=== PATIENT | female | born 1965 | race Caucasian/White ===

== ENCOUNTER 2020-11-10 07:49 | Outpatient (CLI) | payer OTHER, SELFPAY | END 2020-11-10 07:50 | disposition home or self-care (01) | LOC: ANHAUDIO 07:53 | PROVIDERS: Visit Provider Otolaryngology | DX: H90.3 Sensorineural hearing loss, bilateral (principal) | CPT/HCPCS: 92537; 92540; 92546; 92557; 92567 ==

== ENCOUNTER 2025-04-29 15:35 | Outpatient (CLI) | payer MEDICARE, MEDICAID, SELFPAY ==
--- OUTSIDE RECORDS SUMMARY | 2014-03-22 02:34 | XMS_ITS | Continuity of Care Document ---
Author Organization [facility] Address [address] [facility] [address] [facility] [[email or web address]] [address] [place] [address] Phone Care Team Providers Care Tank Terminal Gauger Name Role Phone Aramis Phillips MD, FACS Unavailable Unavailab le Advance Directives Directive Yes / No Effective Date File Name No Information Encounters Encounter Description Practice Location Reason(s) For Visit Diagnoses Date Provider Providers Copied on Encounter [facility], [id number] [place] [address] [address], [place], [place], [id number], [place] tel:[phone] SEC Lanny Steinberg No Information [address] Jacqu[address] Self. [id number] [place] [address] Drive, [address], [place], [place], [id number], [place]. tel:[phone] Family History Family Member Type Diagnosis Age At Onset No Information Payers Payer name Insurance type Covered green party ID Authoriza tion(s) No Information Social History Type Description Quantity Date Captured Comments Sex Female Smoking Status No Information Chief Complaint And Reason For Visit No Information Reason For Referral Reason For Referral No Information History Of Present Illness Encounter Date Complaint History Of Prese nt Illness No Information Functional Status Date Functional Assessmen t No Information Instructions Date Instruction Additional Infor mation No Information Assessments Type Assessment Date No Information Patient Care Teams Name Effective Dates (start - stop) Status Members No Information
--- OUTSIDE RECORDS SUMMARY | 2025-04-29 15:37 | XMS_ITS | Encounter Summary ---
Author Organization [facility] Address [address] [place] [address] Phone Care Team Providers Care Crystal Grinder Name Role Phone Yusra Salazar MD Primary Care Provider Yusra Salazar MD Unavailable [phone] Landry Maria MD Unavailable [phone] Juan Felix MD Unavailable [phone] Annika Hartmann MD Unavailable [phone] Noe ALCARAZ MD, Michelle Unavailable [phone] Yoan Sharma MD Unavailable [phone] Provider, None Primary Care Provider UnavailKareen Humphreys APRN, CASKET TRIMMER Unavailable Walt Gage DO Primary Care Provider Reason for Visit * Reason Comments Medication Refill Encounter Details Date Type Department Care Team (Late st Contact Info) Description 06/15/2022 Refill [facility] [address] [place] [address] Madelyn Kelly MD [address] [place] [address] Medication Refill Social History Tobacco Use Types Packs/Day Years Used Date Smoking Tobacco: Never Smokeless Tobacco: Never Alcohol Use Standard Drinks/Week Comments No 0 (1 standard drink = 0.6 oz pur e alcohol) PHQ-2 Answer Date Recorded Total Score - Questions 1-9 0 11/0 12/2021 Education Answer Date Recorded What is the highest level of school you have completed or the highest degree you have received? 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 Not on file Not on file documented as of this encounter Miscellaneous Notes * Telephone Encounter - Lianet Mujica RN - 06/16/2022 8:38 AM CST duplicate NT TRAINER documented in this encounter Plan of Treatment Upcoming Encounters Date Type Department Care Team (Late st Contact Info) Description 05/30/2025 1:00 PM PARENT TRAINER Office Visit [facility] On[facility] [address] [place] [address] Juan Felix MD [address] [place] [address] Discharge Disposition: Discharged to home or Selfcare documented as of this encounter Goals Goal Patient Goal Type Associated Problems Recent Progress Patient-Stated? Author Behavioral Health Behavioral Health On track(2021 4:08 PM CDT) Yes Yoly Zarco LCSW Note: I just need to be able to cope with all this that is going on. Goal Reviewed with: patient today Readiness to change: Ready to change Department associated with goal: [facility] Steps to achieve goal: will identify at least two ways their behavioral health impacts their physical health and vice versa. will identify at least two ways/skills/habits to reduce exacerbation of co- occurring disorders. will implement at least one new way/skill/habit to reduce exacerbation of co-occurring disorders. Will attend video appointments at least 2x/month for 30 or 45 min individual session for at least 4 months. Behavioral Health Behavioral Health On track(2021 4:08 PM CDT) Yoly Roe LCSW Note: Dodie will manage depression and anxiety more effectively to have reduction of anxiety and depression symptoms. Goal Reviewed with: patient today Readiness to change: Ready to change Department associated with goal: [facility] Steps to achieve goal: to attend, at least twice monthly, 45 min individual video counseling sessions. to identify, verbalize and process at least three contributing factors/triggers to anxiety and depression. to identify and verbalize at least three actions/skills to prevent and/or cope with anxiety and depression. to put into action, at least one time weekly, for one month, an action/skill to prevent and or cope with anxiety and depression. documented as of this encounter Visit Diagnoses Diagnosis Nausea Nausea alone documented in this encounter Additional Health Concerns Infection Onset Date Last Indicated Resolved Time Respiratory Rule Out - RPA 08/08/2022 08/08/2022 0 08/08/2022 3:34 PM PARENT TRAINER Influenza 08/08/2022 08/08/2022 08/15/2022 12:1 6 AM PARENT TRAINER Assessment Noted Time PHQ-9 Depression Total Score: 0 04/26/20 22 2:16 PM PARENT TRAINER documented as of this encounter Care Teams Crystal Grinder Relationship Specialty Start Date End Date Yusra Salazar MD PCP - General Family Medicine 06/21/21 08/09/23 Provider, None [place] PCP - General 08/10/23 09/28/23 Walt Gage DO [facility] [place], [place] [id number] PCP - General Internal Medicine 09/29/23 Yusra Salazar MD Family Medicine 06/21/21 10/13/23 Landry Maria MD [address] [place], [place] [address] Consulting Physician Radiation Oncology 06/26/19 Juan Felix MD [address] [place], [place] [address] Consulting Physician Medical Oncology 06/26/19 Annika Hartmann MD [address] [place] [address] Consulting Physician General Surgery 06/26/19 Michelle Liu III, MD [address] [place] [address] Consulting Physician Urology 12/06/22 Yoan Sharma MD [address] [place] [address] Consulting Physician Neurology 07/26/23 Kareen Koenig APRN, CASKET TRIMMER [address] [place] [address] Nurse Practitioner Advanced Practice Nurse 10/14/22 documented as of this encounter
--- OUTSIDE RECORDS SUMMARY | 2025-04-29 15:38 | XMS_ITS | Encounter Summary ---
Author Organization [facility] Address [address] [place] [address] Phone Care Team Providers Care Planer Tailer Name Role Phone Yusra Salazar MD Primary Care Provider Yusra Salazar MD Unavailable [phone] Ladnry Maria MD Unavailable [phone] Juan Felix MD Unavailable [phone] Annika Hartmann MD Unavailable [phone] Noe ALCARAZ MD, Michelle Unavailable [phone] Yoan Sharma MD Unavailable [phone] Provider, None Primary Care Provider UnavailKareen Humphreys APRN, RESIDENTIAL TREATMENT COUNSELOR Unavailable Walt Gage DO Primary Care Provider Reason for Visit * Reason Comments Medication Refill Encounter Details Date Type Department Care Team (Late st Contact Info) Description 09/21/2022 Refill [facility] [address] [place] [id number] [place] [address] [place] [address] Medication Refill Social History Tobacco Use Types [...] Sex Assigned at Female 07/08/2023 8:53 PM HIP HOP ARTIST Legal Sex Female 10:43 PM CDT Gender Identity Female 07/08/2023 8:53 PM HIP HOP ARTIST Sexual Orientation Straight 07/08/2023 8: 59 PM HIP HOP ARTIST 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 No / Unsure 08/30/2022 3:10 PM CDT documented as of this encounter Miscellaneous Notes * Telephone Encounter - Teresa Jordan RN - 09/22/2022 12:10 PM CDT Medication failed the protocol, provider to review and approve the medication order if appropriate. Requested Prescriptions Pending Prescriptions Disp Refills gabapentin (NEURONTIN) 800 MG Tablet [Pharmacy Med Name: Gabapentin 800 MG Oral Tablet] 90 Tablet 0 Sig: TAKE 1 TABLET BY MOUTH THREE TIMES DAILY Not Delegated - Anticonvulsants Excluding Benzodiazepines Protocol Failed - 09/21/2022 5:50 PM Failed - This refill cannot be delegated Passed - Visit with relevant provider in past 12 months or upcoming 90 days Recent Visits Date Type Provider Dept 07/28/22 Office Visit Yusra Salazar MD [facility] 04/26/22 Office Visit Yusra Salazar MD [facility] 03/25/22 Office Visit Elle Marshall PAC [facility] 02/05/22 Office Visit Sabine Ramirez APRN, RESIDENTIAL TREATMENT COUNSELOR [facility] Showing recent visits within past 365 days and meeting all other requirements Future Appointments Date Type Provider Dept 10/27/22 Appointment Yusra Salazar MD [facility] Showing future appointments within next 90 days and meeting all other requirements Azelastine HCl 137 MCG/SPRAY Solution [Pharmacy Med Name: Azelastine HCl 137 MCG/SPRAY Nasal Solution] 30 mL 0 Sig: USE 1 SPRAY(S) IN NOSTRIL(S) ONCE DAILY Nasal Preparations - Other Protocol Passed - 09/21/2022 5:50 PM Passed - Visit with authorizing provider in past 12 months or upcoming 90 days Recent Visits Date Type Provider Dept 07/28/22 Office Visit Yusra Salazar MD [facility] 04/26/22 Office Visit Yusra Salazar MD [facility] 03/25/22 Office Visit Elle Marshall PAC [facility] 02/05/22 Office Visit Sabine Ramirez APRN, [facility] Showing recent visits within past 365 days and meeting all other requirements Future Appointments Date Type Provider Dept 10/27/22 Appointment Yusra Salazar MD [facility] Showing future appointments within next 90 days and meeting all other requirements documented in this encounter Plan of Treatment Upcoming Encounters Date Type Department Care Team (Late st Contact Info) Description 05/30/2025 1:00 PM HIP HOP ARTIST Office Visit [facility] Oncology Services [address] [place] [address] Juan Felix MD [address] [place] [address] Discharge Disposition: Discharged to home or Selfcare [...] Ready to change Department associated with goal: [facility] Steps to achieve goal: [...] Ready to change Department associated with goal: [facility] Steps to achieve goal: [...] documented as of this encounter Visit Diagnoses Not on filedocumented in this encounter Additional Health Concerns Assessment Noted Time PHQ-9 Depression Total Score: 0 04/26/20 22 2:16 PM HIP HOP ARTIST documented as of this encounter Care Teams Planer Tailer Relationship Specialty Start Date End Date Yusra Salazar MD PCP - General Family Medicine 06/21/21 08/09/23 Provider, None [place] PCP - General 08/10/23 09/28/23 Walt Gage DO [address] [place] [address] [place] [address] PCP - General Internal Medicine 09/29/23 Yusra Salazar MD Family Medicine 06/21/21 10/13/23 Landry Maria MD [address] [place] [address] Consulting Physician Radiation Oncology 06/26/19 Juan Felix MD [address] [place] [address] Consulting Physician Medical Oncology 06/26/19 Annika Hartmann MD [address] [place] [address] Consulting Physician General Surgery 06/26/19 Michelle Liu III, MD [address] [place] [address] Consulting Physician Urology 12/06/22 Yoan Sharma MD [address] [place] [address] Consulting Physician Neurology 07/26/23 Kareen Koenig APRN, RESIDENTIAL TREATMENT COUNSELOR [address] [place] [address] Nurse Practitioner Advanced Practice Nurse 10/14/22 documented as of this encounter
--- OUTSIDE RECORDS SUMMARY | 2025-04-29 15:38 | XMS_ITS | Encounter Summary ---
Author Organization [facility] Address [address] [place] [address] Phone Care Team Providers Care Alum Plant Operator Name Role Phone Landry Maria MD Unavailable Juan Felix MD Unavailable [phone] Annika Hartmann MD Unavailable Noe ALCARAZ MD, Courtney Unavailable Yoan Sharma MD Unavailable [phone] Kareen Koenig APRN, CASHIER PAYMENTS RECEIVED Unavailable Walt Gage DO Primary Care Provider Reason for Visit * Reason Comments Medication Refill Encounter Details Date Type Department Care Team (Late st Contact Info) Description 03/05/2024 Refill [facility] - [facility] - [place] [address] [place] [address] Kareen Koenig APRN, CASHIER PAYMENTS RECEIVED [address] [place] [address] Medication Refill Social History Tobacco Use Types Packs/Day Years Used Date Smoking Tobacco: Never Smokeless Tobacco: Never Alcohol Use Standard Drinks/Week Comments No 0 (1 standard drink = 0.6 oz pur e alcohol) PHQ-2 Answer Date Recorded Total Score - Questions 1-9 0 12/2021 Education Answer Date Recorded What is the highest level of school you have completed or the highest degree you have received? 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 documented in this encounter Plan of Treatment Upcoming Encounters Date Type Department Care Team (Late st Contact Info) Description 05/30/2025 1:00 PM TECHNICAL INSTRUCTOR COURSE DEVELOPER Office Visit [facility] Oncology Services [address] [place] [address] Juan Felix MD [address] [place] [address] Discharge Disposition: Discharged to home or Selfcare [...] Ready to change Department associated with goal: [facility] Steps to achieve [...] Ready to change Department associated with goal: [facility] Steps to achieve [...] Total Score: 0 04/26/20 22 2:16 PM TECHNICAL INSTRUCTOR COURSE DEVELOPER documented as of this encounter Care Teams Alum Plant Operator Relationship Specialty Start Date End Date Walt Gage DO [facility] [address] [place], [place] [id number] PCP - General Internal Medicine 09/29/23 Landry Maria MD [address] [place] [address] Consulting Physician Radiation Oncology 06/26/19 Juan Felix MD [address] [place] [address] Consulting Physician Medical Oncology 06/26/19 Annika Hartmann MD [address] [place] [address] Consulting Physician General Surgery 06/26/19 Michelle Liu III, MD [address] [place] [address] Consulting Physician Urology 12/06/22 Yoan Sharma MD [address] [place] [address] Consulting Physician Neurology 07/26/23 Kareen Koenig APRN, CASHIER PAYMENTS RECEIVED [address] [place] [address] Nurse Practitioner Advanced Practice Nurse 10/14/22 documented as of this encounter
--- OUTSIDE RECORDS SUMMARY | 2025-04-29 15:38 | XMS_ITS | Encounter Summary ---
Author Organization [facility] Address [address] [place] [address] Phone Care Team Providers Care Electric Motor Fitter Name Role Phone Yusra Salazar MD Primary Care Provider Yusra Salazar MD Unavailable Landry Maria MD Unavailable [phone] Juan Felix MD Unavailable [phone] Annika Hartmann MD Unavailable [phone] Noe ALCARAZ MD, Michelle Unavailable [phone] Yoan Sharma MD Unavailable [phone] Provider, None Primary Care Provider UnavailKareen Humphreys APRN, MANAGER FLIGHT Unavailable Walt Gage DO Primary Care Provider Reason for Visit * Reason Onset Date Comments Referral 08/13/2022 Encounter Details Date Type Department Care Team (Late st Contact Info) Description 08/13/2022 Telephone [facility] Referral Management Services [address] [place] [address] [place] [address] [place] [address] Referral Social History Tobacco Use Types Packs/Day Years Used Date Smoking Tobacco: Never Smokeless Tobacco: Never Alcohol Use Standard Drinks/Week Comments No 0 (1 standard drink = 0.6 oz pur e alcohol) PHQ-2 Answer Date Recorded Total Score - Questions 1-9 0 110 12/2021 Education Answer Date Recorded What is the highest level of school you have completed or the highest degree you have received? 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 No / Unsure 08/08/2022 2:01 PM MONEY ORDER CLERK documented as of this encounter Miscellaneous Notes * Telephone Encounter - Florencia Lai - 08/13/2022 10:03 AM CST SITUATION: Patient requesting provider review Pain Referral. BACKGROUND: Referral unable to be processed. ASSESSMENT: Request for provider review due to the following reason(s): we were unable to contact patient regarding this referral Closing this referral at this time, but if patient decides to pursue at a later time, it can be opened and worked RECOMMENDATION: Based on the above information the provider has the following option(s): Cancel existing referral. [facility] OnCall - Centralized Referral Management 08/13/2022, 10:03 AM MONEY ORDER CLERK Y ORDER CLERK documented in this encounter Plan of Treatment Upcoming Encounters Date Type Department Care Team (Late st Contact Info) Description 05/30/2025 1:00 PM MONEY ORDER CLERK Office Visit [facility] Oncology Services [address] [place] [address] Juan Felix MD [address] [place] [address] Discharge Disposition: Discharged to home or Selfcare [...] Ready to change Department associated with goal: [facility] Steps to achieve [...] Behavioral Health On track(2021 4:08 PM CDT) No Yoly Zarco LCSW Note: Dodie will manage depression and anxiety more effectively to have reduction of anxiety and depression symptoms. Goal Reviewed with: patient today Readiness to change: Ready to change Department associated with goal: [facility] Steps to achieve [...] filedocumented in this encounter Additional Health Concerns Infection Onset Date Last Indicated Resolved Time Influenza 08/08/2022 08/08/2022 08/15/2022 12:1 6 AM MONEY ORDER CLERK Assessment Noted Time PHQ-9 Depression Total Score: 0 04/26/20 22 2:16 PM MONEY ORDER CLERK documented as of this encounter Care Teams Electric Motor Fitter Relationship Specialty Start Date End Date Yusra Salazar MD PCP - General Family Medicine 06/21/21 08/09/23 Provider, None [place] PCP - General 08/10/23 09/28/23 Walt Gage DO [address] [place] [address] [place] [address] PCP - General Internal Medicine 09/29/23 Yusra Salazar MD Family Medicine 06/21/21 10/13/23 Landry Maria MD [address] [place] [address] Consulting Physician Radiation Oncology 06/26/19 Juan Felix MD [address] [place] [address] Consulting Physician Medical Oncology 06/26/19 Annika Hartmann MD [address] [place] [address] Consulting Physician General Surgery 06/26/19 Michelle Liu III, MD [address] [place] [address] Consulting Physician Urology 12/06/22 Yoan Sharma MD [address] [place] [address] Consulting Physician Neurology 07/26/23 Kareen Koenig APRN, MANAGER FLIGHT [address] [place] [address] Nurse Practitioner Advanced Practice Nurse 10/14/22 documented as of this encounter
--- OUTSIDE RECORDS SUMMARY | 2025-04-29 15:38 | XMS_ITS | Encounter Summary ---
Author Organization [facility] Address [address] [place] [address] Phone Care Team Providers Care Practical Nursing Teacher Name Role Phone Landry Maria MD Unavailable [phone] Juan Felix MD Unavailable Annika Hartmann MD Unavailable [phone] Noe ALCARAZ MD, Courtney Unavailable Yoan Sharma MD Unavailable [phone] Kareen Koenig APRN, [facility] Unavailable Walt Gage DO Primary Care Provider Reason for Visit * Reason Comments Medication Refill Encounter Details Date Type Department Care Team (Late st Contact Info) Description 12/30/2023 Refill [facility] - Family [facility] [address] [place] [address] [place] [address] [place] [address] Medication Refill Social History Tobacco Use Types [...] Sex Assigned at Female 07/08/2023 8:53 PM OPTICAL GLASS SAWYER Legal Sex Female 10:43 PM CDT Gender Identity Female 07/08/2023 8:53 PM OPTICAL GLASS SAWYER Sexual Orientation Straight 07/08/2023 8: 59 PM OPTICAL GLASS SAWYER 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 Behavioral Health Behavioral Health On track(07/01/ 2022 4:08 PM CDT) Yoly Roe, SOLAR SALES ASSESSOR Note: Dodie will manage depression and anxiety more effectively to have reduction of anxiety and depression symptoms. Goal Reviewed with: patient today Readiness to change: Ready to change Department associated with goal: [facility] Steps to [...] Total Score: 0 04/26/20 22 2:16 PM OPTICAL GLASS SAWYER documented as of this encounter Care Teams Practical Nursing Teacher Relationship Specialty Start Date End Date Walt Gage DO [facility] [place] [address] PCP - General Internal Medicine 09/29/23 Landry Maria MD [address] [place] [address] Consulting Physician Radiation Oncology 06/26/19 Juan Felix MD [address] [place] [address] Consulting Physician Medical Oncology 06/26/19 Annika Hartmann MD [address] [place] [address] Consulting Physician General Surgery 06/26/19 Michelle Liu III, MD [address] [place] [address] Consulting Physician Urology 12/06/22 Yoan Sharma MD [address] [place] [address] Consulting Physician Neurology 07/26/23 Kareen Koenig APRN, DIRECT CHILL CASTER [address] [place] [address] Nurse Practitioner Advanced Practice Nurse 10/14/22 documented as of this encounter
--- OUTSIDE RECORDS SUMMARY | 2025-04-29 15:38 | XMS_ITS | Encounter Summary ---
Author Organization [facility] Address [address] [place] [address] Phone Care Team Providers Care Package Worker Name Role Phone Yusra Salazar MD Primary Care Provider Yusra Salazar MD Unavailable Landry Maria MD Unavailable Juan Felix MD Unavailable [phone] Annika Hartmann MD Unavailable [phone] Noe ALCARAZ MD, Michelle Unavailable [phone] Yoan Sharma MD Unavailable [phone] Provider, None Primary Care Provider UnavailKareen Humphreys APRN, RESIDENTIAL SALES REPRESENTATIVE Unavailable Walt Gage DO Primary Care Provider Reason for Visit * Reason Comments Medication Refill Encounter Details Date Type Department Care Team (Late st Contact Info) Description 07/21/2021 Refill [facility] [address] [place] [id number] [place] [address] [place] [address] Medication Refill Social History Tobacco Use Types Packs/Day Years Used Date Smoking Tobacco: Never Smokeless Tobacco: Never Alcohol Use Standard Drinks/Week Comments No 0 (1 standard drink = 0.6 oz pur e alcohol) PHQ-2 Answer Date Recorded Total Score - Questions 1-9 25 09/19 Education Answer Date Recorded What is the highest level of school you have completed or the highest degree you have received? 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 No / Unsure 07/15/2021 1:16 PM SUPERVISOR METAL CANS documented as of this encounter Miscellaneous Notes * Telephone Encounter - Karis Johnston RN - 07/21/2021 5:15 PM CST rOPINIRole (REQUIP) 0.25 MG Tablet 60 Tablet 0 07/09/2021 Sig - Route: Take 1 Tablet by mouth nightly. - Oral Sent to pharmacy as: rOPINIRole HCl 0.25 MG Oral Tablet (REQUIP) Class: E Prescribe E-Prescribing Status: Receipt confirmed by pharmacy (07/09/2021 ??1:05 PM SUPERVISOR METAL CANS) Order Questions ?? rOPINIRole (REQUIP) 0.25 MG Tablet [[id number]] 6940 Status: Active Ordering user: Yusra Salazar MD 07/09/21 5074 Authorized by: Yusra Salazar MD Frequency: Nightly 07/09/21 - Until Discontinued Released by: Yusra Salazar MD 07/09/21 1304 Pharmacy [facility] [address] [place] [address] RVISOR METAL CANS documented in this encounter Plan of Treatment Upcoming Encounters Date Type Department Care Team (Late st Contact Info) Description 05/30/2025 1:00 PM SUPERVISOR METAL CANS Office Visit [facility] Oncology Services [address] [place] [address] Juan Felix MD [address] [place] [address] Discharge Disposition: Discharged to home or Selfcare [...] Ready to change Department associated with goal: [facility] Steps to achieve goal: [...] Ready to change Department associated with goal: [facility] Steps to achieve goal: [...] RPA 08/08/2022 08/08/2022 0 08/08/2022 3:34 PM SUPERVISOR METAL CANS Influenza 08/08/2022 08/08/2022 08/15/2022 12:1 6 AM SUPERVISOR METAL CANS Assessment Noted Time PHQ-9 Depression Total Score: 25 021 5:00 PM CDT documented as of this encounter Care Teams Package Worker Relationship Specialty Start Date End Date Yusra Salazar MD PCP - General Family Medicine 06/21/21 08/09/23 Provider, [facility] PCP - General 08/10/23 09/28/23 Walt Gage DO [address] [place] [address] [place] [address] PCP - General Internal Medicine 09/29/23 Yusra Salazar MD Family Medicine 06/21/21 10/13/23 Landry Maria MD [address] [place], [place] [id number] Consulting Physician Radiation Oncology 06/26/19 Juan Felix MD [address] [place] [address] Consulting Physician Medical Oncology 06/26/19 Annika Hartmann MD [address] [place] [address] Consulting Physician General Surgery 06/26/19 Michelle Liu III, MD [address] [place] [address] Consulting Physician Urology 12/06/22 Yoan Sharma MD [address] [place] [id number] Consulting Physician Neurology 07/26/23 Kareen Koenig APRN, RESIDENTIAL SALES REPRESENTATIVE [address] [place] [address] Nurse Practitioner Advanced Practice Nurse 10/14/22 documented as of this encounter
--- OUTSIDE RECORDS SUMMARY | 2025-04-29 15:38 | XMS_ITS | Encounter Summary ---
Author Organization [facility] Address [address] [place] [address] Phone Care Team Providers Care Optical Effects Line Up Person Name Role Phone Yusra Salazar MD Primary Care Provider Yusra Salazar MD Unavailable [phone] Landry Maria MD Unavailable [phone] Juan Felix MD Unavailable [phone] Annika Hartmann MD Unavailable [phone] Noe ALCARAZ MD, Courtney Unavailable [phone] Yoan Sharma MD Unavailable [phone] Provider, None Primary Care Provider UnavailKareen Humphreys APRN, COUNTER CLERK TRACTOR PARTS Unavailable Walt Gage DO Primary Care Provider Reason for Visit * Reason Comments Medication Refill Encounter Details Date Type Department Care Team (Late st Contact Info) Description 03/29/2022 Refill [facility] - [place] [address] [place] [address] Sabine Ramirez, QUALITY LEAD, COUNTER CLERK TRACTOR PARTS [address] [address] Medication Refill Social History Tobacco Use Types Packs/Day Years Used Date Smoking Tobacco: Never Smokeless Tobacco: Never Alcohol Use Standard Drinks/Week Comments No 0 (1 standard drink = 0.6 oz pur e alcohol) PHQ-2 Answer Date Recorded Total Score - Questions 1-9 0 01/18 Education Answer Date Recorded What is the highest level of school you have completed or the highest degree you have received? 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 No / Unsure 03/25/2022 3:25 PM CDT documented as of this encounter Miscellaneous Notes * Telephone Encounter - Karis Johnston RN - 03/29/2022 3:54 PM CDT Medication failed the protocol, provider to review and approve the medication order if appropriate. Requested Prescriptions Pending Prescriptions Disp Refills hydrOXYzine (VISTARIL) 50 MG Capsule [Pharmacy Med Name: hydrOXYzine Pamoate 50 MG Oral Capsule] 90Capsule 0 Sig: TAKE 1 CAPSULE BY MOUTH THREE TIMES DAILY NEEDED FOR ANXIETY Not Delegated - Off Protocol Failed - 03/29/2022 9:10 AM Failed - This refill cannot be delegated Passed - Visit with relevant provider in past 12 months or upcoming 90 days Recent Visits Date Type Provider Dept 03/25/22 [facility] Office Visit Sabine Ramirez APRN, COUNTER CLERK TRACTOR PARTS [facility] 07/09/21 Office Visit Yusra Salazar MD [facility] 05/28/21 Office Visit [facility] Showing recent visits within past 365 days and meeting all other requirements Future Appointments Date Type Provider Dept 04/29/22 Appointment Yusra Salazar MD [facility] Showing future appointments within next 90 days and meeting all other requirements documented in this encounter Plan of Treatment Upcoming Encounters Date Type Department Care Team (Late st Contact Info) Description 05/30/2025 1:00 PM RECREATIONAL THERAPY TECHNICIAN Office Visit [facility] Oncology Services [address] [place] [address] Juan Felix MD [address] [place] [address] Discharge Disposition: Discharged to home or Selfcare [...] Ready to change Department associated with goal: [facility] Steps to achieve [...] Ready to change Department associated with goal: [facility] Steps to achieve [...] as of this encounter Visit Diagnoses Diagnosis Fibromyalgia Mylagia and myositis, unspecified documented in this encounter Additional Health Concerns Infection Onset Date Last Indicated Resolved Time Respiratory Rule Out - RPA 08/08/2022 08/08/2022 0 08/08/2022 3:34 PM RECREATIONAL THERAPY TECHNICIAN Influenza 08/08/2022 08/08/2022 08/15/2022 12:1 6 AM RECREATIONAL THERAPY TECHNICIAN Assessment Noted Time PHQ-9 Depression Total Score: 25 021 5:00 PM CDT documented as of this encounter Care Teams Optical Effects Line Up Person Relationship Specialty Start Date End Date Yusra Salazar MD PCP - General Family Medicine 06/21/21 08/09/23 Provider, None [place] PCP - General 08/10/23 09/28/23 Walt Gage DO [address] [place] [address] PCP - General Internal Medicine 09/29/23 Yusra Salazar MD Family Medicine 06/21/21 10/13/23 Landry Maria MD [address] [place] [address] Consulting Physician Radiation Oncology 06/26/19 Juan Felix MD [address] [place], [place] [phone] Consulting Physician Medical Oncology 06/26/19 Annika Hartmann MD [address] [place] [address] Consulting Physician General Surgery 06/26/19 Michelle Liu III, MD [address] [place] [address] Consulting Physician Urology 12/06/22 Yoan Sharma MD [address] [place] [phone] Consulting Physician Neurology 07/26/23 Kareen Koenig APRN, COUNTER CLERK TRACTOR PARTS [address] [place] [address] Nurse Practitioner Advanced Practice Nurse 10/14/22 documented as of this encounter
--- OUTSIDE RECORDS SUMMARY | 2025-04-29 15:38 | XMS_ITS | Clinical Summary ---
Author Organization [facility] Address [facility] [place] [address] Care Team Providers Care Bicycle Ii Assembler Name Role Phone Chance Valles NP Primary Care Provider [phone] Allergies Active Allergy Reactions Criticality Noted Date Comments Nsaids Other (see comment) 10/27/[address] MOLINA DOES NOT WANT HER TO TAKE Medications dicyclomine 20 MG tablet Take 20 mg by mouth. Active hydrOXYzine 50 MG capsule 3 times daily as needed. Active metoprolol succinate 50 MG 24 hr tablet Take 50 mg by mouth. Active HYDROXYPROPYL METHYLCELLULOSE 0.4 % Solution Active fluticasone propionate 50 MCG/ACT nasal spray 2 times daily. Reported on 09/08/2016 Active ranitidine 300 MG tablet Take 300 mg by mouth. 8 Active ropinirole 0.25 MG tablet Take 0.25 mg by mouth. Active sertraline 100 MG tablet Take 200 mg by mouth. Active SUMAtriptan 100 MG tablet Take 100 mg by mouth. Active tizanidine 4 MG tablet Active traMADol 50 MG tablet 0 8 Active gabapentin 300 MG capsule Take 600 mg by mouth 3 (three) times daily. Active ALPRAZolam 0.5 MG tablet 0 8 Active HYDROXYPROPYL METHYLCELLULOSE 0.4 % Solution Active Active Problems Problem Noted Date Diagnosed Date Myofascial muscle pain 04/26/2018 Cervical radiculopathy 01/18/2018 Family History Medical History Relation Comments Hypertension Brother Heart Attack Father arthersclerosis Father skin cancer Father tremors Father Hypertension Mother cataracts Mother non-Hodgkins Lymphoma Mother Relation Status Comments Brother Father Heart attack age 52 Mother Social History Tobacco Use Types Packs/Day Years Used Date Smoking Tobacco: Never Smokeless Tobacco: Never Alcohol Use Standard Drinks/Week Comments No 0 (1 standard drink = 0.6 oz pur e alcohol) Comments No Sex and Gender Information Value Date Recorded Sex Assigned at Not on file Legal Sex Female 1:40 PM CDT Gender Identity Not on file Sexual Orientation Not on file Occupation Industry Job Start Date Job End Date Not on file Not on file Not on file Not on file Last Filed Vital Signs Vital Sign Reading Time Taken Comments Blood Pressure 154/99 04/26/2018 2:22 PM BALLISTICS EXPERT Pulse 76 04/26/2018 2:22 PM BALLISTICS EXPERT Temperature 36.8 C (98.3 F) 04/26/2018 1:45 PM BALLISTICS EXPERT Respiratory Rate 18 04/26/2018 2:22 PM BALLISTICS EXPERT Oxygen Saturation 95% 04/26/2018 2:22 PM BALLISTICS EXPERT Inhaled Oxygen Concentration - - Weight 112.5 kg (248 lb) 04/26/2018 1:45 PM BALLISTICS EXPERT Height 171.5 cm (5' 7.5) 04/26/2018 1:45 PM BALLISTICS EXPERT Body Mass Index 38.27 04/26/2018 1:45 PM BALLISTICS EXPERT Plan of Treatment Health Maintenance Due Date Last Done Comments Colorectal Cancer Screening Colonoscopy (10 Years) 1967 Annual Physical 12/27/1970 Hepatitis C 12/27/1985 DTaP, Tdap and Td Vaccines ( 1 - Tdap) 12/27/1986 Hepatitis B Vaccines (1 of 3 - 19+ 3-dose series) 12/27/1986 Mammogram Screening 2007 Pneumococcal Vaccine: 50+ Ye ars (1 of 1 - PCV) 12/27/2017 Zoster Vaccines (1 of 2) 12/27/2017 COVID-19 Vaccine (2024-2 6 season) 2025 Influenza Adult (#1) 2025 Hepatitis A Vaccines Aged Out No long er eligible based on patient's age to complete this topic Meningococcal B Vaccine Aged Out No l onger eligible based on patient's age to complete this topic Meningococcal Vaccine Aged Out No edith krishna eligible based on patient's age to complete this topic RSV Immunizations Under 20 Months Aged Out No longer eligible based on patient's age to complete [place] [address] N[place]E Care Teams Bicycle Ii Assembler Relationship Specialty Start Date End Date Chance Valles NP PCP - General FAMILY PRACTICE 03/03/18
--- OUTSIDE RECORDS SUMMARY | 2025-04-29 15:38 | XMS_ITS | Encounter Summary ---
Author Organization [facility] Address [address] [place] [address] Phone Care Team Providers Care Inspector Bullet Slugs Name Role Phone Yusra Salazar MD Primary Care Provider Yusra Salazar MD Unavailable [phone] Landry Maria MD Unavailable Juan Felix MD Unavailable [phone] Annika Hartmann MD Unavailable [phone] Noe ALCARAZ MD, Michelle Unavailable [phone] Yoan Sharma MD Unavailable [phone] Provider, None Primary Care Provider UnavailKareen Humphreys APRN, IT OPERATIONS SPECIALIST Unavailable Walt Gage DO Primary Care Provider Reason for Visit * Reason Comments Medication Refill Encounter Details Date Type Department Care Team (Late st Contact Info) Description 03/04/2023 Refill [facility] [address] [place] [phone] [place] [address] [place] [address] Medication Refill Social History Tobacco Use Types [...] Sex Assigned at Female 07/08/2023 8:53 PM PAPER TUBE MACHINE OPERATOR Legal Sex Female 10:43 PM CDT Gender Identity Female 07/08/2023 8:53 PM PAPER TUBE MACHINE OPERATOR Sexual Orientation Straight 07/08/2023 8: 59 PM PAPER TUBE MACHINE OPERATOR 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 Requested Prescriptions Pending Prescriptions Disp Refills tiZANidine (ZANAFLEX) 4 MG Tablet [Pharmacy Med Name: tiZANidine HCl 4 MG Oral Tablet] 90 Tablet 0 Sig: TAKE 1 TABLET BY MOUTH THREE TIMES DAILY Not Delegated - Muscle Relaxants Protocol Failed - 03/04/2023 2:48 PM Failed - This refill cannot be delegated Failed - ALT less than 90 and AST less than 55 on record in past 12 months SGOT (AST) Date Value Ref Range Status 10/25/2022 88 (H) <=32 U/L Final SGPT (ALT) Date Value Ref Range Status 10/25/2022 62 (H) <=41 U/L Final Passed - Visit with relevant provider in past 12 months or upcoming 90 days Recent Visits Date Type Provider Dept 11/09/22 Office Visit Yusra Salazar MD [facility] 07/28/22 Office Visit Yusra Salazar MD [facility] 04/26/22 Office Visit Yusra Salazar MD [facility] 03/25/22 Office Visit Elle Marshall PAC [facility] Showing recent visits within past 365 days and meeting all other requirements Future Appointments No visits were found meeting these conditions. Showing future appointments within next 90 days and meeting all other requirements documented in this encounter Plan of Treatment Upcoming Encounters Date Type Department Care Team (Late st Contact Info) Description 05/30/2025 1:00 PM PAPER TUBE MACHINE OPERATOR Office Visit [facility] Oncology Services [address] [place] [phone] Juan Felix MD [address] [place] [address] Discharge Disposition: Discharged to home or Selfcare [...] Ready to change Department associated with goal: [facility] Steps [...] PM CDT) No Yoly Zarco LCSW Note: Ddoie will manage depression and anxiety more effectively to have reduction of anxiety and depression symptoms. Goal Reviewed with: patient today Readiness to change: Ready to change Department associated with goal: [facility] Steps [...] Total Score: 0 04/26/20 22 2:16 PM PAPER TUBE MACHINE OPERATOR documented as of this encounter Care Teams Inspector Bullet Slugs Relationship Specialty Start Date End Date Yusra Salazar MD PCP - General Family Medicine 06/21/21 08/09/23 Provider, [facility] PCP - General 08/10/23 09/28/23 Walt Gage DO [address] [place] [address] [place], [place] [id number] PCP - General Internal Medicine 09/29/23 Yusra Salazar MD Family Medicine 06/21/21 10/13/23 Landry Maria MD [address] [place] [address] Consulting Physician Radiation Oncology 06/26/19 Juan Felix MD [address] [place] [address] Consulting Physician Medical Oncology 06/26/19 Annika Hartmann MD [address] [place] [address] Consulting Physician General Surgery 06/26/19 Michelle Liu III, MD [address] [place] [address] Consulting Physician Urology 12/06/22 Yoan Sharma MD [address] [place] [address] Consulting Physician Neurology 07/26/23 Kareen Koenig APRN, IT OPERATIONS SPECIALIST [address] [place] [address] Nurse Practitioner Advanced Practice Nurse 10/14/22 documented as of this encounter
--- OUTSIDE RECORDS SUMMARY | 2025-04-29 15:38 | XMS_ITS | Encounter Summary ---
Author Organization [facility] Address [address] [place] [address] Care Team Providers Care Sprinkler Repair Technician Name Role Phone Unavailable Primary Care Provider Unavailabl e Encounter Details Date Type Department Care Team (Late st Contact Info) Description 02/10/2000 Outpatient Historical [facility] Primary Care - [address] [place] [address] Alan Pradhan, DO NO ADDRESS ON FILE Social History Tobacco Use Types Packs/Day Years Used Date Smoking Tobacco: Never Assessed Comments Unknown Sex and Gender Information Value Date Recorded Sex Assigned at Not on file Legal Sex Female 4:24 AM QUILL COLLECTOR Gender Identity Not on file Sexual Orientation Not on file documented as of this encounter Plan of Treatment Not on file documented as of this encounter Visit Diagnoses Not on filedocumented in this encounter
--- OUTSIDE RECORDS SUMMARY | 2025-04-29 15:38 | XMS_ITS | Encounter Summary ---
Author Organization [facility] Address [address] [place] [address] Phone Care Team Providers Care Health It Specialist Name Role Phone Yusra Salazar MD Primary Care Provider Yusra Salazar MD Primary Care Provider [phone] Yusra Salazar MD Unavailable Landry Maria MD Unavailable [phone] Juan Felix MD Unavailable [phone] Annika Hartmann MD Unavailable [phone] Noe ALCARAZ MD, Courtney Unavailable [phone] Yoan Sharma MD Unavailable [phone] Provider, None Primary Care Provider UnavailKareen Humphreys APRN, SUPERVISOR CHANNEL PROCESS Unavailable Walt Gage DO Primary Care Provider Reason for Visit * Reason Comments Medication Refill Encounter Details Date Type Department Care Team (Late st Contact Info) Description 01/07/2021 [facility] [address] [place] [address] Juan Felix MD [address] [place] [address] Medication Refill Social History Tobacco Use Types Packs/Day Years Used Date Smoking Tobacco: Never Smokeless Tobacco: Never Alcohol Use Standard Drinks/Week Comments No 0 (1 standard drink = 0.6 oz pur e alcohol) PHQ-2 Answer Date Recorded Total Score - Questions 1-9 25 09/19 Comments No Sex and Gender Information Value Date Recorded Sex Assigned at Female 07/08/2023 8:53 PM SURFACE LAY OUT TECHNICIAN Legal Sex Female 10:43 PM CDT Gender Identity Female 07/08/2023 8:53 PM SURFACE LAY OUT TECHNICIAN Sexual Orientation Straight 07/08/2023 8: 59 PM SURFACE LAY OUT TECHNICIAN 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 No / Unsure 12/29/2020 12:50 PM CDT documented as of this encounter Miscellaneous Notes * Telephone Encounter - Alyson Dalton RN - 01/08/2021 8:46 AM CDT Approved Effexor per last OV note. * Telephone Encounter - Diana Penaloza RN - 01/07/2021 11:00 AM CDT Refill request for Effexor-XR, 90 tabs ordered back in September. Okay to refill? documented in this encounter Plan of Treatment Upcoming Encounters Date Type Department Care Team (Late st Contact Info) Description 05/30/2025 1:00 PM SURFACE LAY OUT TECHNICIAN Office Visit [facility] Oncology Services [address] [place] [address] Juan Felix MD [address] [place] [address] Discharge Disposition: Discharged to home or Selfcare [...] Ready to change Department associated with goal: [facility] Steps to achieve goal: [...] Ready to change Department associated with goal: [facility] Steps to achieve goal: [...] Infection Onset Date Last Indicated Resolved Time COVID - 19 06/21/2021 06/21/2021 07/11/2021 12:1 6 AM SURFACE LAY OUT TECHNICIAN COVID - 19 Confirmed 06/21/2021 06/21/2021 022 12:16 AM SURFACE LAY OUT TECHNICIAN Respiratory Rule Out - RPA 08/08/2022 08/08/2022 0 08/08/2022 3:34 PM SURFACE LAY OUT TECHNICIAN Influenza 08/08/2022 08/08/2022 08/15/2022 12:1 6 AM SURFACE LAY OUT TECHNICIAN Assessment Noted Time PHQ-9 Depression Total Score: 25 021 5:00 PM CDT documented as of this encounter Care Teams Health It Specialist Relationship Specialty Start Date End Date Yusra Salazar MD PCP - General Family Medicine 02/15/19 06/20/21 Yusra Salazar MD PCP - General Family Medicine 06/21/21 08/09/23 Provider, None [place] PCP - General 08/10/23 09/28/23 Walt Gage DO [address] [place] [address] [place] [address] PCP - General Internal Medicine 09/29/23 Yusra Salazar MD Family Medicine 06/21/21 10/13/23 Landry Maria MD [address] [place], [place] [address] Consulting Physician Radiation Oncology 06/26/19 Juan Felix MD [address] [place] [address] Consulting Physician Medical Oncology 06/26/19 Annkia Hartmann MD [address] [place] [address] Consulting Physician General Surgery 06/26/19 Michelle Liu III, MD [address] [place] [address] Consulting Physician Urology 12/06/22 Yoan Sharma MD [address] [place] [address] Consulting Physician Neurology 07/26/23 Kareen Koenig APRN, SUPERVISOR CHANNEL PROCESS [address] [place] [address] Nurse Practitioner Advanced Practice Nurse 10/14/22 documented as of this encounter
--- OUTSIDE RECORDS SUMMARY | 2025-04-29 15:38 | XMS_ITS | Encounter Summary ---
Author Organization [facility] Address [address] [place] [address] Phone Care Team Providers Care Staker Surveying Name Role Phone Yusra Salazar MD Primary Care Provider Yusra Salazar MD Unavailable Landry Maria MD Unavailable Juan Felix MD Unavailable [phone] Annika Hartmann MD Unavailable [phone] Noe ALCARAZ MD, Michelle Unavailable [phone] Yoan Sharma MD Unavailable [phone] Provider, None Primary Care Provider UnavailKareen Humphreys APRN, CHANNELING MACHINE OPERATOR Unavailable Walt Gage DO Primary Care Provider Reason for Visit * Reason Comments Medication Refill Encounter Details Date Type Department Care Team (Late st Contact Info) Description 01/29/2023 Refill [facility] [address] [place] [id number] [place] [address] [place] [address] Medication Refill Social History Tobacco Use Types [...] Sex Assigned at Female 07/08/2023 8:53 PM ANIMAL BOUNTY HUNTER Legal Sex Female 10:43 PM CDT Gender Identity Female 07/08/2023 8:53 PM ANIMAL BOUNTY HUNTER Sexual Orientation Straight 07/08/2023 8: 59 PM ANIMAL BOUNTY HUNTER 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 Requested Prescriptions Pending Prescriptions Disp Refills venlafaxine (EFFEXOR-XR) 75 MG CAPSULE SR 24 HR [Pharmacy Med Name: Venlafaxine HCl ER 75 MG Oral Capsule Extended Release 24 Hour] 90 Capsule 0 Sig: Take 1 capsule by mouth once daily SNRI (6 Month Refill Only) Protocol Failed - 01/29/2023 2:51 AM Failed - Patient has established therapy with Serotonin-Norepinephrine Reuptake Inhibitors for at least 6 months Passed - Visit with relevant provider in past 6 months or upcoming 90 days Recent Visits Date Type Provider Dept 11/09/22 Office Visit Yusra Salazar MD [facility] Showing recent visits within past 182 days and meeting all other requirements Future Appointments Date Type Provider Dept 02/09/23 Appointment Yusra Salazar MD [facility] Showing future appointments within next 90 days and meeting all other requirements Passed - Has an encounter in the past 6 months with a depression or anxiety visit diagnosis documented in this encounter Plan of Treatment Upcoming Encounters Date Type Department Care Team (Late st Contact Info) Description 05/30/2025 1:00 PM ANIMAL BOUNTY HUNTER Office Visit [facility] Oncology Services [address] [place] [address] Juan Felix MD [address] [place] [address] Discharge Disposition: Discharged to home or Selfcare [...] Ready to change Department associated with goal: [facility] Steps to achieve goal: [...] Ready to change Department associated with goal: [facility] Steps to achieve goal: [...] Total Score: 0 04/26/20 22 2:16 PM ANIMAL BOUNTY HUNTER documented as of this encounter Care Teams Staker Surveying Relationship Specialty Start Date End Date Yusra Salazar MD PCP - General Family Medicine 06/21/21 08/09/23 Provider, [facility] PCP - General 08/10/23 09/28/23 Walt Gage DO [address] [place] [address] [address] [place], [place] [id number] PCP - General Internal Medicine 09/29/23 Yusra Salazar MD Family Medicine 06/21/21 10/13/23 Landry Maria MD [address] [place] [address] Consulting Physician Radiation Oncology 06/26/19 Juan Felix MD [address] [place] [address] Consulting Physician Medical Oncology 06/26/19 Annika Hartmann MD [address] [place] [address] Consulting Physician General Surgery 06/26/19 Michelle Liu III, MD [address] [place] [address] Consulting Physician Urology 12/06/22 Yoan Sharma MD [address] [place] [phone] Consulting Physician Neurology 07/26/23 Kareen Koenig APRN, CHANNELING MACHINE OPERATOR [address] [place] [address] Nurse Practitioner Advanced Practice Nurse 10/14/22 documented as of this encounter
--- OUTSIDE RECORDS SUMMARY | 2025-04-29 15:38 | XMS_ITS | Encounter Summary ---
Author Organization [facility] Address [address] [place] [address] Phone Care Team Providers Care Insole And Heel Stiffener Name Role Phone Yusra Salazar MD Primary Care Provider Yusra Salazar MD Unavailable Landry Maria MD Unavailable [phone] Juan Felix MD Unavailable [phone] Annika Hartmann MD Unavailable [phone] Noe ALCARAZ MD, Michelle Unavailable [phone] Yoan Sharma MD Unavailable [phone] Provider, None Primary Care Provider UnavailKareen Humphreys APRN, ACCOUNT MANAGER EDUCATION Unavailable Walt Gage DO Primary Care Provider Reason for Visit * Reason Comments Medication Refill Encounter Details Date Type Department Care Team (Late st Contact Info) Description 02/16/2023 Refill [facility] [address] [place] [id number] Florian Gómez MD [address] [address] Medication Refill Social History Tobacco Use Types [...] Sex Assigned at Female 07/08/2023 8:53 PM SENIOR INFORMATION SECURITY CONSULTANT Legal Sex Female 10:43 PM CDT Gender Identity Female 07/08/2023 8:53 PM SENIOR INFORMATION SECURITY CONSULTANT Sexual Orientation Straight 07/08/2023 8: 59 PM SENIOR INFORMATION SECURITY CONSULTANT 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 Requested Prescriptions Pending Prescriptions Disp Refills hydrOXYzine (VISTARIL) 50 MG Capsule [Pharmacy Med Name: hydrOXYzine Pamoate 50 MG Oral Capsule] 90Capsule 0 Sig: TAKE 1 CAPSULE BY MOUTH EVERY 6 HOURS NEEDED FOR ANXIETY Not Delegated - Off Protocol Failed - 02/16/2023 9:24 AM Failed - This refill cannot be delegated Passed - Visit with relevant provider in past 12 months or upcoming 90 days Recent Visits Date Type Provider Dept 11/09/22 Office Visit Yusra Salazar MD [facility] 07/28/22 Office Visit Yusra Salazar MD [facility] 04/26/22 Office Visit Yusra Salazar MD [facility] 03/25/22 Office Visit Elle Marshall PAC [facility] Showing recent visits within past 365 days and meeting all other requirements Future Appointments No visits were found meeting these conditions. Showing future appointments within next 90 days and meeting all other requirements documented in this encounter Plan of Treatment Upcoming Encounters Date Type Department Care Team (Late st Contact Info) Description 05/30/2025 1:00 PM SENIOR INFORMATION SECURITY CONSULTANT Office Visit [facility] Oncology Services [address] [place] [address] Juan Felix MD [address] [place] [address] Discharge Disposition: Discharged to home or Selfcare documented as of this encounter Goals Goal Patient Goal Type Associated Problems Recent Progress Patient-Stated? Author Behavioral Health Behavioral Health On track(2021 4:08 PM CDT) Yes Yoly Zaroc LCSW Note: I just need to be able to cope with all this that is going on. Goal Reviewed with: patient today Readiness to change: Ready to change Department associated with goal: [facility] Steps to achieve [...] Ready to change Department associated with goal: [facility] Steps to achieve [...] documented in this encounter Additional Health Concerns Assessment Noted Time PHQ-9 Depression Total Score: 0 04/26/20 22 2:16 PM SENIOR INFORMATION SECURITY CONSULTANT documented as of this encounter Care Teams Insole And Heel Stiffener Relationship Specialty Start Date End Date Yusra Salazar MD PCP - General Family Medicine 06/21/21 08/09/23 [facility] PCP - General 08/10/23 09/28/23 Walt Gage DO [address] [place] [address] [place] [address] PCP - General Internal Medicine 09/29/23 Yusra Salazar MD Family Medicine 06/21/21 10/13/23 Landry Maria MD [address] [place] [address] Consulting Physician Radiation Oncology 06/26/19 Juan Felix MD [address] [place] [address] Consulting Physician Medical Oncology 06/26/19 Annika Hartmann MD [address] [place] [address] Consulting Physician General Surgery 06/26/19 Michelle Liu III, MD [address] [place] [address] Consulting Physician Urology 12/06/22 Yoan Sharma MD [address] [place] [address] Consulting Physician Neurology 07/26/23 Kareen Koenig APRN, ACCOUNT MANAGER EDUCATION [address] [place] [address] Nurse Practitioner Advanced Practice Nurse 10/14/22 documented as of this encounter
--- OUTSIDE RECORDS SUMMARY | 2025-04-29 15:38 | XMS_ITS | Encounter Summary ---
Author Organization [facility] Address [address] [place] [address] Phone Care Team Providers Care Retail Wireless Sales Consultant Name Role Phone Yusra Salazar MD Primary Care Provider [phone] Yusra Salazar MD Unavailable Landry Maria MD Unavailable Juan Felix MD Unavailable [phone] Annika Hartmann MD Unavailable [phone] Noe ALCARAZ MD, Michelle Unavailable [phone] Yoan Sharma MD Unavailable [phone] Provider, None Primary Care Provider UnavailKareen Humphreys APRN, DELIVERY AND INSTALLATION SUBCONTRACTOR Unavailable Walt Gage DO Primary Care Provider Reason for Visit * Reason Comments Medication Refill Encounter Details Date Type Department Care Team (Late st Contact Info) Description 08/14/2022 Refill [facility] [address] [place] [id number] [place] [address] [place] [address] Medication Refill Social History Tobacco Use Types [...] Sex Assigned at Female 07/08/2023 8:53 PM CLIENT SERVICE MANAGER Legal Sex Female 10:43 PM CDT Gender Identity Female 07/08/2023 8:53 PM CLIENT SERVICE MANAGER Sexual Orientation Straight 07/08/2023 8: 59 PM CLIENT SERVICE MANAGER 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 No / Unsure 08/08/2022 2:01 PM CLIENT SERVICE MANAGER documented as of this encounter Miscellaneous Notes * Telephone Encounter - Teresa Jordan RN - 08/16/2022 1:45 PM CLIENT SERVICE MANAGER Medication failed the protocol, provider to review and approve the medication order if appropriate. Requested Prescriptions Pending Prescriptions Disp Refills meclizine (ANTIVERT) 25 MG Tablet [Pharmacy Med Name: Meclizine HCl 25 MG Oral Tablet] 30 Tablet 0 Sig: TAKE 1 TABLET BY MOUTH THREE TIMES DAILY NEEDED FOR DIZZINESS Not Delegated - Off Protocol Failed - 08/14/2022 12:22 PM Failed - This refill cannot be delegated Passed - Visit with relevant provider in past 12 months or upcoming 90 days Recent Visits Date Type Provider Dept 07/28/22 Office Visit Yusra Salazar MD [facility] 04/26/22 Office Visit Yusra Salazar MD [facility] 03/25/22 Office Visit Elle Marshall PAC [facility] 02/05/22 Office Visit Sabine Ramirez APRN, DELIVERY AND INSTALLATION SUBCONTRACTOR [facility] Showing recent visits within past 365 days and meeting all other requirements Future Appointments Date Type Provider Dept 10/27/22 Appointment Yusra Salazar MD [facility] Showing future appointments within next 90 days and meeting all other requirements NT SERVICE MANAGER documented in this encounter Plan of Treatment Upcoming Encounters Date Type Department Care Team (Late st Contact Info) Description 05/30/2025 1:00 PM CLIENT SERVICE MANAGER Office Visit [facility] Oncology Services [address] [place] [address] Juan Felix MD [address] [place] [address] Discharge Disposition: Discharged to home or Selfcare [...] Ready to change Department associated with goal: [facility] Steps to achieve [...] Ready to change Department associated with goal: [facility] Steps to achieve [...] Influenza 08/08/2022 08/08/2022 08/15/2022 12:1 6 AM CLIENT SERVICE MANAGER Assessment Noted Time PHQ-9 Depression Total Score: 0 04/26/20 2:16 PM CLIENT SERVICE MANAGER documented as of this encounter Care Teams Retail Wireless Sales Consultant Relationship Specialty Start Date End Date Yusra Salazar MD PCP - General Family Medicine 06/21/21 08/09/23 Provider, [facility] PCP - General 08/10/23 09/28/23 Walt Gage DO [address] [place] [address] [address] [place], [place] [id number] PCP - General Internal Medicine 09/29/23 Yusra Salazar MD Family Medicine 06/21/21 10/13/23 Landry Maria MD [address] [place] [address] Consulting Physician Radiation Oncology 06/26/19 Juan Felix MD [address] [place] [address] Consulting Physician Medical Oncology 06/26/19 Annika Hartmann MD [address] [place] [address] Consulting Physician General Surgery 06/26/19 Michelle Liu III, MD [address] [place] [address] Consulting Physician Urology 12/06/22 Yoan Sharma MD [address] [place] [address] Consulting Physician Neurology 07/26/23 Kareen Koenig APRN, DELIVERY AND INSTALLATION SUBCONTRACTOR [address] [place] [address] Nurse Practitioner Advanced Practice Nurse 10/14/22 documented as of this encounter
--- OUTSIDE RECORDS SUMMARY | 2025-04-29 15:38 | XMS_ITS | Encounter Summary ---
Author Organization [facility] Address [address] [place] [address] Phone Care Team Providers Care Mixer Crane Operator Name Role Phone Landry Maria MD Unavailable Juan Felix MD Unavailable Annika Hartmann MD Unavailable Noe ALCARAZ MD, Courtney Unavailable Yoan Sharma MD Unavailable Kareen Koenig APRN, RED CROSS WORKER Unavailable Walt Gage DO Primary Care Provider Reason for Visit * Reason Comments Medication Refill Encounter Details Date Type Department Care Team (Late st Contact Info) Description 03/31/2024 Refill [facility] - [place] [address] [place] [address] Kareen Koenig APRN, RED CROSS WORKER [address] [place] [address] Medication Refill Social History Tobacco Use Types [...] Sex Assigned at Female 07/08/2023 8:53 PM BENEFITS DIRECTOR Legal Sex Female 10:43 PM CDT Gender Identity Female 07/08/2023 8:53 PM BENEFITS DIRECTOR Sexual Orientation Straight 07/08/2023 8: 59 PM BENEFITS DIRECTOR 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 documented in this encounter Plan of Treatment Upcoming Encounters Date Type Department Care Team (Late st Contact Info) Description 05/30/2025 1:00 PM BENEFITS DIRECTOR Office Visit [facility] Oncology Services [address] [place] [address] Juan Felix MD [address] [place] [address] Discharge Disposition: Discharged to home or Selfcare [...] Ready to change Department associated with goal: [facility] Steps [...] Ready to change Department associated with goal: [facility] Steps [...] Total Score: 0 04/26/20 22 2:16 PM BENEFITS DIRECTOR documented as of this encounter Care Teams Mixer Crane Operator Relationship Specialty Start Date End Date Walt Gage DO [facility] [facility] [address] [place], [place] [id number] PCP - General Internal Medicine 09/29/23 Landry Maria MD [address] [place] [address] Consulting Physician Radiation Oncology 06/26/19 Juan Felix MD [address] [place] [address] Consulting Physician Medical Oncology 06/26/19 Annika Hartmann MD [address] [place] [address] Consulting Physician General Surgery 06/26/19 Michelle Liu III, MD [address] [place] [address] Consulting Physician Urology 12/06/22 Yoan Sharma MD [address] [place] [address] Consulting Physician Neurology 07/26/23 Kareen Koenig APRN, RED CROSS WORKER [address] [place] [address] Nurse Practitioner Advanced Practice Nurse 10/14/22 documented as of this encounter
--- OUTSIDE RECORDS SUMMARY | 2025-04-29 15:38 | XMS_ITS | Encounter Summary ---
Author Organization [facility] Address [address] [place] [address] Phone Care Team Providers Care Commercial Account Officer Name Role Phone Yusra Salazar MD Primary Care Provider Yusra Salazar MD Unavailable Landry Maria MD Unavailable [phone] Juan Felix MD Unavailable [phone] Annika Hartmann MD Unavailable [phone] Noe ALCARAZ MD, Michelle Unavailable [phone] Yoan Sharma MD Unavailable [phone] Provider, None Primary Care Provider UnavailKareen Humphreys APRN, WRAP CHECKER Unavailable Walt Gage DO Primary Care Provider Reason for Visit * Reason Comments Medication Refill Encounter Details Date Type Department Care Team (Late st Contact Info) Description 09/21/2022 Refill [facility] #[address] [place] [address] Madelyn Kelly MD [address] [place] [address] Medication Refill Social History Tobacco Use Types [...] Sex Assigned at Female 07/08/2023 8:53 PM WAGE ANALYST Legal Sex Female 10:43 PM CDT Gender Identity Female 07/08/2023 8:53 PM WAGE ANALYST Sexual Orientation Straight 07/08/2023 8: 59 PM WAGE ANALYST 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 No / Unsure 08/30/2022 3:10 PM CDT documented as of this encounter Miscellaneous Notes * Telephone Encounter - Abigail Mukherjee RN - 09/23/2022 9:33 AM CDT Medication refilled and signed [facility] chronic medication standing order for pediatric and adult patients. documented in this encounter Plan of Treatment Upcoming Encounters Date Type Department Care Team (Late st Contact Info) Description 05/30/2025 1:00 PM WAGE ANALYST [facility] [address] [place] [address] Juan Felix MD [address] [place] [address] Discharge Disposition: Discharged to home or Selfcare [...] session for at least 4 months. Behavioral [facility] Behavioral Health On track(2021 4:08 PM CDT) [...] Total Score: 0 04/26/20 22 2:16 PM WAGE ANALYST documented as of this encounter Care Teams Commercial Account Officer Relationship Specialty Start Date End Date Yusra Salazar MD PCP - General Family Medicine 06/21/21 08/09/23 Provider, None [place] PCP - General 08/10/23 09/28/23 Walt Gage DO [address] [place] [address] [place] [address] PCP - General Internal Medicine 09/29/23 Yusra Salazar MD Family Medicine 06/21/21 10/13/23 Landry Maria MD [address] [place] [address] Consulting Physician Radiation Oncology 06/26/19 Juan Felix MD [address] [place] [address] Consulting Physician Medical Oncology 06/26/19 [place] [address] [place] [address] Consulting Physician General Surgery 06/26/19 Michelle Liu III, MD [address] [place] [address] Consulting Physician Urology 12/06/22 Yona Sharma MD [address] [place] [address] Consulting Physician Neurology 07/26/23 Kareen Koenig APRN, WRAP CHECKER [address] [place] [address] Nurse Practitioner Advanced Practice Nurse 10/14/22 documented as of this encounter
--- OUTSIDE RECORDS SUMMARY | 2025-04-29 15:38 | XMS_ITS | Encounter Summary ---
Author Organization [facility] Address [address] [place] [address] Phone Care Team Providers Care Security Shift Supervisor Name Role Phone Landry Maria MD Unavailable Juan Felix MD Unavailable Annkia Hartmann MD Unavailable Noe ALCARAZ MD, Courtney Unavailable Yoan Sharma MD Unavailable [phone] Kareen Koenig APRN, HEAD LOFT WORKER Unavailable Walt Gage DO Primary Care Provider Reason for Visit * Reason Comments Medication Refill Encounter Details Date Type Department Care Team (Late st Contact Info) Description 05/15/2024 Refill [facility] - Family Medicine - [place] [address] [place] [address] Donaldo Stephens APRN, HEAD LOFT WORKER [address] [address] Medication Refill Social History Tobacco Use Types [...] Sex Assigned at Female 07/08/2023 8:53 PM BUSINESS TECHNOLOGY ANALYST Legal Sex Female 10:43 PM CDT Gender Identity Female 07/08/2023 8:53 PM BUSINESS TECHNOLOGY ANALYST Sexual Orientation Straight 07/08/2023 8: 59 PM BUSINESS TECHNOLOGY ANALYST 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 Not on file documented as of this encounter Miscellaneous Notes * Telephone Encounter - Karis Johnston RN - 05/15/2024 2:53 PM CST PCP: Walt Gage DO NESS TECHNOLOGY ANALYST documented in this encounter Plan of Treatment Upcoming Encounters Date Type Department Care Team (Late st Contact Info) Description 05/30/2025 1:00 PM BUSINESS TECHNOLOGY ANALYST Office Visit [facility] Oncology Services [address] [place] [address] Juan Felix MD [address] [place] [address] Discharge Disposition: Discharged to home or Selfcare [...] Ready to change Department associated with goal: [facility] Steps to achieve [...] Ready to change Department associated with goal: [facility] Steps to achieve [...] Total Score: 0 04/26/20 22 2:16 PM BUSINESS TECHNOLOGY ANALYST documented as of this encounter Care Teams Security Shift Supervisor Relationship Specialty Start Date End Date Walt Gage DO [facility] [facility] [place] [address] PCP - General Internal Medicine 09/29/23 Landry Maria MD [address] [place] [address] Consulting Physician Radiation Oncology 06/26/19 Juan Felix MD [address] [place] [address] Consulting Physician Medical Oncology 06/26/19 Annika Hartmann MD [address] [place] [address] Consulting Physician General Surgery 06/26/19 Michelle Liu III, MD [address] [place] [address] Consulting Physician Urology 12/06/22 Yoan Sharma MD [address] [place] [address] Consulting Physician Neurology 07/26/23 Kareen Koenig APRN, HEAD LOFT WORKER [address] [place] [address] Nurse Practitioner Advanced Practice Nurse 10/14/22 documented as of this encounter
--- OUTSIDE RECORDS SUMMARY | 2025-04-29 15:38 | XMS_ITS | Encounter Summary ---
Author Organization [facility] Address [address] [place] [address] Phone Care Team Providers Care Meeting Facilitator Name Role Phone Landry Maria MD Unavailable [phone] Juan Felix MD Unavailable [phone] Annika Hartmann MD Unavailable Noe ALCARAZ MD, Courtney Unavailable Yoan Sharma MD Unavailable [phone] Kareen Koenig APRN, SENIOR SALES ASSOCIATE Unavailable Walt Gage DO Primary Care Provider Reason for Visit * Reason Comments Medication Refill Encounter Details Date Type Department Care Team (Late st Contact Info) Description 03/09/2025 Refill [facility] - G[facility]enterology - [place] [address] [place] [address] Kareen Koenig APRN, SENIOR SALES ASSOCIATE [address] [place] [address] Medication Refill Social History Tobacco Use Types [...] Sex Assigned at Female 07/08/2023 8:53 PM PHARMACEUTICAL SALES Legal Sex Female 10:43 PM CDT Gender Identity Female 07/08/2023 8:53 PM [employer]ARMACEUTICAL SALES Sexual Orientation Straight 07/08/2023 8: 59 PM PHARMACEUTICAL SALES 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 Author Behavioral Health Behavioral Health On track(2021 4:08 PM CDT) Yes Yoly Zarco, ARCHITECT MANAGER Note: I just need to be able to cope with all this that is going on. Goal Reviewed with: patient today Readiness to change: Ready to change Department associated with goal: [facility] Steps to achieve [...] Health On track(2021 4:08 PM CDT) Yoly Roe, ARCHITECT MANAGER Note: Dodie will manage depression and anxiety more effectively to have reduction of anxiety and depression symptoms. Goal Reviewed with: patient today Readiness to change: Ready to change Department associated with goal: [facility] Steps to achieve [...] Total Score: 0 04/26/20 22 2:16 PM PHARMACEUTICAL SALES documented as of this encounter Care Teams Meeting Facilitator Relationship Specialty Start Date End Date Walt Gage DO [facility] [place] [address] PCP - General Internal Medicine 09/29/23 Landry Maria MD [address] [place] [address] Consulting Physician Radiation Oncology 06/26/19 Juan Felix MD [address] [place] [address] Consulting Physician Medical Oncology 06/26/19 Annika Hartmann MD [address] [place] [address] Consulting Physician General Surgery 06/26/19 Michelle Liu III, MD [address] [place] [address] Consulting Physician Urology 12/06/22 Yoan Sharma MD [address] [place] [address] Consulting Physician Neurology 07/26/23 Kareen Koenig APRN, SENIOR SALES ASSOCIATE [address] [place] [address] Nurse Practitioner Advanced Practice Nurse 10/14/22 documented as of this encounter
--- OUTSIDE RECORDS SUMMARY | 2025-04-29 15:38 | XMS_ITS | Clinical Summary ---
[facility] Address [address] [place] [address] Care Team Providers Care Commercial Lines Sales Executive Name Role Phone Walt Gage DO Primary Care Provider [phone] Allergies Active Allergy Reactions Criticality Noted Date Comments Nsaids (Non-Steroidal Anti-Inflammatory Drug) Other (See comments) Low 08/27/2021 BLEEDING, HAD BLEEDING DUODENAL ULCER 2019 Medications cholecalciferol (VITAMIN D-3) 50,000 unit tablet Take 1 tablet (50,000 Units total) by mouth once a week 7 Active meloxicam (MOBIC) 15 mg tablet Take 15 mg by mouth daily. Active SUMAtriptan (IMITREX) 100 mg tabletIndicatio ns:Migraine Take 1 tablet (100 mg total) by mouth once as needed for migraine (may repeat does in 2 hours if headache recurs) Active dicyclomine (BENTYL) 20 mg tabletIndicatio ns:Irritable Bowel Syndrome Take 1 tablet (20 mg total) by mouth every 6 (six) hours Active fluticasone (FLONASE) 50 mcg/actuation nasal spray Administer 1 spray into each nostril 2 (two) times a day Active gabapentin (NEURONTIN) 600 mg tablet Take 1 tablet (600 mg total) by mouth 3 (three) times a day Active hydrOXYzine (VISTARIL) 50 mg capsule Take 1 capsule (50 mg total) by mouth 3 (three) times a day as needed for itching Active omeprazole (PriLOSEC) 20 mg capsule Take 20 mg by mouth daily. Active ondansetron (ZOFRAN) 4 mg tablet Take 1 tablet (4 mg total) by mouth every 8 (eight) hours as needed for nausea or vomiting Active sertraline (ZOLOFT) 100 mg tablet Take 200 mg by mouth daily. Active traMADol (ULTRAM) 50 mg tablet Take 50 mg by mouth every 6 (six) hours. Active busPIRone (BUSPAR) 5 mg tablet Take 1 tablet (5 mg total) by mouth 3 (three) times a day 3 Active etanercept (ENBREL) 50 mg/mL (1 mL) pen injector Inject 1 mL (50 mg total) under the skin once a week 3 Active meclizine (ANTIVERT) 25 mg tablet TAKE 1 TABLET BY MOUTH THREE TIMES DAILY NEEDED FOR DIZZINESS [address] (PROTONIX) 40 mg EC tablet Take 1 tablet (40 mg total) by mouth daily 2 Active rOPINIRole (REQUIP) 0.25 mg tablet Take 1 tablet (0.25 mg total) by mouth daily Active tamoxifen (NOLVADEX) 20 mg tablet Take 1 tablet (20 mg total) by mouth daily 0 Active tiZANidine (ZANAFLEX) 4 mg tablet Take 1 tablet (4 mg total) by mouth 3 (three) times a day 3 Active venlafaxine XR (EFFEXOR-XR) 150 mg 24 hr capsule Take 1 capsule (150 mg total) by mouth daily 3 Active venlafaxine XR (EFFEXOR-XR) 75 mg 24 hr capsule Take 1 capsule (75 mg total) by mouth daily 3 Active clopidogreL (PLAVIX) 75 mg tablet Take 1 tablet (75 mg total) by mouth daily 30 tablet 11 3 Active clobetasoL (TEMOVATE) 0.05 % external solutionIndicat ions:Dermatosis of the Scalp Apply topically 2 (two) times a day Apply to scalp twice a day as needed 50 mL 11 3 Active mupirocin (BACTROBAN) 2 % ointmentIndicat ions:Prurigo nodularis APPLY TOPICALLY TO AFFECTED AREA ON ARM THREE TIMES DAILY 22 g 4 Active metoprolol XL (TOPROL-XL) 100 mg 24 hr tablet TAKE ONE TABLET (100 MG TOTAL) BY MOUTH DAILY AT 9 AM 60 tablet 11 5 Active dicyclomine (BENTYL) 10 mg capsule Take 1 capsule (10 mg total) by mouth 4 (four) times a day before meals and nightly Active metoclopramide (REGLAN) 5 mg tablet Take 1 tablet (5 mg total) by mouth 4 Active nortriptyline (PAMELOR) 10 mg capsule Take 1 capsule (10 mg total) by mouth 2 (two) times a day Active allopurinoL (ZYLOPRIM) 100 mg tablet Take 1 tablet (100 mg total) by mouth daily Active hydroxychloroqu ine (PLAQUENIL) 200 mg tablet Take 1 tablet (200 mg total) by mouth 2 (two) times a day Active lidocaine (XYLOCAINE) 5 % ointment Apply topically daily Active amLODIPine (NORVASC) 10 mg tablet Take 1 tablet (10 mg total) by mouth daily 30 tablet 11 5 08/23/19 26 Active Active Problems Problem Noted Date Diagnosed Date SOB (shortness of breath) 12/23/2022 Chest discomfort 12/23/2022 Palpitations 12/23/2022 Chronic bilateral low back pain without sciatica 08/27/2021 Lumbar radiculopathy 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/2021 manager intermediate current use of anticoagulant 2 Insomnia secondary to chronic pain 08/27/2021 Fibromyalgia 08/27/2021 Resolved Problems Problem Noted Date Diagnosed Date Resolved Date Acute appendicitis with localized peritonitis 12/30/19 17 12/29/2016 Surgical History Surgery Date Site/Laterality Comments APPENDECTOMY 12/17/2016 Lap appy SECTION 1995, 1998 CHOLECYSTECTOMY 06/20/1984 - 06/19/1985 TUBAL LIGATION TONSILLECTOMY Medical History Medical History Date Comments Arthritis Depression Diverticulitis, colon Fibromyalgia, primary Hiatal hernia Hypertension Migraine PCOS (polycystic ovarian syndrome) Family History Medical History Relation Name Comments Cancer Father Skin cancer Father Cancer Mother Lymphoma Mother Cancer Mother's Brother Pancreatic cancer Mother's Brother Stroke Paternal Grandmother Relation Name Status Comments Father Mother Mother's Brother Paternal Grandmother Social History Tobacco Use Types Packs/Day Years Used Date Smoking Tobacco: Never Alcohol Use Standard Drinks/Week Comments No 0 (1 standard drink = 0.6 oz pur e alcohol) PHQ-2 Answer Date Recorded PHQ-2 Total Score (If total score is 3 or more points, staff should administer the PHQ-9) 6 08/27/2021 Comments Unknown Sex and Gender Information Value Date Recorded Sex Assigned at Not on file Legal Sex Female 7:20 PM [facility] Gender Identity Female 05/23/2018 3:52 PM [facility] Sexual Orientation Choose not to disclose 2024 3:34 AM [facility] Last Filed Vital Signs Vital Sign Reading Time Taken Comments Blood Pressure 150/103 08/22/2024 2:35 PM [facility] Pulse 89 08/22/2024 2:35 PM [facility] Temperature - - Respiratory Rate 18 12/01/2022 12:58 PM CDT Oxygen Saturation 95% 08/27/2021 1:44 PM [facility] Inhaled Oxygen Concentration - - Weight 110.7 kg (244 lb) 08/22/2024 2:35 PM [facility] Height 170.2 cm (5' 7) 08/22/2024 2:35 PM [facility] Body Mass Index 38.22 08/22/2024 2:35 PM [facility] Plan of Treatment Health Maintenance Due Date Last Done Comments Cervical Cancer Screening 1967 Colon Cancer Screening-Colonoscopy 1967 Hepatitis C Screening 1967 DTaP/Tdap/Td Vaccine (1 - Tdap) 12/27/1978 Hepatitis B Screening 12/27/1985 Regular Well Visit/Exam 18-64 12/27/1985 Pneumococcal vaccine <65 (1 of 2 - PCV) 12/27/1986 Zoster Vaccine (1 of 2) 12/27/1986 Depression Screening 08/27/2022 08/27/2021, 08/28/19 22 Influenza Vaccine (#1) 2025 9, 06/01/2016, 03/13/2013 Breast Cancer Screening-Mammogram 03/22/2025 03/22/2024, 03/22/2024, 03/24/2023, Additional history exists Procedures Procedure Name Priority Date/Time Associated Diagnosis Comments DIGITAL MAMMOGRAPHY Routine 03/23/2013 1 0:21 AM CDT from Last 3 Months or Most Recently Relevant to Health Maintenance Results * DIGITAL MAMMOGRAPHY (03/23/2013 10:21 AM CDT) Anatomical Region Laterality Modality Breast Mammography 03/23/2013 10:2 1 AM CDT Narrative 03/23/2013 4:20 PM CDT Vrl Screening Mamm Bi Acc#: [id number] Performed by: yi DATE OF EXAM: Mar 23 2013 CLINICAL HISTORY: Routine screening. RESULT: Two views of each breast correlated to the studies dating back through 04/01/08 demonstrate a moderately dense fibroglandular pattern bilaterally. No suspicious mass or calcification is seen to suggest mammographic evidence of malignancy. Digital technology was employed plus computer-aided detection software (R2) was utilized in interpretation of these images. This facility utilizes a reminder system to notify patients of yearly mammograms. IMPRESSION: NO DEFINITIVE MAMMOGRAPHIC EVIDENCE OF MALIGNANCY. ANNUAL FOLLOW UP RECOMMENDED. BI-RADS CATEGORY 1: NEGATIVE EXAM. Interpreting Physician: SOSA OLSEN M.D. Read on: Mar 23 2013 10:24A Transcribed by: RADHA On: Mar 23 2013 2:21P Approved Electronically by: SOSA OLSEN M.D. on: Mar 23 2013 4:20P Ordering DR: MANUELA KWAN Attending : MANUELA KWAN Procedure Note Provider, MD Dagoberto - 10/14/2016 Vrl Screening Mamm Bi Acc#: [id number] Performed by: yi DATE OF EXAM: Mar 23 2013 CLINICAL HISTORY: Routine screening. RESULT: Two views of each breast correlated to the studies dating back popiqie75/13/08 demonstrate a moderately dense fibroglandular patternbilaterally. No suspicious mass or calcification is seen to suggestmammographic evidence of malignancy. Digital technology was employed pluscomputer-aided detection software (R2) was utilized in interpretation ofthese images. This facility utilizes a reminder system to notify patientsof yearly mammograms. IMPRESSION: NO DEFINITIVE MAMMOGRAPHIC EVIDENCE OF MALIGNANCY. ANNUAL FOLLOW UPRECOMMENDED. BI-RADS CATEGORY 1: NEGATIVE EXAM. Interpreting Physician: SOSA OLSEN M.D. Read on: Mar 23 2013 10:24A Transcribed by: RADHA On: Mar 23 2013 2:21P Approved Electronically by: SOSA OLSEN M.D. on: Mar 23 2013 4:20P Ordering DR: MANUELA KWAN Attending DR: MANUELA KWAN us Historical Provider MD [facility] Heidi l Result from Last 3 Months or Most Recently Relevant to Health Maintenance Insurance [facility] MEDICARE [facility] [employer] MEDICARE PPO Care Teams Commercial Lines Sales Executive Relationship Specialty Start Date End Date Walt Gage DO PCP - General Internal Medicine 08/29/24
--- OUTSIDE RECORDS SUMMARY | 2025-04-29 15:38 | XMS_ITS | Encounter Summary ---
Author Organization [facility] Address [address] [place] [address] Phone Care Team Providers Care Community Development Officer Name Role Phone Yusra Salazar MD Primary Care Provider [phone] Yusra Salazar MD Unavailable [phone] Landry Maria MD Unavailable [phone] Juan Felix MD Unavailable [phone] Annika Hartmann MD Unavailable [phone] Noe ALCARAZ MD, Michelle Unavailable [phone] Yoan Sharma MD Unavailable [phone] Provider, None Primary Care Provider UnavailKareen Humphreys APRN, CAREER DEVELOPMENT COUNSELOR Unavailable aWlt G[place] DO Primary Care Provider Reason for Referral * Consult, Test & Initiate Treatment (Routine) - Closed Specialty Diagnoses / Procedures Referred By Contpavithra t Referred To Contact Diagnoses Yusra Grimm MD Phone: tel: fax: [facility] [address] [place] [address] [address] [place] [address] Phone: tel: fax: Referral ID Status Reason Start Date Expiration Date Visits Re quested Visits Authorized [id number] Closed 08/04/2022 1 1 Scheduling Instructions Rula is being referred to dermatology or other specialist in patient's insurance network for R21 (ICD-10-CM) - 782.1 (ICD-9-CM) - Rash. See below for Rula's current medications, allergies and problem list. CURRENT MEDS: Current Outpatient Medications: Acetaminophen (TYLENOL EXTRA STRENGTH PO), Take by mouth., Disp: , Rfl: Azelastine HCl 137 MCG/SPRAY Solution, Use 1 spray(s) in each nostril once daily, Disp: 30 mL, Rfl: 2 busPIRone (BUSPAR) 5 MG Tablet, Take 1 Tablet by mouth 3 times daily., Disp: 270 Tablet, Rfl: 0 clopidogrel (PLAVIX) 75 MG Tablet, , Disp: , Rfl: dicyclomine (BENTYL) 20 MG Tablet, Take 1 Tablet by mouth 2 times daily., Disp: 120 Tablet, Rfl: 2 fluticasone (FLONASE) 50 MCG/ACT Suspension, 1 [place] by Nasal route daily. Use in each nostril as directed., Disp: 16 g, Rfl: 2 gabapentin (NEURONTIN) 800 MG Tablet, Take 1 Tablet by mouth 3 times daily., Disp: 90 Tablet, Rfl: 0 hydrOXYzine (VISTARIL) 50 MG Capsule, Take 1 Capsule by mouth every 6 hours as needed for Anxiety., Disp: 90 Capsule, Rfl: 0 lidocaine (XYLOCAINE) 5 % Ointment, APPLY OINTMENT EXTERNALLY THREE TIMES DAILY TO AREA ON CHEST WALL FOR PAIN., Disp: 36 g, Rfl: 1 meclizine (ANTIVERT) 25 MG Tablet, Take 1 Tablet by mouth 3 times daily as needed for Dizziness., Disp: 30 Tablet, Rfl: 0 metoprolol Succinate (TOPROL-XL) 100 MG TABLET SR 24 HR, Take 1 Tablet by mouth daily., Disp: 30 Tablet, Rfl: 0 ondansetron (ZOFRAN-ODT) 4 MG TABLET DISPERSIBLE, Take 1 Tablet by mouth every 8 hours as needed for Nausea - 1st line., Disp: 60 Tablet, Rfl: 0 pantoprazole (PROTONIX) 40 MG Tablet Delayed Response, TAKE 1 TABLET BY MOUTH ONCE DAILY 30 MINUTES BEFORE MEAL WITH PROTEIN, Disp: 90 Tablet, Rfl: 0 rOPINIRole (REQUIP) 1 MG Tablet, Take 1 tablet by mouth nightly, Disp: 90 Tablet, Rfl: 0 SUMAtriptan (IMITREX) 100 MG Tablet, Take 1 Tablet by mouth daily as needed for Migraine. May repeat after 2hrs not to exceed 2 tabs in 24hr period., Disp: 9 Tablet, Rfl: 2 tamoxifen citrate 20 MG Tablet, Take 1 Tablet by mouth daily, Disp: 90 Tablet, Rfl: 3 tiZANidine (ZANAFLEX) 4 MG Tablet, Take 1 Tablet by mouth 3 times daily., Disp: 90 Tablet, Rfl: 0 venlafaxine (EFFEXOR-XR) 150 MG CAPSULE SR 24 HR, Take 1 Capsule by mouth daily., Disp: 90 Capsule, Rfl: 1 No current facility-administered medications for this visit. ALLERGIES: -- Nsaids -- Other (see Comments) -- PATIENT STATES DR MOLINA DOES NOT WANT HER TO TAKE PROBLEM LIST: Patient Active Problem List: Fibromyalgia Obesity HTN (hypertension) Malignant neoplasm of upper-outer quadrant of right breast in female, estrogen receptor positive (HCC) Premenopausal patient History of therapeutic radiation Long-term current use of tamoxifen Major depressive disorder, recurrent episode, moderate with anxious distress (HCC) Lymphedema of breast ETING TRAFFIC COORDINATOR Reason for Visit * Reason Onset Date Comments Referral 08/03/2022 Encounter Details Date Type Department Care Team (Late st Contact Info) Description 08/03/2022 Telephone [facility] Referral Management Services [address] [place] [id number] [place] [address] [place] [address] Referral Social History Tobacco Use Types Packs/Day [...] Sex Assigned at Female 07/08/2023 8:53 PM MARKETING TRAFFIC COORDINATOR Legal Sex Female 10:43 PM CDT Gender Identity Female 07/08/2023 8:53 PM MARKETING TRAFFIC COORDINATOR Sexual Orientation Straight 07/08/2023 8: 59 PM MARKETING TRAFFIC COORDINATOR 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 No / Unsure 07/28/2022 1:44 PM MARKETING TRAFFIC COORDINATOR documented as of this encounter Miscellaneous Notes * Telephone Encounter - Chika Dunbar RN - 08/03/2022 6:29 PM CST Pended new referral ETING TRAFFIC COORDINATOR * Telephone Encounter - Florencia Lai - 08/03/2022 12:28 PM CST SITUATION: External office requesting provider review Dermatology Referral. BACKGROUND: Referral unable to be processed. Unfortunatley, although the Dx was updated, it won't update in theoriginal referral. Can a new referral be placed please and we will work it and send to external office ASSESSMENT: Request for provider review due to the following reason(s): Referral order inaccurate. RECOMMENDATION: Based on the above information the provider has the following option(s): Cancel existing referral. and Place new referral order. [facility] - Centralized Referral Management 08/03/2022, 12:34 PM MARKETING TRAFFIC COORDINATOR ETING TRAFFIC COORDINATOR documented in this encounter Plan of Treatment Upcoming Encounters Date Type Department Care Team (Late st Contact Info) Description 05/30/2025 1:00 PM MARKETING TRAFFIC COORDINATOR Office Visit [facility] Oncology Services [address] [place] [address] Juan Felix MD [address] [place] [address] Discharge Disposition: Discharged to home or Selfcare Scheduled Referrals Name Type Priority Associated Diagnoses Order Schedule EXTERNAL DERMATOLOGY REFERRAL Outpatient Referral Routine Rash Expected: 08/04/2022, Expires: 08/03/2023 documented as of this encounter Goals Goal Patient Goal Type Associated Problems Recent Progress Patient-Stated? Author [facility] Behavioral Health On track(2021 4:08 PM CDT) Yes Yoly Zraco LCSW Note: I just need to be [...] as of this encounter Visit Diagnoses Diagnosis Rash- Primary Rash and other nonspecific skin eruption documented in this encounter Additional Health Concerns Infection Onset Date Last Indicated Resolved Time Respiratory Rule Out - RPA 08/08/2022 08/08/2022 0 08/08/2022 3:34 PM MARKETING TRAFFIC COORDINATOR Influenza 08/08/2022 08/08/2022 08/15/2022 12:1 6 AM MARKETING TRAFFIC COORDINATOR Assessment Noted Time PHQ-9 Depression Total Score: 0 04/26/20 22 2:16 PM MARKETING TRAFFIC COORDINATOR documented as of this encounter Care Teams Community Development Officer Relationship Specialty Start Date End Date Yusra Salazar MD PCP - General Family Medicine 06/21/21 08/09/23 Provider, None MA PCP - General 08/10/23 09/28/23 Walt G[place] DO [facility] [place], [place] [id number] PCP - General Internal Medicine 09/29/23 Yusra Salazar MD Family Medicine 06/21/21 10/13/23 Landry Maria MD [address] [place] [address] Consulting Physician Radiation Oncology 06/26/19 Juan Felix MD [address] [place] [address] Consulting Physician Medical Oncology 06/26/19 Annika Hartmann MD [address] [place] [address] Consulting Physician General Surgery 06/26/19 Michelle Liu III, MD [address] [place] [address] Consulting Physician Urology 12/06/22 Yoan Sharma MD [address] [place] [address] Consulting Physician Neurology 07/26/23 Kareen Koenig APRN, CAREER DEVELOPMENT COUNSELOR [address] [place] [address] Nurse Practitioner Advanced Practice Nurse 10/14/22 documented as of this encounter
--- OUTSIDE RECORDS SUMMARY | 2025-04-29 15:38 | XMS_ITS | Encounter Summary ---
Author Organization [facility] Address [address] [place] [address] Phone Care Team Providers Care Extrusion Operator Name Role Phone Yusra Salazar MD Primary Care Provider Yusra Salazar MD Unavailable [phone] Landry Maria MD Unavailable Juan Felix MD Unavailable [phone] Annika Hartmann MD Unavailable [phone] Noe ALCARAZ MD, Michelle Unavailable [phone] Yoan Sharma MD Unavailable [phone] Provider, None Primary Care Provider UnavailKareen Humphreys APRN, STATISTICAL PROGRAMMER Unavailable Walt Gage DO Primary Care Provider Reason for Visit * Reason Comments Medication Refill Encounter Details Date Type Department Care Team (Late st Contact Info) Description 03/15/2023 Refill [facility] [address] [place] [id number] [place] [address] [place] [address] Medication Refill Social History Tobacco Use Types [...] Sex Assigned at Female 07/08/2023 8:53 PM ACADEMIC ASSISTANT Legal Sex Female 10:43 PM CDT Gender Identity Female 07/08/2023 8:53 PM ACADEMIC ASSISTANT Sexual Orientation Straight 07/08/2023 8: 59 PM ACADEMIC ASSISTANT 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 Requested Prescriptions Pending Prescriptions Disp Refills hydrOXYzine (VISTARIL) 50 MG Capsule [Pharmacy Med Name: hydrOXYzine Pamoate 50 MG Oral Capsule] 90Capsule 0 Sig: TAKE 1 CAPSULE BY MOUTH EVERY 6 HOURS NEEDED FOR ANXIETY Not Delegated - Off Protocol Failed - 03/15/2023 12:53 PM Failed - This refill cannot be delegated Passed - Visit with relevant provider in past 12 months or upcoming 90 days Recent Visits Date Type Provider Dept 11/09/22 Office Visit Yusra Salazar MD [facility] 07/28/22 Office Visit Yusra Salazar MD [facility] 04/26/22 Office Visit Yusra Salazar MD [facility] 03/25/22 Office Visit Elle Marshall PAC [facility] Showing recent visits within past 365 days and meeting all other requirements Future Appointments No visits were found meeting these conditions. Showing future appointments within next 90 days and meeting all other requirements documented in this encounter Plan of Treatment Upcoming Encounters Date Type Department Care Team (Late st Contact Info) Description 05/30/2025 1:00 PM ACADEMIC ASSISTANT Office Visit [facility] Oncology Services [address] [place] [address] Juan Felix MD [address] [place] [address] Discharge Disposition: Discharged to home or Selfcare [...] to change Department associated with goal: [facility] Steps to achieve [...] to change Department associated with goal: [facility] Steps to achieve [...] Total Score: 0 04/26/20 22 2:16 PM ACADEMIC ASSISTANT documented as of this encounter Care Teams Extrusion Operator Relationship Specialty Start Date End Date Yusra Salazar MD PCP - General Family Medicine 06/21/21 08/09/23 Provider, None [place] PCP - General 08/10/23 09/28/23 Walt Gage DO [facility] [place] [address] PCP - General Internal Medicine 09/29/23 Yusra Salazar MD Family Medicine 06/21/21 10/13/23 Landry Maria MD [address] [place] [address] Consulting Physician Radiation Oncology 06/26/19 Juan Felix MD [address] [place] [address] Consulting Physician Medical Oncology 06/26/19 Annika Hartmann MD [address] [place] [address] Consulting Physician General Surgery 06/26/19 Michelle Liu III, MD [address] [place] [address] Consulting Physician Urology 12/06/22 Yoan Sharma MD [address] [place] [address] Consulting Physician Neurology 07/26/23 Kareen Koenig APRN, STATISTICAL PROGRAMMER [address] [place] [address] Nurse Practitioner Advanced Practice Nurse 10/14/22 documented as of this encounter
--- OUTSIDE RECORDS SUMMARY | 2025-04-29 15:38 | XMS_ITS | Encounter Summary ---
Author Organization [facility] Address [address] [place] [address] Phone Care Team Providers Care Shear Operator Helper Name Role Phone Landry Maria MD Unavailable [phone] Juan Felix MD Unavailable Annika Hartmann MD Unavailable Noe ALCARAZ MD, Courtney Unavailable Yoan Sharma MD Unavailable [phone] Kareen Koenig APRN, SHIP WORKER Unavailable Walt Gage DO Primary Care Provider Reason for Visit * Reason Comments Medication Refill Encounter Details Date Type Department Care Team (Late st Contact Info) Description 03/05/2024 Refill [facility] [place] [address] [place] [address] Donaldo Stephens APRN, SHIP WORKER [address] [address] Medication Refill Social History Tobacco Use Types [...] Sex Assigned at Female 07/08/2023 8:53 PM DENTAL APPLIANCE MECHANIC Legal Sex Female 10:43 PM CDT Gender Identity Female 07/08/2023 8:53 PM DENTAL APPLIANCE MECHANIC Sexual Orientation Straight 07/08/2023 8: 59 PM DENTAL APPLIANCE MECHANIC 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 on file Not on file documented as of this encounter Miscellaneous Notes * Telephone Encounter - Karis Johnston RN - 03/05/2024 2:40 PM CDT PCP Walt Charlton DO documented in this encounter Plan of Treatment Upcoming Encounters Date Type Department Care Team (Late st Contact Info) Description 05/30/2025 1:00 PM DENTAL APPLIANCE MECHANIC Office Visit [facility] Oncology Services [address] [place] [phone] Juan Felix MD [address] [place] [address] Discharge Disposition: Discharged to home or Selfcare [...] to change Department associated with goal: [facility] Steps to achieve [...] to change Department associated with goal: [facility] Steps to achieve [...] Total Score: 0 04/26/20 22 2:16 PM DENTAL APPLIANCE MECHANIC documented as of this encounter Care Teams Shear Operator Helper Relationship Specialty Start Date End Date Walt Gage DO [facility] [place], [place] [id number] PCP - General Internal Medicine 09/29/23 Landry Maria MD [address] [place] [address] Consulting Physician Radiation Oncology 06/26/19 Juan Felix MD [address] [place] [address] Consulting Physician Medical Oncology 06/26/19 Annika Hartmann MD [address] [place] [address] Consulting Physician General Surgery 06/26/19 Michelle Liu III, MD [address] [place] [address] Consulting Physician Urology 12/06/22 Yoan Sharma MD [address] [place] [address] Consulting Physician Neurology 07/26/23 Kareen Koenig APRN, SHIP WORKER [address] [place] [address] Nurse Practitioner Advanced Practice Nurse 10/14/22 documented as of this encounter
--- OUTSIDE RECORDS SUMMARY | 2025-04-29 15:38 | XMS_ITS | Encounter Summary ---
Author Organization [facility] Address [address] [place] [address] Phone Care Team Providers Care Rodent Exterminator Name Role Phone Yusra Salazar MD Primary Care Provider Yusra Salazar MD Unavailable Landry Maria MD Unavailable Juan Felix MD Unavailable [phone] Annika Hartmann MD Unavailable [phone] Noe ALCARAZ MD, Michelle Unavailable [phone] Yoan Sharma MD Unavailable [phone] Provider, None Primary Care Provider UnavailKareen Humphreys APRN, DISTRICT AGENT Unavailable Walt Gage DO Primary Care Provider Reason for Visit * Reason Comments Medication Refill Encounter Details Date Type Department Care Team (Late st Contact Info) Description 09/07/2022 Refill [facility] [address] [place] [id number] [place] [address] [place] [address] Medication Refill Social History Tobacco Use Types [...] Sex Assigned at Female 07/08/2023 8:53 PM TELEPHONE [place] Legal Sex Female 10:43 PM CDT Gender Identity Female 07/08/2023 8:53 PM TELEPHONE [place] Sexual Orientation Straight 07/08/2023 8: 59 PM TELEPHONE [place] 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 No / Unsure 08/30/2022 3:10 PM CDT documented as of this encounter Miscellaneous Notes * Telephone Encounter - Karis Johnston RN - 09/07/2022 1:35 PM CDT Per nursing clinical judgement, provider to review and approve the medication(s) order(s) if appropriate. Requested Prescriptions Pending Prescriptions Disp Refills metoprolol Succinate (TOPROL-XL) 100 MG TABLET SR 24 HR [Pharmacy Med Name: Metoprolol Succinate ER100 MG Oral Tablet Extended Release 24 Hour] 30 Tablet 2 Sig: Take 1 tablet by mouth once daily Beta-Blockers Protocol Passed - 09/07/2022 1:10 PM Passed - BP on record in the past year Clinician-entered: BP Readings from Last 3 Encounters: 08/08/22 130/84 07/28/22 142/86 04/27/22 154/86 Patient-entered: No data recorded Passed - Visit with relevant provider in past 12 months or upcoming 90 days Recent Visits Date Type Provider Dept 07/28/22 Office Visit [facility] MD [facility] 04/26/22 Office Visit Yusra Salazar MD [facility] 03/25/22 Office Visit Elle Marshall, TRIS[facility] 02/05/22 Office Visit Sabine Ramirez APRN, DISTRICT AGENT [facility] Showing recent visits within past 365 days and meeting all other requirements Future Appointments Date Type Provider Dept 10/27/22 Appointment Yusra Salazar MD [facility] Showing future appointments within next 90 days and meeting all other requirements meclizine (ANTIVERT) 25 MG Tablet [Pharmacy Med Name: Meclizine HCl 25 MG Oral Tablet] 30 Tablet 0 Sig: TAKE 1 TABLET BY MOUTH THREE TIMES DAILY NEEDED FOR DIZZINESS There is no refill protocol information for this order documented in this encounter Plan of Treatment Upcoming Encounters Date Type Department Care Team (Late st Contact Info) Description 05/30/2025 1:00 PM TELEPHONE [place] Office Visit [facility] Oncology Services [address] [place] [address] Juan Felix MD [address] [place] [address] Discharge Disposition: Discharged to home or Selfcare documented as of this encounter Goals Goal Patient Goal Type Associated Problems Recent Progress Patient-Stated? Author Behavioral Health Behavioral Health On track(2021 4:08 PM CDT) Yes Yoly Zarco, BENCH CARPENTER Note: I just need to be able to cope with all this that is going on. Goal Reviewed with: patient today Readiness to change: Ready to change Department associated with goal: [facility] Steps to achieve [...] Ready to change Department associated with goal: [facility] Steps to achieve [...] Total Score: 0 04/26/20 22 2:16 PM TELEPHONE LINEMAN documented as of this encounter Care Teams Rodent Exterminator Relationship Specialty Start Date End Date Yusra Salazar MD PCP - General Family Medicine 06/21/21 08/09/23 Provider, [facility] PCP - General 08/10/23 09/28/23 Walt Gage DO [address] [place] [address] [place] [address] PCP - General Internal Medicine 09/29/23 Yusra Salazar MD Family Medicine 06/21/21 10/13/23 Landry Maria MD [address] [place] [address] Consulting Physician Radiation Oncology 06/26/19 Juan Felix MD [address] [place] [address] Consulting Physician Medical Oncology 06/26/19 Annika Hartmann MD [address] [place] [address] Consulting Physician General Surgery 06/26/19 Michelle Liu III, MD [address] [place] [address] Consulting Physician Urology 12/06/22 Yoan Sharma MD [address] [place] [address] Consulting Physician Neurology 07/26/23 Kareen Koenig APRN, DISTRICT AGENT [address] [place] [address] Nurse Practitioner Advanced Practice Nurse 10/14/22 documented as of this encounter
--- OUTSIDE RECORDS SUMMARY | 2025-04-29 15:38 | XMS_ITS | Encounter Summary ---
Author Organization [facility] Address [address] [place] [address] Phone Care Team Providers Care Piccolo Mechanic Name Role Phone Yusra Salazar MD Primary Care Provider Yusra Salazar MD Unavailable Landry Maria MD Unavailable Juan Felix MD Unavailable [phone] Annika Hartmann MD Unavailable [phone] Noe ALCARAZ MD, Courtney Unavailable Yoan Sharma MD Unavailable [phone] Provider, None Primary Care Provider UnavailKareen Humphreys APRN, BREAKING MACHINE OPERATOR Unavailable Walt Gage DO Primary Care Provider Reason for Visit * Reason Comments Medication Refill Encounter Details Date Type Department Care Team (Late st Contact Info) Description 09/29/2022 Refill [facility] [address] [place] [phone] Donaldo Stephens APRN, BREAKING MACHINE OPERATOR #[address] [address] Medication Refill Social History Tobacco Use Types [...] Sex Assigned at Female 07/08/2023 8:53 PM CHIPPER MACHINE OPERATOR Legal Sex Female 10:43 PM CDT Gender Identity Female 07/08/2023 8:53 PM CHIPPER MACHINE OPERATOR Sexual Orientation Straight 07/08/2023 8: 59 PM CHIPPER MACHINE OPERATOR 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 No / Unsure 08/30/2022 3:10 PM CDT documented as of this encounter Miscellaneous Notes * Telephone Encounter - Yaima Bruno RN - 09/30/2022 1:48 PM CDT Medication failed the protocol, provider to review and approve the medication order if appropriate. Requested Prescriptions Pending Prescriptions Disp Refills meclizine (ANTIVERT) 25 MG Tablet [Pharmacy Med Name: Meclizine HCl 25 MG Oral Tablet] 30 Tablet 0 Sig: TAKE 1 TABLET BY MOUTH THREE TIMES DAILY NEEDED FOR DIZZINESS Not Delegated - Off Protocol Failed - 09/29/2022 2:26 PM Failed - This refill cannot be delegated Passed - Visit with relevant provider in past 12 months or upcoming 90 days Recent Visits Date Type Provider Dept 07/28/22 Office Visit Yusra Salaazr MD [facility] 04/26/22 Office Visit Yusra Salazar MD [facility] 03/25/22 Office Visit Elle Marshall PAC [facility] 02/05/22 Office Visit Sabine Ramirez APRN, BREAKING MACHINE OPERATOR [facility] [place] [facility] Showing recent visits within past 365 days and meeting all other requirements Future Appointments Date Type Provider Dept 10/27/22 Appointment [facility] Showing future appointments within next 90 days and meeting all other requirements documented in this encounter Plan of Treatment Upcoming Encounters Date Type Department Care Team (Late st Contact Info) Description 05/30/2025 1:00 PM CHIPPER MACHINE OPERATOR Office Visit [facility] Oncology Services [address] [place] [phone] Juan Felix MD [address] [place] [address] Discharge Disposition: Discharged to home or Selfcare [...] Ready to change Department associated with goal: [facility] Steps to achieve goal: [...] Ready to change Department associated with goal: [facility] Steps to achieve goal: [...] Total Score: 0 04/26/20 22 2:16 PM CHIPPER MACHINE OPERATOR documented as of this encounter Care Teams Piccolo Mechanic Relationship Specialty Start Date End Date Yusra Salazar MD PCP - General Family Medicine 06/21/21 08/09/23 Provider, [facility] PCP - General 08/10/23 09/28/23 Walt Gage DO [address] [place] [address] PCP - General Internal Medicine 09/29/23 Yusra Salazar MD Family Medicine 06/21/21 10/13/23 Landry Maria MD [address] [place] [address] Consulting Physician Radiation Oncology 06/26/19 Juan Felix MD [address] [place] [address] Consulting Physician Medical Oncology 06/26/19 Annika Hartmann MD [address] [place] [address] Consulting Physician General Surgery 06/26/19 Michelle Liu III, MD [address] [place] [address] Consulting Physician Urology 12/06/22 Yoan Sharma MD [address] [place] [address] Consulting Physician Neurology 07/26/23 Kareen Koenig APRN, BREAKING MACHINE OPERATOR [address] [place] [address] Nurse Practitioner Advanced Practice Nurse 10/14/22 documented as of this encounter
--- OUTSIDE RECORDS SUMMARY | 2025-04-29 15:38 | XMS_ITS | Clinical Summary ---
Author Organization [facility] Address [address] [place] [address] Phone Care Team Providers Care Daytime Babysitter Name Role Phone Landry Maria MD Unavailable [phone] Juan Felix MD Unavailable [phone] Annika Hartmann MD Unavailable [phone] Noe ALCARAZ MD, Courtney Unavailable [phone] Yoan Sharma MD Unavailable [phone] Kareen Koenig APRN, [facility] Unavailable Walt Gage DO Primary Care Provider Allergies Active Allergy Reactions Criticality Noted Date Comments Ixekizumab Rash,Swelling 11/21/2024 Taltz Nsaids Other (see Comments) 10/27/[address] MOLINA DOES NOT WANT HER TO TAKE Medications clopidogrel (PLAVIX) 75 MG Tablet 1 Active Acetaminophen (TYLENOL EXTRA STRENGTH PO) Take by mouth. Ac tive allopurinol (ZYLOPRIM) 100 MG Tablet Take 100 mg by mouth daily. 3 Active sulfamethoxazol e-trimethoprim DS (BACTRIM DS, SEPTRA DS) 800-160 MG TabletIndicatio ns:E coli infection Take 1 Tablet by mouth 2 times daily for 4 days. 8 Tablet 3 Active venlafaxine (EFFEXOR-XR) 75 MG CAPSULE SR 24 HR Take 1 Capsule by mouth daily. 90 Capsule 1 3 Active SUMAtriptan (IMITREX) 100 MG Tablet Take 1 Tablet by mouth daily as needed for Migraine. May repeat after 2hrs not to exceed 2 tabs in 24hr period. 9 Tablet 4 Active Azelastine HCl 137 MCG/SPRAY Solution USE 1 SPRAY(S) IN NOSTRIL(S) ONCE DAILY 30 mL 4 Active Additional Information Patient not taking.Reported on 01/30/2025 lidocaine (XYLOCAINE) 5 % Ointment APPLY OINTMENT EXTERNALLY THREE TIMES DAILY TO AREA ON CHEST WALL FOR PAIN. 36 g 4 Active fluticasone (FLONASE) 50 MCG/ACT Suspension 1 [place] by Nasal route daily. Use in each nostril as directed. 16 g 4 Active metoprolol Succinate (TOPROL-XL) 100 MG TABLET SR 24 HR Take 1 Tablet by mouth daily. 30 Tablet 4 Active tiZANidine (ZANAFLEX) 4 MG Tablet Take 1 Tablet by mouth 3 times daily. 90 Tablet 4 Active busPIRone (BUSPAR) 5 MG Tablet Take 1 Tablet by mouth 3 times daily. 90 Tablet 4 Active Additional Information Patient not taking.Reported on 11/29/2023 gabapentin (NEURONTIN) 800 MG Tablet Take 1 Tablet by mouth 3 times daily. 90 Tablet 4 Active hydrOXYzine (VISTARIL) 50 MG CapsuleIndicati ons:Fibromyalgi a Take 1 Capsule by mouth every 6 hours as needed for Anxiety. 90 Capsule 4 Active Additional Information Patient not taking.Reported on 11/29/2023 rOPINIRole (REQUIP) 1 MG Tablet Take 1 Tablet by mouth nightly. 90 Tablet 4 Active Additional Information Patient not taking.Reported on 11/29/2023 meclizine (ANTIVERT) 25 MG Tablet Take 1 Tablet by mouth 3 times daily as needed for Dizziness. 30 Tablet 4 Active Additional Information Patient not taking.Reported on 11/29/2023 venlafaxine (EFFEXOR-XR) 150 MG CAPSULE SR 24 HR Take 1 capsule by mouth once daily 30 Capsule 4 Active Otezla 10 & 20 & 30 MG Tablet Therapy Pack Take by mouth. 4 Active hydroxychloroqu ine (PLAQUENIL) 200 MG Tablet Take 1 Tablet by mouth 2 times daily. 4 Active nortriptyline (PAMELOR) 10 MG Capsule TAKE 2 CAPSULES BY MOUTH EVERY DAY AT BEDTIME 4 Active tamoxifen citrate 20 MG Tablet Take 1 Tablet by mouth daily 90 Tablet 2 4 Active Additional Information Patient not taking.Reported on 01/30/2025 mupirocin (BACTROBAN) 2 % Ointment APPLY TOPICALLY TO AFFECTED AREA ON ARM THREE TIMES DAILY 4 Active allopurinol (ZYLOPRIM) 100 MG Tablet Take 1 Tablet by mouth daily. 4 Active hydroxychloroqu ine (PLAQUENIL) 200 MG Tablet Take 200 mg by mouth. Active metroNIDAZOLE (FLAGYL) 500 MG Tablet Take 1 Tablet by mouth 3 times daily. 30 Tablet 5 Active Additional Information Patient not taking.Reported on 01/30/2025 HYDROcodone-radhika taminophen (NORCO) 5-325 MG TabletIndicatio ns:Diverticulit is Take 1 Tablet by mouth every 8 hours as needed for Moderate or more severe pain. 12 Tablet 5 Active Additional Information Patient not taking.Reported on 01/30/2025 ondansetron (ZOFRAN) 4 MG TabletIndicatio ns:Nausea and Vomiting Take 1 Tablet by mouth every 8 hours as needed for Nausea - 1st line. Indications: Nausea and Vomiting 10 Tablet 5 Active amLODIPine (NORVASC) 10 MG Tablet Take 10 mg by mouth daily. 5 Active dicyclomine (BENTYL) 20 MG Tablet Take 1 tablet by mouth twice daily 60 Tablet 5 Active dicyclomine (BENTYL) 20 MG Tablet Take 1 tablet by mouth twice daily 60 Tablet 5 Active metoclopramide (REGLAN) 5 MG TabletIndicatio ns:Nausea TAKE 1 TABLET BY MOUTH THREE TIMES DAILY BEFORE MEAL(S) 90 Tablet 5 Active pantoprazole (PROTONIX) 40 MG Tablet Delayed Response Take 1 tablet by mouth once daily 30 Tablet 5 Active Active Problems Problem Noted Date Diagnosed Date Lymphadenopathy 11/29/2023 Major depressive disorder, r ecurrent episode, moderate with anxious distress 10/07/2020 Long-term current use of tamoxifen 09/13/2019 Overview (09/13/2019): Patient started adjuvant tamoxifen 08/27/2019. History of therapeutic radiation 08/17/2019 Overview (03/25/2021): Hypofractionated right breast radiotherapy, 58.56 Gy in 24 fractions, 07/16/2019 thru 08/17/2019. Malignant neoplasm of upper- outer quadrant of right breast in female, estrogen receptor positive 06/18/2019 Cancer Staging:Clinical stage from 06/26/2019:Stage IA(cT1b, cN0, cM0, G2, ER+, LA+, HER2-) - Signed by Landry Maria MD on 07/03/2019 Pathologic stage from 06/26/2019:Stage IA(pT1c, pN0(sn), cM0, G2, ER+, LA+, HER2-, Oncotype DX score: 11) - Signed by Landry Maria MD on 07/03/2019 Overview (09/13/2019): Pathological stage IA G2, ER/LA positive, HER2 negative and Oncotype DX score 11 right breast IDC. She had breast conserving surgery 04/10/2019 at [facility]. She was not recommended to receive chemotherapy but was recommended as she was premenopausal to be placed on tamoxifen after completion of breast radiotherapy. She completed a hypofractionated course of right breast radiotherapy, 58.56 Gy in 24 fractions, 08/17/2019. She began adjuvant tamoxifen 08/27/2019. 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 Went to ED because of symptoms 06/27/2021 but did not require hospitalization and did not receive remdesivir. Gastroparesis 03/13/2021 06/30/2022 Diverticulitis 03/13/2021 06/30/2022 Fatty liver 03/13/2021 06/30/2022 Gastric polyps 03/13/2021 06/30/2022 Polyp of colon 03/13/2021 09/24/2021 Pain of right breast 09/23/2020 021 Overview (09/23/2020): More so after radiotherapy than before. Menometrorrhagia 10/31/2017 11/01/2017 Acute appendicitis with localized peritonitis 12/18/19 17 06/18/2019 UTI (urinary tract infection) 12/17/2016 08/17/2019 Constipation 08/17/2019 Irritable bowel syndrome wit h both constipation and diarrhea 06/30/2022 Anxiety 08/17/2019 Chronic depression Gastroesophageal reflux disease 06/30/2022 Hemorrhoids 08/17/2019 Multiple lymph nodes in abdomen 08/17/2019 Fatty pancreas 08/17/2019 Status post partial mastecto my of right breast 09/24/2021 Lymphedema of breast 023 Encounters Date Type Department Care Team Description 03/09/2025 Refill [facility] [place] [address] [place] [phone] Kareen Koenig APRN, SOLO TRUCK DRIVER Medication Refill 02/06/2025 Refill [facility] [place] [address] [place] [phone] Kareen Koenig APRN, SOLO TRUCK DRIVER Medication Refill 02/06/2025 [facility]ill [facility] [place] [address] [place] [phone] Kareen Koenig APRN, SOLO TRUCK DRIVER Medication Refill 02/06/2025 Refill [facility] [place] [address] [place] [address] Kareen Koenig APRN, CNP Medication Refill 01/30/2025 8:15 AM CDT Urgent Care Visit [facility] [place] [address] [place] [address] Landry Conway PAC Rash and other nonspecific skin eruption (Primary Dx) Discharge Disposition: Discharged to home or Selfcare 01/30/2025 Travel from Last 3 Months Immunizations Immunization Administration Dates Next Due Influenza Vaccine, Quadrivalent, PF 05/28/2019 Influenza, Injectable, Quadrivalent 06/01/2016 Influenza, Seasonal, Injectable, Undefined 03/13 Family History Medical History Relation Name Comments Heart Attack Brother Cancer Father skin Heart Attack Father Heart Disease Father Skin Cancer Father Diabetes Maternal Grandmother Cancer Maternal Uncle Pancreatic Cancer Mother Non Hodgkins ly mphoma /skin Hypertension Mother Skin Cancer Mother Stroke Paternal Grandmother Fainting Neg Hx Relation Name Status Comments Brother Father Maternal Grandmother Maternal Uncle Mother Paternal Grandmother Social History Tobacco Use Types Packs/Day Years Used Date Smoking Tobacco: Never Smokeless Tobacco: Never Tobacco Cessation:Counseling Given: Not Answered Alcohol Use Standard Drinks/Week Comments No 0 [...] Sex Assigned at Female 07/08/2023 8:53 PM KITCHEN UTILITY ASSOCIATE Legal Sex Female 10:43 PM CDT Gender Identity Female 07/08/2023 8:53 PM KITCHEN UTILITY ASSOCIATE Sexual Orientation Straight 07/08/2023 8: 59 PM KITCHEN UTILITY ASSOCIATE 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 Not on file Not on file Last Filed Vital Signs Vital Sign Reading Time Taken Comments Blood Pressure 156/88 01/30/2025 8:19 AM CDT Pulse 80 01/30/2025 8:19 AM CDT Temperature 36.8 C (98.2 F) 01/30/2025 8:19 AM CDT Respiratory Rate 16 01/30/2025 8:19 AM CDT Oxygen Saturation 98% 01/30/2025 8:19 AM CDT Inhaled Oxygen Concentration - - Weight 110.7 kg (244 lb) 12/16/2024 2:32 PM CDT Height 170.2 cm (5' 7) 12/16/2024 2:32 PM CDT Body Mass Index 38.22 12/16/2024 2:32 PM CDT Plan of Treatment Upcoming Encounters Date Type Department Care Team (Late st Contact Info) Description 05/30/2025 1:00 PM KITCHEN UTILITY ASSOCIATE Office Visit [facility] On[facility] Services [address] [place] [address] Juan Felix MD [address] [place] [address] Discharge Disposition: Discharged to home or Selfcare Health Maintenance Due Date Last Done Comments TdaP Immunization 1965 SARS-COV-2 Immunization (#1) 12/27/1972 Hepatitis B Immunization (1 of 3 - 19+ 3-dose series) 12/27/1986 Pneumococcal Immunization (50+ years) (1 of 2 - PCV) 12/27/1986 Zoster Immunization (1 of 2) 12/27/1986 Cologuard 12/27/2012 Immunochemical Fecal Occult Blood 12/27/2012 Respiratory Syncytial Virus (RSV) Immunization (Adult) (1 - Risk 50-74 years 1-dose series) 12/27/2017 Medicare Initial AWV G0438 03/20/2023 Influenza Immunization (#1) 02/18/202502/2019, 06/01/2016, 03/13/2013 Mammogram 03/22/2025 03/22/2024, 08/2023, 03/24/2023, Additional history exists Colonoscopy 03/31/2031 03/31/2021, 01/24/2014 Colorectal Cancer Screening 03/31/2031 Hepatitis C Virus (HCV) Screening Completed 03/13/2024, 07/02/2022, 09/17/2016, Additional history exists Human Papillomavirus (HPV) Immunization Aged Out No longer eligible based on patient's age to complete this topic Meningococcal Immunization (ACWY) Aged Out No longer eligible based on patient's age to complete this topic Rotavirus Immunization Aged Out No lo nger eligible based on patient's age to complete this topic Goals Goal Patient Goal Type Associated Problems Recent Progress Patient-Stated? Author Behavioral Health Behavioral Health On track(2021 4:08 PM CDT) Yes Yoly Zarco LCSW Note: I just need to be able to cope with all this that is going on. Goal Reviewed with: patient today Readiness to change: Ready to change Department associated with goal: [facility] Steps to achieve [...] Ready to change Department associated with goal: [facility] Steps to achieve [...] and or cope with anxiety and depression. Medical Devices Implanted Type Area Administrative Support Technician Device Identifier Shelf Expiration Date Model / Serial / Lot Barrier Adhesion 4x3in Abs Interceed Pelvis Strl - [id number] Implanted:Qty: 1 on 10/31/2017 by Isabel Gracia MD [facility] IMPLANT [employer] 4350 / [id number] / [id number] Procedures Procedure Name Priority Date/Time Associated Diagnosis Comments OLGA DIAG BILATERAL DIGITAL W CAD Routine 01/17/2019 Other signs and symptoms in breast HEPATITIS C RNA QUANT PCR VIRAL LOAD Routine 09/17/2016 11:08 AM CDT Elevated liver enzymes HM COLONOSCOPY Routine 01/24/2014 from Last 3 Months or Most Recently Relevant to Health Maintenance Results * OLGA DIAG BILATERAL DIGITAL W CAD (01/17/2019) Anatomical Region Laterality Modality breast Bilateral Mammography us Michelle Palacio APRN, NABILA IMG MAMMO ORDERABLES Fin al Result * HEPATITIS C RNA QUANT PCR VIRAL LOAD (09/17/2016 11:08 AM CDT) HCV RNA QUANT PCR NON DETECTED NON DETECTED 09/21/2016 2:58 PM CDT [facility] HCV RNA QT LOG10 <=0.00 Log10 IU/mL 09/21/2016 2:58 PM CDT [facility] Comment: LOG 10 is not applicable. Sample held in Serology for 1 month. Call Laboratory if further testing is desired. This test was performed using CONNIE AmpliPrep CONNIE Taq Man Real Time PCR. Blood specimen (specimen) Venipuncture / Unknown 09/17/2016 11:08 AM CDT 09/17/2016 1:12 PM CDT us Etta Blanco CHEF DE PARTIE, SOLO TRUCK DRIVER IMMUNOLOGY ORDERA BLES Final Result [facility] [address] [place] [address], [place] * COLONOSCOPY (01/24/2014) us Temitope Rebolledo APRN, SOLO TRUCK DRIVER PROCEDURE/MINOR SURGICAL ORDERABLES Final Result from Last 3 Months or Most Recently Relevant to Health Maintenance Insurance MEDICAID [place] MEDICARE C [employer] Advance Directives * Full Code (Latest Code Status on File) Date Activated Date Inactivated Comments 12/17/2016 6:20 PM 12/18/2016 3:59 PM CPR-Full Richelle tment: FULL ARREST: Attempt Resuscitation/CPR wit intubation and mechanical ventilation. PRE-ARREST: Use entire range of life support measures to stabilize the patient. Care Teams Daytime Babysitter Relationship Specialty Start Date End Date Walt Gage DO [facility] [place] [address] PCP - General Internal Medicine 09/29/23 Landry Maria MD [address] [place] [address] Consulting Physician Radiation Oncology 06/26/19 Juan Felix MD [address] [place] [address] Consulting Physician Medical Oncology 06/26/19 Annika Hartmann MD [address] [place] [address] Consulting Physician General Surgery 06/26/19 Michelle Liu III, MD [address] [place] [address] Consulting Physician Urology 12/06/22 Yoan Sharma MD [address] [place] [id number] Consulting Physician Neurology 07/26/23 Kareen Koenig, CHEF DE PARTIE, SOLO TRUCK DRIVER [address] [place] [address] Nurse Practitioner Advanced Practice Nurse 10/14/22
--- OUTSIDE RECORDS SUMMARY | 2025-04-29 15:38 | XMS_ITS | Encounter Summary ---
Author Organization [facility] Address [address] [place] [address] Phone Care Team Providers Care Meter And Service Line Inspector Name Role Phone Landry Maria MD Unavailable [phone] Juan Felix MD Unavailable [phone] Annika Hartmann MD Unavailable [phone] Noe ALCARAZ MD, Courtney Unavailable Yoan Sharma MD Unavailable [phone] Kareen Koenig APRN, [facility] Unavailable Walt Gage DO Primary Care Provider Reason for Visit * Reason Comments Medication Refill Encounter Details Date Type Department Care Team (Late st Contact Info) Description 01/09/2024 Refill [facility] [place] [address] [place] [address] [place] [address] [place] [address] Medication Refill Social History Tobacco Use Types [...] Sex Assigned at Female 07/08/2023 8:53 PM AUTOMOBILE DAMAGE APPRAISER Legal Sex Female 10:43 PM CDT Gender Identity Female 07/08/2023 8:53 PM AUTOMOBILE DAMAGE APPRAISER Sexual Orientation Straight 07/08/2023 8: 59 PM AUTOMOBILE DAMAGE APPRAISER 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 Not on file Not on file documented as of this encounter Miscellaneous Notes * Telephone Encounter - Malu Pena RN - 01/09/2024 10:01 AM CDT Pt no longer under provider's care documented in this encounter Plan of Treatment Upcoming Encounters Date Type Department Care Team (Late st Contact Info) Description 05/30/2025 1:00 PM AUTOMOBILE DAMAGE APPRAISER Office Visit [facility] [address] [place] [address] Juan Felix MD [address] [place] [address] Discharge Disposition: Discharged to home or Selfcare documented as of this encounter Goals Goal Patient Goal Type Associated Problems Recent Progress Patient-Stated? Author Behavioral Health Behavioral Health On track(2021 4:08 PM CDT) Yes Yoly Zarco, PERSONAL INJURY SPECIALIST Note: I just need to be able to cope with all this that is going on. Goal Reviewed with: patient today Readiness to change: Ready to change Department associated with goal: [facility] Steps to achieve goal: [...] Ready to change Department associated with goal: [facility] Steps to achieve goal: [...] Total Score: 0 04/26/20 22 2:16 PM AUTOMOBILE DAMAGE APPRAISER documented as of this encounter Care Teams Meter And Service Line Inspector Relationship Specialty Start Date End Date Walt Gage DO [facility] [place] [address] PCP - General Internal Medicine 09/29/23 Landry Maria MD [address] [place] [address] Consulting Physician Radiation Oncology 06/26/19 Juan Felix MD [address] [place] [address] Consulting Physician Medical Oncology 06/26/19 Annika Hartmann MD [address] [place] [id number] Consulting Physician General Surgery 06/26/19 Michelle Liu III, MD [address] [place] [address] Consulting Physician Urology 12/06/22 Yoan Sharma MD [address] [place] [address] Consulting Physician Neurology 07/26/23 Kareen Koenig APRN, MANAGER OF TAX [address] [place] [address] Nurse Practitioner Advanced Practice Nurse 10/14/22 documented as of this encounter
--- OUTSIDE RECORDS SUMMARY | 2025-04-29 15:38 | XMS_ITS | Encounter Summary ---
Author Organization [facility] Address [address] [place] [address] Phone Care Team Providers Care Lacquerer Name Role Phone Yusra Salazar MD Primary Care Provider [phone] Yusra Salazar MD Unavailable Landry Maria MD Unavailable Juan Felix MD Unavailable [phone] Annika Hartmann MD Unavailable [phone] Noe ALCARAZ MD, Michelle Unavailable [phone] Yoan Sharma MD Unavailable [phone] Provider, None Primary Care Provider UnavailKareen Humphreys APRN, ASSISTANT MANAGER RETAIL Unavailable Walt Gage DO Primary Care Provider Reason for Visit * Reason Comments Medication Refill Encounter Details Date Type Department Care Team (Late st Contact Info) Description 06/13/2022 Refill [facility] [address] [place] [address] Madelyn Kelly MD [address] [place] [address] Medication Refill Social History Tobacco Use Types [...] Sex Assigned at Female 07/08/2023 8:53 PM SIDE SHOW ENTERTAINER Legal Sex Female 10:43 PM CDT Gender Identity Female 07/08/2023 8:53 PM SIDE SHOW ENTERTAINER Sexual Orientation Straight 07/08/2023 8: 59 PM SIDE SHOW ENTERTAINER 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 ondansetron (ZOFRAN-ODT) 4 MG TABLET DISPERSIBLE [Pharmacy Med Name: Ondansetron 4 MG Oral Tablet Disintegrating] 10 Tablet 0 Sig: DISSOLVE 1 TABLET IN MOUTH EVERY 8 HOURS NEEDED FOR NAUSEA Refill cannot be delegated. Rx pended. Please sign if you agree. Last fill: 05/25/22 Patients last OV with GI: 04/07/22 Next Office Visit with GI: SHOW ENTERTAINER documented in this encounter Plan of Treatment Upcoming Encounters Date Type Department Care Team (Late st Contact Info) Description 05/30/2025 1:00 PM SIDE SHOW ENTERTAINER Office Visit [facility] Oncology Services [address] [place] [phone] Juan Felix MD [address] [place] [address] Discharge Disposition: Discharged to home or Selfcare documented as of this encounter Goals Goal Patient Goal Type Associated Problems Recent Progress Patient-Stated? Author [facility] Behavioral Health On track(2021 4:08 PM CDT) Yes Yoly Zarco LCSW Note: I just need to be able to cope with all this that is going on. Goal Reviewed with: patient today Readiness to change: Ready to change Department associated with goal: [facility] Steps to achieve [...] to change Department associated with goal: [facility] Steps to achieve [...] RPA 08/08/2022 08/08/2022 0 08/08/2022 3:34 PM SIDE SHOW ENTERTAINER Influenza 08/08/2022 08/08/2022 08/15/2022 12:1 6 AM SIDE SHOW ENTERTAINER Assessment Noted Time PHQ-9 Depression Total Score: 0 04/26/20 22 2:16 PM SIDE SHOW ENTERTAINER documented as of this encounter Care Teams Lacquerer Relationship Specialty Start Date End Date Yusra Salazar MD PCP - General Family Medicine 06/21/21 08/09/23 Provider, None [place] PCP - General 08/10/23 09/28/23 Walt Gage DO [address] [place] [address] [address] [place], [place] [id number] PCP - General Internal Medicine 09/29/23 Yusra Salazar MD Family Medicine 06/21/21 10/13/23 Landry Maria MD [address] [place] [address] Consulting Physician Radiation Oncology 06/26/19 Juan Felix MD [address] [place] [address] Consulting Physician Medical Oncology 06/26/19 Annika Hratmann MD [address] [place] [address] Consulting Physician General Surgery 06/26/19 Michelle Liu III, MD [address] [place] [address] Consulting Physician Urology 12/06/22 Yoan Sharma MD [address] [place] [phone] Consulting Physician Neurology 07/26/23 Kareen Koenig APRN, ASSISTANT MANAGER RETAIL [address] [place] [address] Nurse Practitioner Advanced Practice Nurse 10/14/22 documented as of this encounter
--- OUTSIDE RECORDS SUMMARY | 2025-04-29 15:38 | XMS_ITS | Encounter Summary ---
Author Organization [facility] Address [address] [place] [address] Phone Care Team Providers Care Finisher Hand Name Role Phone Landry Maria MD Unavailable Juan Felix MD Unavailable Annika Hartmann MD Unavailable Noe ALCARAZ MD, Courtney Unavailable Yoan Sharma MD Unavailable Kareen Koenig APRN, SPANISH MOSS PICKER Unavailable Walt Gage DO Primary Care Provider Reason for Visit * Reason Comments Medication Refill Encounter Details Date Type Department Care Team (Late st Contact Info) Description 05/02/2024 Refill [facility] - [place] [address] [place] [address] Donaldo Stephens APRN, SPANISH MOSS PICKER [address] [address] Medication Refill Social History Tobacco Use Types [...] Sex Assigned at Female 07/08/2023 8:53 PM FEDERAL JUDGE Legal Sex Female 10:43 PM CDT Gender Identity Female 07/08/2023 8:53 PM FEDERAL JUDGE Sexual Orientation Straight 07/08/2023 8: 59 PM FEDERAL JUDGE 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 Not on file Not on file documented as of this encounter Miscellaneous Notes * Telephone Encounter - Karis Johnston RN - 05/02/2024 3:11 PM CST PCP: Walt Gage DO RAL JUDGE documented in this encounter Plan of Treatment Upcoming Encounters Date Type Department Care Team (Late st Contact Info) Description 05/30/2025 1:00 PM FEDERAL JUDGE Office Visit [facility] Oncology Services [address] [place] [address] Juan Felix MD [address] [place] [address] Discharge Disposition: Discharged to home or Selfcare [...] Ready to change Department associated with goal: [facility] Steps to achieve goal: [...] Ready to change Department associated with goal: [facility] Steps to achieve goal: [...] Total Score: 0 04/26/20 22 2:16 PM FEDERAL JUDGE documented as of this encounter Care Teams Finisher Hand Relationship Specialty Start Date End Date Walt Gage DO [facility] [facility] [place] [address] PCP - General Internal Medicine 09/29/23 Landry Maria MD [address] [place] [address] Consulting Physician Radiation Oncology 06/26/19 Juan Felix MD [address] [place] [address] Consulting Physician Medical Oncology 06/26/19 Annika Hartmann MD [address] [place] [address] Consulting Physician General Surgery 06/26/19 Michelle Liu III, MD #2 [place] [address] Consulting Physician Urology 12/06/22 Yoan Sharma MD [address] [place] [address] Consulting Physician Neurology 07/26/23 Kareen Koenig APRN, SPANISH MOSS PICKER [address] [place] [address] Nurse Practitioner Advanced Practice Nurse 10/14/22 documented as of this encounter
--- OUTSIDE RECORDS SUMMARY | 2025-04-29 15:38 | XMS_ITS | Encounter Summary ---
Author Organization [facility] Address [address] [place] [address] Phone Care Team Providers Care Retail Key Holder Name Role Phone Yusra Salazar MD Primary Care Provider [phone] Yusra Salazar MD Unavailable Landry Maria MD Unavailable Juan Felix MD Unavailable [phone] Annika Hartmann MD Unavailable [phone] Noe ALCARAZ MD, Michelle Unavailable [phone] Yoan Sharma MD Unavailable [phone] Provider, None Primary Care Provider UnavailKareen Humphreys APRN, STOCK WORKER Unavailable Walt Gage DO Primary Care Provider Reason for Visit * Reason Comments Medication Refill Encounter Details Date Type Department Care Team (Late st Contact Info) Description 01/11/2023 Refill [facility] Family [facility] [address] [place] [phone] [place] [address] [place] [address] Medication Refill Social History Tobacco Use Types [...] Sex Assigned at Female 07/08/2023 8:53 PM MACHINE CONTAINER WASHER Legal Sex Female 10:43 PM CDT Gender Identity Female 07/08/2023 8:53 PM MACHINE CONTAINER WASHER Sexual Orientation Straight 07/08/2023 8: 59 PM MACHINE CONTAINER WASHER 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 No / Unsure 12/26/2022 1:55 PM CDT documented as of this encounter Miscellaneous Notes * Telephone Encounter - Karis Johnston RN - 01/13/2023 7:36 AM CDT Name from pharmacy: tiZANidine HCl 4 MG Oral Tablet Will file in chart as: tiZANidine (ZANAFLEX) 4 MG Tablet The original prescription was reordered on 01/11/2023 by Yusra Salazar MD. * Telephone Encounter - Karis Johnston RN - 01/11/2023 10:47 AM CDT duplicate documented in this encounter Plan of Treatment Upcoming Encounters Date Type Department Care Team (Late st Contact Info) Description 05/30/2025 1:00 PM MACHINE CONTAINER WASHER Office Visit [facility] Oncology Services [address] [place] [address] Juan Felix MD [address] [place] [address] Discharge Disposition: Discharged to home or Selfcare [...] change Department associated with goal: [facility] Steps to achieve [...] change Department associated with goal: [facility] Steps to achieve [...] Total Score: 0 04/26/20 22 2:16 PM MACHINE CONTAINER WASHER documented as of this encounter Care Teams Retail Key Holder Relationship Specialty Start Date End Date Yusra Salazar MD PCP - General Family Medicine 06/21/21 08/09/23 Provider, None [place] PCP - General 08/10/23 09/28/23 Walt Gage DO [address] [facility] [place] [address] PCP - General Internal Medicine 09/29/23 Yusra Salazar MD Family Medicine 06/21/21 10/13/23 Landry Maria MD [address] [place], [place] [address] Consulting Physician Radiation Oncology 06/26/19 Juan Felix MD [address] [place] [address] Consulting Physician Medical Oncology 06/26/19 Annika Hartmann MD [address] [place] [address] Consulting Physician General Surgery 06/26/19 Michelle Liu III, MD [address] [place] [address] Consulting Physician Urology 12/06/22 Yoan Sharma MD [address] [place] [address] Consulting Physician Neurology 07/26/23 Kareen Koenig APRN, STOCK WORKER [address] [place] [address] Nurse Practitioner Advanced Practice Nurse 10/14/22 documented as of this encounter
--- OUTSIDE RECORDS SUMMARY | 2025-04-29 15:38 | XMS_ITS | Encounter Summary ---
Author Organization [facility] Address [address] [place] [address] Phone Care Team Providers Care Bundling Machine Operator Name Role Phone Yusra Salazar MD Primary Care Provider [phone] Yusra Salazar MD Unavailable [phone] Landry Maria MD Unavailable [phone] Juan Felix MD Unavailable [phone] Annika Hartmann MD Unavailable [phone] Noe ALCARAZ MD, Michelle Unavailable [phone] Yoan Sharma MD Unavailable [phone] Provider, None Primary Care Provider UnavailKareen Humphreys APRN, PLAYER SERVICES REPRESENTATIVE Unavailable Walt Gage DO Primary Care Provider Reason for Visit * Reason Comments Medication Refill Encounter Details Date Type Department Care Team (Late st Contact Info) Description 12/25/2021 Refill [facility] - [place] [address] [place] [address] Ashleigh Torres Chelsey, PAC [address] [place], [place] [phone] Medication Refill Social History Tobacco Use Types Packs/Day Years Used Date Smoking Tobacco: Never Smokeless Tobacco: Never Alcohol Use Standard Drinks/Week Comments No 0 (1 standard drink = 0.6 oz pur e alcohol) PHQ-2 Answer Date Recorded Total Score - Questions 1-9 09/19 Education Answer Date Recorded What is the highest level of school you have completed or the highest degree you have received? 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 No / Unsure 12/18/2021 4:04 PM CDT documented as of this encounter Miscellaneous Notes * Telephone Encounter - Abigail Mukherjee RN - 2021 12:01 PM CDT Pharmacy requesting refill of: Requested Prescriptions Pending Prescriptions Disp Refills ??? ondansetron (ZOFRAN-ODT) 4 MG TABLET DISPERSIBLE [Pharmacy Med Name: Ondansetron 4 MG Oral Tablet Disintegrating] 10 Tablet 0 Sig: DISSOLVE 1 TABLET IN MOUTH EVERY 8 HOURS NEEDED FOR NAUSEA Last fill: 12/25/2021 Patients last OV with GI: 11/26/2021 Next Office Visit with GI: None scheduled. Recall placed per epic. zofran order pended, please review. documented in this encounter Plan of Treatment Upcoming Encounters Date Type Department Care Team (Late st Contact Info) Description 05/30/2025 1:00 PM FEDERAL JAVA DEVELOPER Office Visit [facility] Oncology Services [address] [place] [address] Juan Felix MD [address] [place] [address] Discharge Disposition: Discharged to home or Selfcare [...] change Department associated with goal: [facility] Steps to achieve [...] change Department associated with goal: [facility] Steps to achieve [...] RPA 08/08/2022 08/08/2022 0 08/08/2022 3:34 PM FEDERAL JAVA DEVELOPER Influenza 08/08/2022 08/08/2022 08/15/2022 12:1 6 AM FEDERAL JAVA DEVELOPER Assessment Noted Time PHQ-9 Depression Total Score: 25 021 5:00 PM CDT documented as of this encounter Care Teams Bundling Machine Operator Relationship Specialty Start Date End Date Yusra Salazar MD PCP - General Family Medicine 06/21/21 08/09/23 Provider, [facility] PCP - General 08/10/23 09/28/23 Walt Gage DO [address] [facility] [address] [place] [address] PCP - General Internal Medicine 09/29/23 Yusra Salazar MD Family Medicine 06/21/21 10/13/23 Landry Maria MD [address] [place] [address] Consulting Physician Radiation Oncology 06/26/19 Juan Felix MD [address] [place] [address] Consulting Physician Medical Oncology 06/26/19 Annika Hartmann MD [address] [place] [address] Consulting Physician General Surgery 06/26/19 Michelle Liu III, MD #[address] [place] [address] Consulting Physician Urology 12/06/22 Yoan Sharma MD [address] [place] [address] Consulting Physician Neurology 07/26/23 Kareen Koenig APRN, PLAYER SERVICES REPRESENTATIVE [address] [place] [address] Nurse Practitioner Advanced Practice Nurse 10/14/22 documented as of this encounter
--- OUTSIDE RECORDS SUMMARY | 2025-04-29 15:38 | XMS_ITS | Encounter Summary ---
Author Organization [facility] Address [address] [place] [address] Phone Care Team Providers Care Planishing Hammer Operator Name Role Phone Yusra Salazar MD Primary Care Provider [phone] Yusra Salazar MD Unavailable Landry Maria MD Unavailable [phone] Juan Felix MD Unavailable [phone] Annika Hartmann MD Unavailable [phone] Noe ALCARAZ MD, Michelle Unavailable [phone] Yoan Sharma MD Unavailable [phone] Provider, None Primary Care Provider UnavailKareen Humphreys APRN, FILLER SHREDDING MACHINE LOADER Unavailable Walt Gage DO Primary Care Provider Reason for Visit * Reason Comments Medication Refill Encounter Details Date Type Department Care Team (Late st Contact Info) Description 06/15/2022 Refill [facility] [address] [place] [address] [place] [address] [place] [address] Medication Refill Social History Tobacco Use Types [...] Sex Assigned at Female 07/08/2023 8:53 PM PLANETARIUM TECHNICIAN Legal Sex Female 10:43 PM CDT Gender Identity Female 07/08/2023 8:53 PM PLANETARIUM TECHNICIAN Sexual Orientation Straight 07/08/2023 8: 59 PM PLANETARIUM TECHNICIAN 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 Not on file documented as of this encounter Miscellaneous Notes * Telephone Encounter - Chika Dunbar RN - 06/16/2022 10:48 AM CST duplicate ETARIUM TECHNICIAN documented in this encounter Plan of Treatment Upcoming Encounters Date Type Department Care Team (Late st Contact Info) Description 05/30/2025 1:00 PM PLANETARIUM TECHNICIAN [facility] [address] [place] [address] Juan Felix MD [address] [place] [address] Discharge Disposition: Discharged to home or Selfcare [...] Ready to change Department associated with goal: [facility] Steps to achieve [...] Ready to change Department associated with goal: [facility] Steps to achieve [...] RPA 08/08/2022 08/08/2022 0 08/08/2022 3:34 PM PLANETARIUM TECHNICIAN Influenza 08/08/2022 08/08/2022 08/15/2022 12:1 6 AM PLANETARIUM TECHNICIAN Assessment Noted Time PHQ-9 Depression Total Score: 0 04/26/20 2:16 PM PLANETARIUM TECHNICIAN documented as of this encounter Care Teams Planishing Hammer Operator Relationship Specialty Start Date End Date Yusra Salazar MD PCP - General Family Medicine 06/21/21 08/09/23 Provider, None [place] PCP - General 08/10/23 09/28/23 Walt Gage DO [facility] [facility] [place] [address] PCP - General Internal Medicine 09/29/23 Yusra Salazar MD Family Medicine 06/21/21 10/13/23 Landry Maria MD [address] [place] [address] Consulting Physician Radiation Oncology 06/26/19 Juan Felix MD [address] [place] [address] Consulting Physician Medical Oncology 06/26/19 Annika Hartmann MD [address] [place] [address] Consulting Physician General Surgery 06/26/19 Michelle Liu III, MD #[address] [place] [address] Consulting Physician Urology 12/06/22 Yoan Sharma MD [address] [place] [address] Consulting Physician Neurology 07/26/23 Kareen Koenig APRN, FILLER SHREDDING MACHINE LOADER [address] [place] [address] Nurse Practitioner Advanced Practice Nurse 10/14/22 documented as of this encounter
--- OUTSIDE RECORDS SUMMARY | 2025-04-29 15:38 | XMS_ITS | Encounter Summary ---
Author Organization [facility] Address [address] [place] [address] Phone Care Team Providers Care Manager Marketing Name Role Phone Yusra Salazar MD Primary Care Provider Yusra Salazar MD Unavailable Landry Maria MD Unavailable Juan Felix MD Unavailable [phone] Annika Hartmann MD Unavailable [phone] Noe ALCARAZ MD, Michelle Unavailable Yoan Sharma MD Unavailable [phone] Provider, None Primary Care Provider UnavailKareen Humphreys APRN, RESIDENTIAL SALES REP Unavailable Walt Gage DO Primary Care Provider Reason for Visit * Reason Comments Medication Refill Encounter Details Date Type Department Care Team (Late st Contact Info) Description 11/17/2021 Refill [facility] #[address] [place] [address] Elle [facility] [address] [place] [address] Medication Refill Social History Tobacco Use Types [...] Sex Assigned at Female 07/08/2023 8:53 PM SNUFF BOX FINISHER Legal Sex Female 10:43 PM CDT Gender Identity Female 07/08/2023 8:53 PM SNUFF BOX FINISHER Sexual Orientation Straight 07/08/2023 8: 59 PM SNUFF BOX FINISHER 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 No / Unsure 10/30/2021 3:01 PM CDT documented as of this encounter Plan of Treatment Upcoming Encounters Date Type Department Care Team (Late st Contact Info) Description 05/30/2025 1:00 PM SNUFF BOX FINISHER Office Visit [facility] Oncology Services [address] [place] [address] Juan Felix MD [address] [place] [address] Discharge Disposition: Discharged to home or Selfcare [...] Ready to change Department associated with goal: [facility] Steps to achieve goal: [...] Ready to change Department associated with goal: [facility] Steps to achieve goal: [...] RPA 08/08/2022 08/08/2022 0 08/08/2022 3:34 PM SNUFF BOX FINISHER Influenza 08/08/2022 08/08/2022 08/15/2022 12:1 6 AM SNUFF BOX FINISHER Assessment Noted Time PHQ-9 Depression Total Score: 25 021 5:00 PM CDT documented as of this encounter Care Teams Manager Marketing Relationship Specialty Start Date End Date Yusra Salazar MD PCP - General Family Medicine 06/21/21 08/09/23 Provider, None [place] PCP - General 08/10/23 09/28/23 Walt Gage DO [facility] [place] [address] PCP - General Internal Medicine 09/29/23 Yusra Salazar MD Family Medicine 06/21/21 10/13/23 Landry Maria MD [address] [place], [place] [address] Consulting Physician Radiation Oncology 06/26/19 Juan Felix MD [address] [place], [place] [address] Consulting Physician Medical Oncology 06/26/19 Annika Hartmann MD [address] [place] [address] Consulting Physician General Surgery 06/26/19 Michelle Liu III, MD [address] [place] [address] Consulting Physician Urology 12/06/22 Yoan Sharma MD [address] [place] [address] Consulting Physician Neurology 07/26/23 Kareen Koenig APRN, RESIDENTIAL SALES REP [address] [place] [address] Nurse Practitioner Advanced Practice Nurse 10/14/22 documented as of this encounter
--- OUTSIDE RECORDS SUMMARY | 2025-04-29 15:38 | XMS_ITS | Encounter Summary ---
Author Organization [facility] Address [address] [place] [address] Phone Care Team Providers Care Data Review Specialist Name Role Phone Landry Maria MD Unavailable [phone] Juan Felix MD Unavailable Annika Hartmann MD Unavailable [phone] Noe ALCARAZ MD, Courtney Unavailable Yoan Sharma MD Unavailable Kareen Koenig APRN, [facility] Unavailable Walt Gage DO Primary Care Provider Reason for Visit * Reason Comments Medication Refill Encounter Details Date Type Department Care Team (Late st Contact Info) Description 02/03/2024 Refill [facility] [address] [place] [address] [place] [address] [place] [address] Medication Refill Social History Tobacco Use Types [...] Sex Assigned at Female 07/08/2023 8:53 PM PRODUCTION MAINTENANCE TECHNICIAN Legal Sex Female 10:43 PM CDT Gender Identity Female 07/08/2023 8:53 PM PRODUCTION MAINTENANCE TECHNICIAN Sexual Orientation Straight 07/08/2023 8: 59 PM PRODUCTION MAINTENANCE TECHNICIAN 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 Not on file documented as of this encounter Miscellaneous Notes * Telephone Encounter - Karis Johnston RN - 02/03/2024 11:41 AM CDT PCP Walt Gage DO documented in this encounter Plan of Treatment Upcoming Encounters Date Type Department Care Team (Late st Contact Info) Description 05/30/2025 1:00 PM PRODUCTION MAINTENANCE TECHNICIAN Office Visit [facility] Oncology Services [address] [place] [address] Juan Felix MD [address] [place] [address] Discharge Disposition: Discharged to home or Selfcare [...] Total Score: 0 04/26/20 22 2:16 PM PRODUCTION MAINTENANCE TECHNICIAN documented as of this encounter Care Teams Data Review Specialist Relationship Specialty Start Date End Date Walt Gage DO [facility] [place] [address] PCP - General Internal Medicine 09/29/23 Landry Maria MD [address] [place] [address] Consulting Physician Radiation Oncology 06/26/19 Juan Felix MD [address] [place] [address] Consulting Physician Medical Oncology 06/26/19 Annika Hartmann MD [address] [place] [address] Consulting Physician General Surgery 06/26/19 Michelle Liu III, MD #[address] [place] [address] Consulting Physician Urology 12/06/22 Yoan Sharma MD #[address] [place] [address] Consulting Physician Neurology 07/26/23 Kareen Koenig APRN, QUALITY COMPLIANCE CONSULTANT [address] [place] [address] Nurse Practitioner Advanced Practice Nurse 10/14/22 documented as of this encounter
--- OUTSIDE RECORDS SUMMARY | 2025-04-29 15:38 | XMS_ITS | Encounter Summary ---
Author Organization [facility] Address [address] [place] [address] Phone Care Team Providers Care Bricklayer Helper Name Role Phone Landry Maria MD Unavailable Juan Felix MD Unavailable Annika Hartmann MD Unavailable Noe ALCARAZ MD, Courtney Unavailable Yoan Sharma MD Unavailable Kareen Koenig APRN, EMBOSSING MACHINE OPERATOR HELPER Unavailable Walt Gage DO Primary Care Provider Reason for Visit * Reason Comments Medication Refill Encounter Details Date Type Department Care Team (Late st Contact Info) Description 02/06/2025 Refill [facility] - [place] [address] [place] [address] Kareen Koenig APRN, EMBOSSING MACHINE OPERATOR HELPER [address] [place] [address] Medication Refill Social History Tobacco Use Types [...] Sex Assigned at Female 07/08/2023 8:53 PM IMPROVEMENT COORDINATOR Legal Sex Female 10:43 PM CDT Gender Identity Female 07/08/2023 8:53 PM IMPROVEMENT COORDINATOR Sexual Orientation Straight 07/08/2023 8: 59 PM IMPROVEMENT COORDINATOR 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 documented in this encounter Plan of Treatment Upcoming Encounters Date Type Department Care Team (Late st Contact Info) Description 05/30/2025 1:00 PM IMPROVEMENT COORDINATOR Office Visit [facility] Oncology Services [address] [place] [address] Juan Felix MD [address] [place] [address] Discharge Disposition: Discharged to home or Selfcare [...] Ready to change Department associated with goal: [facility] Steps to achieve goal: [...] Ready to change Department associated with goal: [facility] Steps to achieve goal: [...] Total Score: 0 04/26/20 22 2:16 PM IMPROVEMENT COORDINATOR documented as of this encounter Care Teams Bricklayer Helper Relationship Specialty Start Date End Date Walt Gage DO [facility] [facility] [address] [place], [place] [phone] PCP - General Internal Medicine 09/29/23 Landry Maria MD [address] [place] [address] Consulting Physician Radiation Oncology 06/26/19 Juan Felix MD [address] [place] [address] Consulting Physician Medical Oncology 06/26/19 Annika Hartmann MD [address] [place] [address] Consulting Physician General Surgery 06/26/19 Michelle Liu III, MD #[address] [place] [address] Consulting Physician Urology 12/06/22 Yoan Sharma MD [address] [place] [address] Consulting Physician Neurology 07/26/23 Kareen Koenig APRN, EMBOSSING MACHINE OPERATOR HELPER [address] [place] [address] Nurse Practitioner Advanced Practice Nurse 10/14/22 documented as of this encounter
--- OUTSIDE RECORDS SUMMARY | 2025-04-29 15:38 | XMS_ITS | Encounter Summary ---
Author Organization [facility] Address [address] [place] [address] Phone Care Team Providers Care Heel Shaver Name Role Phone Landry Maria MD Unavailable [phone] Juan Felix MD Unavailable [phone] Annika Hartmann MD Unavailable Noe ALCARAZ MD, Courtney Unavailable Yoan Sharma MD Unavailable [phone] Kareen Koenig APRN, USED CAR MAKE READY MECHANIC Unavailable Walt Gage DO Primary Care Provider Reason for Visit * Reason Comments Medication Refill Encounter Details Date Type Department Care Team (Late st Contact Info) Description 05/29/2024 Refill [facility] - [facility]ology - [place] [address] [place] [address] Kareen Koenig APRN, USED CAR MAKE READY MECHANIC [address] [place] [address] Medication Refill Social History Tobacco Use Types [...] Sex Assigned at Female 07/08/2023 8:53 PM OCCUPATIONAL THERAPIST ASSISTANT Legal Sex Female 10:43 PM CDT Gender Identity Female 07/08/2023 8:53 PM OCCUPATIONAL THERAPIST ASSISTANT Sexual Orientation Straight 07/08/2023 8: 59 PM OCCUPATIONAL THERAPIST ASSISTANT 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 PATIONAL THERAPIST ASSISTANT documented in this encounter Plan of Treatment Upcoming Encounters Date Type Department Care Team (Late st Contact Info) Description 05/30/2025 1:00 PM OCCUPATIONAL THERAPIST ASSISTANT Office Visit [facility] Oncology Services [address] [place] [address] Juan Felix MD [address] [place] [address] Discharge Disposition: Discharged to home or Selfcare [...] Ready to change Department associated with goal: [facility] Steps to [...] Ready to change Department associated with goal: [facility] Steps to [...] Total Score: 0 04/26/20 22 2:16 PM OCCUPATIONAL THERAPIST ASSISTANT documented as of this encounter Care Teams Heel Shaver Relationship Specialty Start Date End Date Walt Gage DO [facility] [facility] [place] [address] PCP - General Internal Medicine 09/29/23 Landry Maria MD [address] [place] [address] Consulting Physician Radiation Oncology 06/26/19 Juan Felix MD [address] [place] [address] Consulting Physician Medical Oncology 06/26/19 Annika Hartmann MD [address] [place] [address] Consulting Physician General Surgery 06/26/19 Michelle Liu III, MD [address] [place] [address] Consulting Physician Urology 12/06/22 Yoan Sharma MD [address] [place] [address] Consulting Physician Neurology 07/26/23 Kareen Koenig APRN, USED CAR MAKE READY MECHANIC [address] [place] [address] Nurse Practitioner Advanced Practice Nurse 10/14/22 documented as of this encounter
--- OUTSIDE RECORDS SUMMARY | 2025-04-29 15:38 | XMS_ITS | Encounter Summary ---
Author Organization [facility] Address [address] [place] [address] Phone Care Team Providers Care Night Guard Name Role Phone Landry Maria MD Unavailable Juan Felix MD Unavailable [phone] Annika Hartmann MD Unavailable [phone] Noe ALCARAZ MD, Courtney Unavailable Yoan Sharma MD Unavailable Kareen Koenig APRN, HAND COREMAKER Unavailable Walt Gage DO Primary Care Provider Reason for Visit * Reason Comments Medication Refill Encounter Details Date Type Department Care Team (Late st Contact Info) Description 11/06/2023 Refill [facility] - Family Medicine - [place] [address] [place] [address] Donaldo Stephens APRN, HAND COREMAKER [address] [address] Medication Refill Social History Tobacco Use Types [...] Sex Assigned at Female 07/08/2023 8:53 PM HEEL SHAVER Legal Sex Female 10:43 PM CDT Gender Identity Female 07/08/2023 8:53 PM HEEL SHAVER Sexual Orientation Straight 07/08/2023 8: 59 PM HEEL SHAVER 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 Steps to [...] On track(2021 4:08 PM CDT) Yoly Roe, GEAR CUTTING MACHINE SET UP OPERATOR Note: Dodie will manage depression and anxiety more effectively to have reduction of anxiety and depression symptoms. Goal Reviewed with: patient today Readiness to change: Ready to change Department associated with goal: [facility] Steps to [...] Total Score: 0 04/26/20 22 2:16 PM HEEL SHAVER documented as of this encounter Care Teams Night Guard Relationship Specialty Start Date End Date Walt Gage DO [facility] [place] [address] PCP - General Internal Medicine 09/29/23 Landry Maria MD [address] [place] [address] Consulting Physician Radiation Oncology 06/26/19 Juan Felix MD [address] [place] [address] Consulting Physician Medical Oncology 06/26/19 Annika Hartmann MD [address] [place] [address] Consulting Physician General Surgery 06/26/19 Michelle Liu III, MD [address] [place] [address] Consulting Physician Urology 12/06/22 Yoan Sharma MD [address] [place] [address] Consulting Physician Neurology 07/26/23 Kareen Koenig APRN, HAND COREMAKER [address] [place] [address] Nurse Practitioner Advanced Practice Nurse 10/14/22 documented as of this encounter
--- OUTSIDE RECORDS SUMMARY | 2025-04-29 15:38 | XMS_ITS | Encounter Summary ---
Author Organization [facility] Address [address] [place] [address] Phone Care Team Providers Care Court Worker Name Role Phone Yusra Salazar MD Primary Care Provider Yusra Salazar MD Unavailable [phone] Landry Maria MD Unavailable Juan Felix MD Unavailable [phone] Annika Hartmann MD Unavailable [phone] Noe ALCARAZ MD, Michelle Unavailable [phone] Yoan Sharma MD Unavailable [phone] Provider, None Primary Care Provider UnavailKareen Humphreys APRN, WOODWORKER Unavailable Walt Gage DO Primary Care Provider Reason for Visit * Reason Comments Medication Refill Encounter Details Date Type Department Care Team (Late st Contact Info) Description 08/25/2022 Refill [facility] - Family [facility] [address] [place] [id number] [place] [address] [place] [address] Medication Refill Social History Tobacco Use Types [...] Sex Assigned at Female 07/08/2023 8:53 PM DIGITAL MEDIA INTERN Legal Sex Female 10:43 PM CDT Gender Identity Female 07/08/2023 8:53 PM DIGITAL MEDIA INTERN Sexual Orientation Straight 07/08/2023 8: 59 PM DIGITAL MEDIA INTERN 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 No / Unsure 08/08/2022 2:01 PM DIGITAL MEDIA INTERN documented as of this encounter Miscellaneous Notes * Telephone Encounter - Karis Johnston RN - 08/26/2022 9:42 AM CST Medication failed the protocol, provider to review and approve the medication order if appropriate. Requested Prescriptions Pending Prescriptions Disp Refills hydrOXYzine (VISTARIL) 50 MG Capsule [Pharmacy Med Name: hydrOXYzine Pamoate 50 MG Oral Capsule] 90Capsule 0 Sig: Take 1 Capsule by mouth every 6 hours as needed for Anxiety. Not Delegated - Off Protocol Failed - 08/25/2022 2:15 PM Failed - This refill cannot be delegated Passed - Visit with relevant provider in past 12 months or upcoming 90 days Recent Visits Date Type Provider Dept 07/28/22 Office Visit Yusra Salazar MD [facility] 04/26/22 Office Visit Yusra Salazar MD [facility] 03/25/22 Office Visit Elle Marshall PAC [facility] 02/05/22 Office Visit Sabine Ramirez APRN, WOODWORKER [facility] Showing recent visits within past 365 days and meeting all other requirements Future Appointments Date Type Provider Dept 10/27/22 Appointment Yusra Salazar MD [facility] [place] Showing future appointments within next 90 days and meeting all other requirements tiZANidine (ZANAFLEX) 4 MG Tablet [Pharmacy Med Name: tiZANidine HCl 4 MG Oral Tablet] 90 Tablet 0 Sig: TAKE 1 TABLET BY MOUTH THREE TIMES DAILY Not Delegated - Muscle Relaxants Protocol Failed - 08/25/2022 2:15 PM Failed - This refill cannot be delegated Failed - ALT less than 90 and AST less than 55 on record in past 12 months SGOT (AST) Date Value Ref Range Status 04/05/2022 74 (H) <=32 U/L Final SGPT (ALT) Date Value Ref Range Status 04/05/2022 48 (H) <=41 U/L Final Passed - Visit with relevant provider in past 12 months or upcoming 90 days Recent Visits Date Type Provider Dept 07/28/22 Office Visit Yusra Salazar MD [facility] 04/26/22 Office Visit Yusra Salazar MD [facility] 03/25/22 Office Visit Elle Marshall PAC [facility] 02/05/22 Office Visit Sabine Ramirez APRN, [facility] [place] Showing recent visits within past 365 days and meeting all other requirements Future Appointments Date Type Provider Dept 10/27/22 Appointment Yusra Salazar MD [facility] Showing future appointments within next 90 days and meeting all other requirements TAL MEDIA INTERN documented in this encounter Plan of Treatment Upcoming Encounters Date Type Department Care Team (Late st Contact Info) Description 05/30/2025 1:00 PM DIGITAL MEDIA INTERN Office Visit [facility] Oncology Services [address] [place] [address] Juan Felix MD [address] [place] [address] Discharge Disposition: Discharged to home or Selfcare documented as of this encounter Goals Goal Patient Goal Type Associated Problems Recent Progress Patient-Stated? Author [facility] On track(2021 4:08 PM CDT) Yes Yoly Zarco LCSW Note: I just need to be able to cope with all this that is going on. Goal Reviewed with: patient today Readiness to change: Ready to change Department associated with goal: [facility] Steps to achieve goal: [...] Ready to change Department associated with goal: [facility] Steps to achieve goal: [...] Total Score: 0 04/26/20 22 2:16 PM DIGITAL MEDIA INTERN documented as of this encounter Care Teams Court Worker Relationship Specialty Start Date End Date Yusra Salazar MD PCP - General Family Medicine 06/21/21 08/09/23 Provider, None [place] PCP - General 08/10/23 09/28/23 Walt Gage DO [facility] [facility] [place] [address] PCP - General Internal Medicine 09/29/23 Yusra Salazar MD Family Medicine 06/21/21 10/13/23 Landry Maria MD [address] [place] [address] Consulting Physician Radiation Oncology 06/26/19 Juan Felix MD [address] [place] [address] Consulting Physician Medical Oncology 06/26/19 Annika Hartmann MD [address] [place] [address] Consulting Physician General Surgery 06/26/19 Michelle Liu III, MD [address] [place] [address] Consulting Physician Urology 12/06/22 Yoan Sharma MD [address] [place] [address] Consulting Physician Neurology 07/26/23 Kareen Koenig APRN, WOODWORKER [address] [place] [address] Nurse Practitioner Advanced Practice Nurse 10/14/22 documented as of this encounter
--- OUTSIDE RECORDS SUMMARY | 2025-04-29 15:38 | XMS_ITS | Encounter Summary ---
Author Organization [facility] Address [address] [place] [address] Phone Care Team Providers Care Script Artist Name Role Phone Landry Maria MD Unavailable [phone] Juan Felix MD Unavailable [phone] Annika Hartmann MD Unavailable [phone] Noe ALCARAZ MD, Courtney Unavailable Yoan Sharma MD Unavailable Kareen Koenig APRN, [facility] Unavailable Walt Gage DO Primary Care Provider Reason for Visit * Reason Comments Medication Refill Encounter Details Date Type Department Care Team (Late st Contact Info) Description 03/16/2024 Refill [facility] - [facility] [address] [place] [address] [place] [address] [place] [address] Medication Refill Social History Tobacco Use Types [...] Sex Assigned at Female 07/08/2023 8:53 PM STOCK WORKER Legal Sex Female 10:43 PM CDT Gender Identity Female 07/08/2023 8:53 PM STOCK WORKER Sexual Orientation Straight 07/08/2023 8: 59 PM STOCK WORKER 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 Not on file documented as of this encounter Plan of Treatment Upcoming Encounters Date Type Department Care Team (Late st Contact Info) Description 05/30/2025 1:00 PM STOCK WORKER Office Visit [facility] Oncology Services [address] [place] [address] Juan Felix MD [address] [place] [address] Discharge Disposition: Discharged to home or Selfcare [...] track(07/01/ 2022 4:08 PM CDT) Yoly Roe, DEICER REPAIRER PNEUMATIC Note: Dodie will manage depression and anxiety [...] Total Score: 0 04/26/20 22 2:16 PM STOCK WORKER documented as of this encounter Care Teams Script Artist Relationship Specialty Start Date End Date Walt Gage DO [facility] [place] [address] PCP - General Internal Medicine 09/29/23 Landry Maria MD [address] [place] [address] Consulting Physician Radiation Oncology 06/26/19 Juan Felix MD [address] [place] [address] Consulting Physician Medical Oncology 06/26/19 Annika Hartmann MD [address] [place] [address] Consulting Physician General Surgery 06/26/19 Michelle Liu III, MD [address] [place] [address] Consulting Physician Urology 12/06/22 Yoan Sharma MD [address] [place] [address] Consulting Physician Neurology 07/26/23 Kareen Koenig APRN, JACQUARD LOOM FIXER [address] [place] [address] Nurse Practitioner Advanced Practice Nurse 10/14/22 documented as of this encounter
--- OUTSIDE RECORDS SUMMARY | 2025-04-29 15:38 | XMS_ITS | Clinical Summary ---
Author Organization [facility] Address [address] [place] [address] Phone Care Team Providers Care Line Assembler Name Role Phone Unavailable Primary Care Provider Unavailabl e Social History Tobacco Use Types Packs/Day Years Used Date Smoking Tobacco: Never Assessed Comments Unknown Sex and Gender Information Value Date Recorded Sex Assigned at Not on file Legal Sex Female 4:24 AM SR. VENDOR MANAGEMENT ASSOCIATE Gender Identity Not on file Sexual Orientation Not on file Plan of Treatment Health Maintenance Due Date Last Done Comments DTAP/TDAP/TD VACCINES (1 - Tdap) 12/27/1986 HEPATITIS B VACCINES (1 of 3 - 19+ 3-dose series) 12/18 HPV/Cotest (21-29) 12/27/1988 CERVICAL CANCER SCREENING 12/27/1997 HPV/Cotest (30-65) 12/27/1997 PAP SMEAR 12/27/1997 BREAST CANCER SCREENING 2007 COLORECTAL SCREENING 12/27/2012 Colorectal Cancer Screening 12/27/2012 FIT-DNA Q 3 years 12/27/2012 FIT/FOBT Q 1 year 12/27/2012 Flex Sig/CT Colonography Q 5 years 12/27/2012 ZOSTER VACCINE (1 of 2) 12/27/2017 INFLUENZA VACCINE (#1) 2025
--- OUTSIDE RECORDS SUMMARY | 2025-04-29 15:38 | XMS_ITS | Encounter Summary ---
Author Organization [facility] Address [address] [place] [address] Phone Care Team Providers Care Ritual Circumciser Name Role Phone Yusra Salazar MD Primary Care Provider Yusra Salazar MD Unavailable Landry Maria MD Unavailable Juan Felix MD Unavailable [phone] Annika Hartmann MD Unavailable [phone] Noe ALCARAZ MD, Michelle Unavailable [phone] Yoan Sharma MD Unavailable [phone] Provider, None Primary Care Provider UnavailKareen Humphreys APRN, SYNTHETIC FILAMENT EXTRUDER Unavailable Walt Gage DO Primary Care Provider Reason for Visit * Reason Comments Medication Refill Encounter Details Date Type Department Care Team (Late st Contact Info) Description 09/29/2022 Refill [facility] Family [facility] [address] [place] [id number] [place] [address] [place] [address] Medication Refill Social History Tobacco Use Types [...] Sex Assigned at Female 07/08/2023 8:53 PM DOOR PANELER Legal Sex Female 10:43 PM CDT Gender Identity Female 07/08/2023 8:53 PM DOOR PANELER Sexual Orientation Straight 07/08/2023 8: 59 PM DOOR PANELER Occupation Industry Job Start Date Job End Date [employer] Not on file Not on file Not on file COVID-19 Exposure Response Date Recorded In the last 10 days, have yo u been in contact with someone who was confirmed or suspected to have Coronavirus/COVID-19? No / Unsure 08/30/2022 3:10 PM CDT documented as of this encounter Miscellaneous Notes * Telephone Encounter - Yaima Bruno RN - 09/30/2022 8:57 AM CDT Medication failed the protocol, provider to review and approve the medication order if appropriate. Requested Prescriptions Pending Prescriptions Disp Refills hydrOXYzine (VISTARIL) 50 MG Capsule [Pharmacy Med Name: hydrOXYzine Pamoate 50 MG Oral Capsule] 90Capsule 0 Sig: TAKE 1 CAPSULE BY MOUTH EVERY 6 HOURS NEEDED FOR ANXIETY Not Delegated - Off Protocol Failed - 09/29/2022 2:25 PM Failed - This refill cannot be delegated Passed - Visit with relevant provider in past 12 months or upcoming 90 days Recent Visits Date Type Provider Dept 07/28/22 Office Visit Yusra Salazar MD [facility] 04/26/22 Office Visit Yusra Salazar MD [facility] 03/25/22 Office Visit Elle Marshall PAC [facility] 02/05/22 Office Visit Sabine Ramirez, GERIATRIC NURSING ASSISTANT, SYNTHETIC FILAMENT EXTRUDER [facility] Show[facility] recent visits within past 365 days and meeting all other requirements Future Appointments Date Type Provider Dept 10/27/22 Appointment Yusra Salazar MD [facility] Showing future appointments within next 90 days and meeting all other requirements documented in this encounter Plan of Treatment Upcoming Encounters Date Type Department Care Team (Late st Contact Info) Description 05/30/2025 1:00 PM DOOR PANELER Office Visit [facility] Oncology Services [address] [place] [address] Juan Felix MD [address] [place] [address] Discharge Disposition: Discharged to home or Selfcare [...] Ready to change Department associated with goal: [facility] Steps to [...] Ready to change Department associated with goal: [facility] Steps to [...] Total Score: 0 04/26/20 22 2:16 PM DOOR PANELER documented as of this encounter Care Teams Ritual Circumciser Relationship Specialty Start Date End Date Yusra Salazar MD PCP - General Family Medicine 06/21/21 08/09/23 Provider, [facility] PCP - General 08/10/23 09/28/23 Walt Gage DO [address] [place] [address] PCP - General Internal Medicine 09/29/23 Yusra Salazar MD Family Medicine 06/21/21 10/13/23 Landry Maria MD [address] [place] [address] Consulting Physician Radiation Oncology 06/26/19 Juan Felix MD [address] [place] [address] Consulting Physician Medical Oncology 06/26/19 Annika Hartmann MD [address] [place] [address] Consulting Physician General Surgery 06/26/19 Michelle Liu III, MD [address] [place] [address] Consulting Physician Urology 12/06/22 Yoan Sharma MD [address] [place] [address] Consulting Physician Neurology 07/26/23 Kareen Koenig APRN, SYNTHETIC FILAMENT EXTRUDER [address] [place] [address] Nurse Practitioner Advanced Practice Nurse 10/14/22 documented as of this encounter
--- OUTSIDE RECORDS SUMMARY | 2025-04-29 15:38 | XMS_ITS | Encounter Summary ---
Author Organization [facility] Address [address] [place] [address] Phone Care Team Providers Care Cloth Printer Name Role Phone Yusra Salazar MD Primary Care Provider Yusra Salazar MD Primary Care Provider Yusra Salazar MD Unavailable Landry Maria MD Unavailable [phone] Juan Felix MD Unavailable [phone] Annika Hartmann MD Unavailable [phone] Noe ALCARAZ MD, Courtney Unavailable [phone] Yoan Sharma MD Unavailable [phone] Provider, None Primary Care Provider UnavailKareen Humphreys APRN, SENIOR SOFTWARE TESTER Unavailable Walt Gage DO Primary Care Provider Reason for Visit * Reason Comments Medication Refill Encounter Details Date Type Department Care Team (Late st Contact Info) Description 04/08/2021 [facility] [address] [place] [address] Juan Felix MD [address] [place] [address] Medication Refill Social History Tobacco Use Types [...] Sex Assigned at Female 07/08/2023 8:53 PM RUSSET REPAIRER Legal Sex Female 10:43 PM CDT Gender Identity Female 07/08/2023 8:53 PM RUSSET REPAIRER Sexual Orientation Straight 07/08/2023 8: 59 PM RUSSET REPAIRER 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 No / Unsure 03/31/2021 8:21 AM CDT documented as of this encounter Miscellaneous Notes * Telephone Encounter - Petra Anderson RN - 04/08/2021 3:53 PM CDT Refilled Venlafaxine documented in this encounter Plan of Treatment Upcoming Encounters Date Type Department Care Team (Late st Contact Info) Description 05/30/2025 1:00 PM RUSSET REPAIRER Office Visit [facility] Oncology Services [address] [place] [id number] Juan Felix MD [address] [place] [address] Discharge Disposition: Discharged to home or Selfcare documented as of this encounter Goals Goal Patient Goal Type Associated Problems Recent Progress Patient-Stated? Author [facility] On track(2021 4:08 PM CDT) Yes Yoly Zarco LCSW Note: I just need to be able to cope with all this that is going on. Goal Reviewed with: patient today Readiness to change: Ready to change Department associated with goal: [facility] Steps to achieve goal: [...] individual session for at least 4 months. [facility] On track(2021 4:08 PM CDT) No Yoly Zarco LCSW Note: Dodie will manage depression and anxiety more effectively to have reduction of anxiety and depression symptoms. Goal Reviewed with: patient today Readiness to change: Ready to change Department associated with goal: [facility] Steps to achieve goal: [...] 19 06/21/2021 06/21/2021 07/11/2021 12:1 6 AM RUSSET REPAIRER COVID - 19 Confirmed 06/21/2021 06/21/2021 022 12:16 AM RUSSET REPAIRER Respiratory Rule Out - RPA 08/08/2022 08/08/2022 0 08/08/2022 3:34 PM RUSSET REPAIRER Influenza 08/08/2022 08/08/2022 08/15/2022 12:1 6 AM RUSSET REPAIRER Assessment Noted Time PHQ-9 Depression Total Score: 25 021 5:00 PM CDT documented as of this encounter Care Teams Cloth Printer Relationship Specialty Start Date End Date Yusra Salazar MD PCP - General Family Medicine 02/15/19 06/20/21 Yusra Salazar MD PCP - General Family Medicine 06/21/21 08/09/23 Provider, [facility] PCP - General 08/10/23 09/28/23 Walt Gage DO [address] [place] [address] PCP - General Internal Medicine 09/29/23 Yusra Salazar MD Family Medicine 06/21/21 10/13/23 Landry Maria MD [address] [place] [address] Consulting Physician Radiation Oncology 06/26/19 Juan Felix MD [address] [place] [address] Consulting Physician Medical Oncology 06/26/19 Annika Hartmann MD [address] [place] [address] Consulting Physician General Surgery 06/26/19 Michelle Liu III, MD [address] [place] [address] Consulting Physician Urology 12/06/22 Yoan Sharma MD [address] [place] [address] Consulting Physician Neurology 07/26/23 Kareen Koenig APRN, SENIOR SOFTWARE TESTER [address] [place] [address] Nurse Practitioner Advanced Practice Nurse 10/14/22 documented as of this encounter
--- OUTSIDE RECORDS SUMMARY | 2025-04-29 15:38 | XMS_ITS | Encounter Summary ---
Author Organization [facility] Address [address] [place] [address] Phone Care Team Providers Care Photo Checker Name Role Phone Landry Maria MD Unavailable Juan Felix MD Unavailable [phone] Annika Hartmann MD Unavailable [phone] Noe ALCARAZ MD, Courtney Unavailable Yoan Sharma MD Unavailable Kareen Koenig APRN, [facility] Unavailable aWlt Gage DO Primary Care Provider Reason for Visit * Reason Comments Medication Refill Encounter Details Date Type Department Care Team (Late st Contact Info) Description 01/12/2024 Refill [facility] [address] [place] [address] [place] [address] [place] [address] Medication Refill Social History Tobacco Use Types [...] Sex Assigned at Female 07/08/2023 8:53 PM PROCUREMENT INTERN Legal Sex Female 10:43 PM CDT Gender Identity Female 07/08/2023 8:53 PM PROCUREMENT INTERN Sexual Orientation Straight 07/08/2023 8: 59 PM PROCUREMENT INTERN 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 Not on file documented as of this encounter Plan of Treatment Upcoming Encounters Date Type Department Care Team (Late st Contact Info) Description 05/30/2025 1:00 PM PROCUREMENT INTERN Office Visit [facility] Oncology Services [address] [place] [address] Juan Felix MD [address] [place] [address] Discharge Disposition: Discharged to home or Selfcare [...] Ready to change Department associated with goal: [facility] Steps to [...] track(07/01/ 2022 4:08 PM CDT) Yoly Roe, EDITOR BOOK Note: Dodie will manage depression and anxiety more effectively to have reduction of anxiety and depression symptoms. Goal Reviewed with: patient today Readiness to change: Ready to change Department associated with goal: [facility] Steps to [...] Total Score: 0 04/26/20 22 2:16 PM PROCUREMENT INTERN documented as of this encounter Care Teams Photo Checker Relationship Specialty Start Date End Date Walt Gage DO [facility] [place] [address] PCP - General Internal Medicine 09/29/23 Landry Maria MD [address] [place] [address] Consulting Physician Radiation Oncology 06/26/19 Juan Felix MD [address] [place] [address] Consulting Physician Medical Oncology 06/26/19 Annika Hartmann MD [address] [place] [address] Consulting Physician General Surgery 06/26/19 Michelle Liu III, MD [address] [place] [address] Consulting Physician Urology 12/06/22 Yoan Sharma MD [address] [place] [address] Consulting Physician Neurology 07/26/23 Kareen Koenig APRN, CELLULAR PHONE REPAIRER [address] [place] [address] Nurse Practitioner Advanced Practice Nurse 10/14/22 documented as of this encounter
--- OUTSIDE RECORDS SUMMARY | 2025-04-29 15:38 | XMS_ITS | Encounter Summary ---
Author Organization [facility] Address [address] [place] [address] Phone Care Team Providers Care It Business Process Architect Name Role Phone Yusra Salazar MD Primary Care Provider Yusra Salazar MD Unavailable [phone] Landry Maria MD Unavailable Juan Felix MD Unavailable [phone] Annika Hartmann MD Unavailable [phone] Noe ALCARAZ MD, Michelle Unavailable [phone] Yoan Sharma MD Unavailable [phone] Provider, None Primary Care Provider UnavailKareen Humphreys APRN, TEACHERS ASSISTANT Unavailable Walt Gage DO Primary Care Provider Reason for Visit * Reason Comments Medication Refill Encounter Details Date Type Department Care Team (Late st Contact Info) Description 10/10/2022 Refill [facility] [address] [place] [id number] [place] [address] [place] [address] Medication Refill Social History Tobacco Use Types [...] Sex Assigned at Female 07/08/2023 8:53 PM VARNISHER PLASTICOATER Legal Sex Female 10:43 PM CDT Gender Identity Female 07/08/2023 8:53 PM VARNISHER PLASTICOATER Sexual Orientation Straight 07/08/2023 8: 59 PM VARNISHER PLASTICOATER 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 Requested Prescriptions Pending Prescriptions Disp Refills tiZANidine (ZANAFLEX) 4 MG Tablet [Pharmacy Med Name: tiZANidine HCl 4 MG Oral Tablet] 90 Tablet 0 Sig: TAKE 1 TABLET BY MOUTH THREE TIMES DAILY Not Delegated - Muscle Relaxants Protocol Failed - 10/10/2022 6:35 PM Failed - This refill cannot be [...] [place] 03/25/22 Office Visit Elle Marshall PAC [facility] [place] 02/05/22 Office Visit Sabine Ramirez APRN, TEACHERS ASSISTANT [facility] [place] Showing recent visits within past 365 days and meeting all other requirements Future Appointments Date Type Provider Dept 10/27/22 Appointment Yusra Salazar MD [facility] [place] Showing future appointments within next 90 days and meeting all other requirements documented in this encounter Plan of Treatment Upcoming Encounters Date Type Department Care Team (Late st Contact Info) Description 05/30/2025 1:00 PM VARNISHER PLASTICOATER Office Visit [facility] Oncology Services [address] [place] [address] Juan Felix MD [address] [place] [address] Discharge Disposition: Discharged to home or Selfcare [...] to change Department associated with goal: [facility] Steps to [...] to change Department associated with goal: [facility] Steps to [...] Total Score: 0 04/26/20 22 2:16 PM VARNISHER PLASTICOATER documented as of this encounter Care Teams It Business Process Architect Relationship Specialty Start Date End Date Yusra Salazar MD PCP - General Family Medicine 06/21/21 08/09/23 Provider, [facility] PCP - General 08/10/23 09/28/23 Walt Gage DO [address] [place] [id number] PCP - General Internal Medicine 09/29/23 Yusra Salazar MD Family Medicine 06/21/21 10/13/23 Landry Maria MD [address] [place] [address] Consulting Physician Radiation Oncology 06/26/19 Juan Felix MD [address] [place] [address] Consulting Physician Medical Oncology 06/26/19 [place] [address] [place] [address] Consulting Physician General Surgery 06/26/19 Michelle Liu III, MD [address] [place] [address] Consulting Physician Urology 12/06/22 Yoan Sharma MD [address] [place] [address] Consulting Physician Neurology 07/26/23 Kareen Koenig APRN, TEACHERS ASSISTANT [address] [place] [address] Nurse Practitioner Advanced Practice Nurse 10/14/22 documented as of this encounter
--- OUTSIDE RECORDS SUMMARY | 2025-04-29 15:38 | XMS_ITS | Encounter Summary ---
Author Organization [facility] Address [address] [place] [address] Phone Care Team Providers Care Group Work Program Aide Name Role Phone Landry Maria MD Unavailable Juan Felix MD Unavailable [phone] Annika Hartmann MD Unavailable Noe ALCARAZ MD, Courtney Unavailable [phone] Yoan Sharma MD Unavailable Kareen Keonig APRN, ASSISTED LIVING CARE MANAGER Unavailable Walt Gage DO Primary Care Provider Reason for Visit * Reason Comments Medication Refill Encounter Details Date Type Department Care Team (Late st Contact Info) Description 02/06/2025 Refill [facility] - [place] [address] [place] [address] Kareen Koenig APRN, ASSISTED LIVING CARE MANAGER [address] [place] [address] Medication Refill Social History Tobacco Use Types [...] Sex Assigned at Female 07/08/2023 8:53 PM LENS BLANK GAUGER Legal Sex Female 10:43 PM CDT Gender Identity Female 07/08/2023 8:53 PM LENS BLANK GAUGER Sexual Orientation Straight 07/08/2023 8: 59 PM LENS BLANK GAUGER 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 documented in this encounter Plan of Treatment Upcoming Encounters Date Type Department Care Team (Late st Contact Info) Description 05/30/2025 1:00 PM LENS BLANK GAUGER Office Visit [facility] Oncology Services [address] [place] [address] Juan Felix MD [address] [place] [address] Discharge Disposition: Discharged to home or Selfcare [...] Ready to change Department associated with goal: [facility] Steps [...] Ready to change Department associated with goal: [facility] Steps [...] Total Score: 0 04/26/20 22 2:16 PM LENS BLANK GAUGER documented as of this encounter Care Teams Group Work Program Aide Relationship Specialty Start Date End Date Walt Gage DO [facility] [facility] [address] [place], [place] [id number] PCP - General Internal Medicine 09/29/23 Landry Maria MD [address] [place] [address] Consulting Physician Radiation Oncology 06/26/19 Juan Felix MD [address] [place] [address] Consulting Physician Medical Oncology 06/26/19 Annika Hartmann MD [address] [place] [address] Consulting Physician General Surgery 06/26/19 Michelle Liu III, MD [address] [place] [address] Consulting Physician Urology 12/06/22 Yoan Sharma MD [address] [place] [address] Consulting Physician Neurology 07/26/23 Kareen Koenig APRN, ASSISTED LIVING CARE MANAGER [address] [place] [address] Nurse Practitioner Advanced Practice Nurse 10/14/22 documented as of this encounter
--- OUTSIDE RECORDS SUMMARY | 2025-04-29 15:38 | XMS_ITS | Encounter Summary ---
Author Organization [facility] Address [address] [place] [address] Phone Care Team Providers Care Footwear Machinery Instructor Name Role Phone Yusra Salazar MD Primary Care Provider Yusra Salazar MD Unavailable [phone] Landry Maria MD Unavailable [phone] Juan Felix MD Unavailable [phone] Annika Hartmann MD Unavailable [phone] Noe ALCARAZ MD, Michelle Unavailable [phone] Yoan Sharma MD Unavailable [phone] Provider, None Primary Care Provider UnavailKareen Humphreys APRN, ORTHOPEDIC RADIOLOGIC TECHNOLOGIST Unavailable Walt Gage DO Primary Care Provider Reason for Visit * Reason Comments Medication Refill Encounter Details Date Type Department Care Team (Late st Contact Info) Description 05/24/2022 Refill [facility] [address] [place] [address] Madelyn Kelly MD [address] [place] [address] Medication Refill Social History Tobacco Use Types [...] Sex Assigned at Female 07/08/2023 8:53 PM BEADING SAWYER Legal Sex Female 10:43 PM CDT Gender Identity Female 07/08/2023 8:53 PM BEADING SAWYER Sexual Orientation Straight 07/08/2023 8: 59 PM BEADING SAWYER 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 No / Unsure 04/26/2022 2:04 PM BEADING SAWYER documented as of this encounter Miscellaneous Notes * Telephone Encounter - Lianet Mujica RN - 05/25/2022 2:24 PM CST Pharmacy requesting refill of: Requested Prescriptions Pending Prescriptions Disp Refills ??? ondansetron (ZOFRAN-ODT) 4 MG TABLET DISPERSIBLE [Pharmacy Med Name: Ondansetron 4 MG Oral Tablet Disintegrating] 10 Tablet 0 Sig: DISSOLVE 1 TABLET IN MOUTH EVERY 8 HOURS NEEDED FOR NAUSEA Refill cannot be delegated. Refill pended,. Please sign if you approve. Last fill: 12/28/21 Patients last OV with GI: 11/26/21 Next Office Visit with GI: n/a ING SAWYER documented in this encounter Plan of Treatment Upcoming Encounters Date Type Department Care Team (Late st Contact Info) Description 05/30/2025 1:00 PM BEADING SAWYER Office Visit [facility] Oncology Services [address] [place] [address] Juan Felix MD [address] [place] [address] Discharge Disposition: Discharged to home or Selfcare [...] Ready to change Department associated with goal: [facility] Steps [...] Ready to change Department associated with goal: [facility] Steps [...] RPA 08/08/2022 08/08/2022 0 08/08/2022 3:34 PM BEADING SAWYER Influenza 08/08/2022 08/08/2022 08/15/2022 12:1 6 AM BEADING SAWYER Assessment Noted Time PHQ-9 Depression Total Score: 0 04/26/20 22 2:16 PM BEADING SAWYER documented as of this encounter Care Teams Footwear Machinery Instructor Relationship Specialty Start Date End Date Yusra Salazar MD PCP - General Family Medicine 06/21/21 08/09/23 Provider, [facility] PCP - General 08/10/23 09/28/23 Walt Gage DO [address] [place] [address] [address] [place], [place] [phone] PCP - General Internal Medicine 09/29/23 Yusra Salazar MD Family Medicine 06/21/21 10/13/23 Landry Maria MD [address] [place] [address] Consulting Physician Radiation Oncology 06/26/19 Juan Felix MD [address] [place] [address] Consulting Physician Medical Oncology 06/26/19 Annika Hartmann MD [address] [place] [address] Consulting Physician General Surgery 06/26/19 Michelle Liu III, MD [address] [place] [address] Consulting Physician Urology 12/06/22 Yoan Sharma MD [address] [place] [address] Consulting Physician Neurology 07/26/23 Kareen Koenig APRN, ORTHOPEDIC RADIOLOGIC TECHNOLOGIST [address] [place] [address] Nurse Practitioner Advanced Practice Nurse 10/14/22 documented as of this encounter
--- OUTSIDE RECORDS SUMMARY | 2025-04-29 15:38 | XMS_ITS | Encounter Summary ---
Author Organization [facility] Address [address] [place] [address] Phone Care Team Providers Care Underpresser Hand Name Role Phone Landry Maria MD Unavailable [phone] Juan Felix MD Unavailable [phone] Annika Hartmann MD Unavailable [phone] Noe ALCARAZ MD, Courtney Unavailable Yoan Sharma MD Unavailable Kareen Koenig APRN, CAFE ATTENDANT Unavailable Walt Gage DO Primary Care Provider Reason for Visit * Reason Comments Medication Refill Encounter Details Date Type Department Care Team (Late st Contact Info) Description 04/28/2024 Refill [facility] - [place] [address] [place] [address] Kareen Koenig APRN, CAFE ATTENDANT [address] [place] [address] Medication Refill Social History Tobacco Use Types [...] Sex Assigned at Female 07/08/2023 8:53 PM COMMANDING OFFICER HOMICIDE SQUAD Legal Sex Female 10:43 PM CDT Gender Identity Female 07/08/2023 8:53 PM COMMANDING OFFICER HOMICIDE SQUAD Sexual Orientation Straight 07/08/2023 8: 59 PM COMMANDING OFFICER HOMICIDE SQUAD 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 ANDING OFFICER HOMICIDE SQUAD documented in this encounter Plan of Treatment Upcoming Encounters Date Type Department Care Team (Late st Contact Info) Description 05/30/2025 1:00 PM COMMANDING OFFICER HOMICIDE SQUAD Office [facility] Oncology Services [address] [place] [address] Juan Felix MD [address] [place] [address] Discharge Disposition: Discharged to home or Selfcare [...] Ready to change Department associated with goal: [facility] Steps to [...] Ready to change Department associated with goal: [facility] Steps to [...] Total Score: 0 04/26/20 22 2:16 PM COMMANDING OFFICER HOMICIDE SQUAD documented as of this encounter Care Teams Underpresser Hand Relationship Specialty Start Date End Date Walt Gaeg DO [facility] [facility] [address] PCP - General Internal Medicine 09/29/23 Landry Maria MD [address] [place] [address] Consulting Physician Radiation Oncology 06/26/19 Juan Felix MD [address] [place] [address] Consulting Physician Medical Oncology 06/26/19 Annika Hartmann MD [address] [place] [address] Consulting Physician General Surgery 06/26/19 Michelle Liu III, MD [address] [place] [address] Consulting Physician Urology 12/06/22 Yoan Sharma MD [address] [place] [address] Consulting Physician Neurology 07/26/23 Kareen Koenig APRN, CAFE ATTENDANT [address] [place] [address] Nurse Practitioner Advanced Practice Nurse 10/14/22 documented as of this encounter
--- OUTSIDE RECORDS SUMMARY | 2025-04-29 15:38 | XMS_ITS | Encounter Summary ---
Author Organization [facility] Address [address] [place] [address] Phone Care Team Providers Care Tank Farm Attendant Name Role Phone Yusra Salazar MD Primary Care Provider Yusra Salazar MD Unavailable Landry Maria MD Unavailable Juan Felix MD Unavailable Annika Hartmann MD Unavailable [phone] Noe ALCARAZ MD, Michelle Unavailable [phone] Yoan Sharma MD Unavailable [phone] Provider, None Primary Care Provider UnavailKareen Humphreys APRN, CHIEF QUALITY OFFICER Unavailable Walt Gage DO Primary Care Provider Reason for Visit * Reason Comments Medication Refill Encounter Details Date Type Department Care Team (Late st Contact Info) Description 07/19/2023 Refill [facility] [address] [place] [id number] Elle Marshall [facility] [address] [place] [address] Medication Refill Social History Tobacco Use Types [...] Sex Assigned at Female 07/08/2023 8:53 PM HEALTH SERVICE WORKER Legal Sex Female 10:43 PM CDT Gender Identity Female 07/08/2023 8:53 PM HEALTH SERVICE WORKER Sexual Orientation Straight 07/08/2023 8: 59 PM HEALTH SERVICE WORKER 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 Disp: 90 Tablet ? Refills: 0 Signed by: Donaldo Stephens APRN, CHIEF QUALITY OFFICER TH SERVICE WORKER documented in this encounter Plan of Treatment Upcoming Encounters Date Type Department Care Team (Late st Contact Info) Description 05/30/2025 1:00 PM HEALTH SERVICE WORKER [facility] [address] [place] [id number] Juan Felix MD [address] [place] [address] Discharge Disposition: Discharged to home or Selfcare [...] Ready to change Department associated with goal: [facility] Steps to [...] Ready to change Department associated with goal: [facility] Steps to [...] Total Score: 0 04/26/20 22 2:16 PM HEALTH SERVICE WORKER documented as of this encounter Care Teams Tank Farm Attendant Relationship Specialty Start Date End Date Yusra Salazar MD PCP - General Family Medicine 06/21/21 08/09/23 Provider, None [place] PCP - General 08/10/23 09/28/23 Walt Gage DO [facility] [place] [address] PCP - General Internal Medicine 09/29/23 Yusra Salazar MD Family Medicine 06/21/21 10/13/23 Landry Maria MD [address] [place] [address] Consulting Physician Radiation Oncology 06/26/19 Juan Felix MD [address] [place] [address] Consulting Physician Medical Oncology 06/26/19 Annika Hartmann MD [address] [place] [address] Consulting Physician General Surgery 06/26/19 Michelle Liu III, MD [address] [place] [address] Consulting Physician Urology 12/06/22 Yoan Sharma MD [address] [place] [address] Consulting Physician Neurology 07/26/23 Kareen Koenig APRN, CHIEF QUALITY OFFICER [address] [place] [address] Nurse Practitioner Advanced Practice Nurse 10/14/22 documented as of this encounter
--- OUTSIDE RECORDS SUMMARY | 2025-04-29 15:39 | XMS_ITS | Clinical Summary ---
Author Organization [facility] Address [address] [place] [address] Care Team Providers Care Engineering Officer Name Role Phone Yusra Salazar MD Primary Care Provider [phone] Source Comments [facility],non-owned Affiliates and Associated Physician Practices is amultiple site organization consisting of ambulatory clinics and hospital sitesin [place], [place], [place] and [place]. This disclosure is being madepursuant to the Care Everywhere program and may not contain all information available regarding this patient. Last updated 18.[facility] Allergies Active Allergy Reactions Criticality Noted Date Comments Nsaids Other Low 10/27/[address] MOLINA DOES NOT WANT HER TO TAKE NSAIDS, HAD BLEEDING DUODENAL ULCER 2019 Medications * Be aware that medications may not be up to date on this document. Alwaysverify current medications with the patient. hydrOXYzine pamoate (VISTARIL) 50 MG capsule Take 25 mg by mouth as needed Active SUMAtriptan (IMITREX) 100 MG tablet Take 1 (one) tablet by mouth as needed Active gabapentin (NEURONTIN) 800 MG tablet Take 1 (one) tablet by mouth 3 times daily 2 01/03/20 19 Active metoprolol succinate XL 24hr (TOPROL XL) 100 MG tablet Take 1 (one) tablet by mouth once daily 1 12/20/19 19 Active ondansetron, disintegrating, (Zofran ODT) 4 MG tablet Take 1 (one) tablet by mouth every 8 hours as needed 07/24/19 19 Active Azelastine HCl 137 MCG/SPRAY SOLN Monroe 2 sprays into each nostril 2 times daily 02/17/20 20 Active tamoxifen (NOLVADEX) 20 MG tablet Take 1 (one) tablet by mouth once daily 03/12/20 20 Active meclizine (ANTIVERT) 25 MG tablet meclizine 25 mg tablet 04/29/20 20 Active lidocaine (XYLOCAINE) 5 % ointment Apply to affected area 2 times daily 01/28/20 21 Active pantoprazole EC (Protonix) 40 MG tablet Take 1 (one) tablet by mouth once daily 07/28/19 22 Active triamcinolone acetonide (Kenalog) 0.1 % creamIndication s:Rash Apply to affected area 2 times daily 45 g 1 07/22/19 23 Active Additional Information Patient not taking.Reported on 10/25/2023 venlafaxine XR 24hr (Effexor XR) 150 MG capsule Take 1 (one) capsule by mouth once daily 07/22/19 23 Active venlafaxine XR 24hr (Effexor XR) 75 MG capsule Take 1 (one) capsule by mouth once daily 11/10/19 23 Active rOPINIRole (Requip) 1 MG tablet Take 1 (one) tablet by mouth at bedtime 06/23/19 23 Active busPIRone (Buspar) 5 MG tablet Take 1 (one) tablet by mouth 3 times daily 02/01/20 23 Active clopidogrel (plaVIX) 75 MG tablet Take 1 (one) tablet by mouth once daily 30 tablet 11 12/02/19 23 Active dicyclomine (Bentyl) 20 MG tablet Take 1 (one) tablet by mouth 2 times daily 01/12/20 23 Active fluticasone propionate (Flonase) 50 MCG/ACT nasal spray Monroe 1 (one) spray into the nose once daily 03/22/20 23 Active tiZANidine (Zanaflex) 4 MG tablet Take 1 (one) tablet by mouth 3 times daily 03/07/20 23 Active ixekizumab (Taltz) 80 MG/ML auto-injector pen Inject 1 mL subcutaneously every 28 days . Maintenance. 1 mL 5 03/20/20 24 Active allopurinol (Zyloprim) 100 MG tabletIndicatio ns:Gout, unspecified cause, unspecified chronicity, unspecified site TAKE 1 TABLET BY MOUTH ONCE DAILY AT 9 AM 90 tablet 01/11/20 25 Active hydroxychloroqu ine (Plaquenil) 200 MG tablet TAKE 1 TABLET BY MOUTH TWICE DAILY AT 9 AM AND 5 PM 180 tablet 01/11/20 25 Active Active Problems Problem Noted Date Diagnosed Date Malignant neoplasm of overla pping sites of right breast in female, estrogen receptor positive 01/31/2019 Cancer Staging:Clinical stage from 01/31/2019:Stage IA(cT1, cN0, cM0, G2, ER+, ME+, HER2-) - Signed by Alee Garcia MD on 05/11/2020 Pathologic stage from 04/10/2019:Stage IA(pT1c, pN0(sn), cM0, G2, ER+, ME+, HER2-, Oncotype DX score: 11) - Signed by Alee Garcia MD on 05/11/2020 Overview (05/11/2020): Right, upper outer, grade 2/3 IDC. T1cN0(i-)M0, stage IA. ER pos 95% (strong), ME pos 95% (strong), Her-2 neg (1+ on IHC), ki-67 10% Core bx with perineural invasion S/p 04/10/2019 partial mastectomy/SLN bx ([facility] at [facility]): 1.6 cm grade 2/3 IDC (3,2,1). Report does not mention whether LVI or not. Margin neg, <1mm. 1 neg node OncotypeDx with score of 11 Abnormal mammogram 01/17/2019 Encounters Date Type Department Care Team Description 04/06/2025 Refill [facility] - Rheumatology [address] [place], [place] [id number] Gisela Vasquez MD Refill Request from Last 3 Months Family History Medical History Relation Name Comments Cancer - Skin, Non Melanoma Father Cancer - Pancreatic Maternal Uncle Cancer - Skin, Non Melanoma Mother Lymphoma Mother Relation Name Status Comments Father Maternal Uncle Mother Social History Tobacco Use Types Packs/Day Years Used Date Smoking Tobacco: Never Passive Smoke Exposure: Never Smokeless Tobacco: Never Tobacco Cessation:Counseling Given: Not Answered Alcohol Use Standard Drinks/Week Comments Not Currently 0 (1 standard drink = 0.6 oz pur e alcohol) PHQ-2 Answer Date Recorded Patient Health Questionnaire-2 Score 0 10/25/2023 Comments No Sex and Gender Information Value Date Recorded Sex Assigned at Female 10/19/2023 5:53 AM CDT Legal Sex Female 9:44 AM CDT Gender Identity Female 10/19/2023 5:53 AM CDT Sexual Orientation Not on file Last Filed Vital Signs Vital Sign Reading Time Taken Comments Blood Pressure 112/77 03/22/2024 11:22 AM CDT Pulse 93 03/22/2024 11:22 AM CDT Temperature 36.1 C (97 F) 03/22/2024 11:22 AM CDT Respiratory Rate 17 10/25/2023 1:29 PM CDT Oxygen Saturation 95% 03/22/2024 11:22 AM CDT Inhaled Oxygen Concentration - - Weight 104.3 kg (230 lb) 03/22/2024 11:22 AM CDT Height 170.2 cm (5' 7) 03/22/2024 11:22 AM CDT Body Mass Index 36.02 03/22/2024 11:22 AM CDT Plan of Treatment Upcoming Encounters Date Type Department Care Team (Late st Contact Info) Description 05/13/2025 9:30 AM LAB ANIMAL TECHNICIAN Appointment [facility] [address] [place] [address] 05/13/2025 10:00 AM LAB ANIMAL TECHNICIAN Office Visit [facility] - General Surgery [address] [place] [address] Annika Hartmann MD [address] [facility] [address] [place] [address] Health Maintenance Due Date Last Done Comments COLOGUARD (AGES 45-75) - COLON CA SCREENING 1967 COLON MONITORING 1967 COLONOSCOPY - COLON CA SCREENING 1967 CT COLONOGRAPHY - COLON CA SCREENING 1967 Colorectal Cancer Screening 1967 FIT - COLON CA SCREENING 1967 FLEX SIG - COLON CA SCREENING 1967 COVID-19 VACCINE (#1) 12/27/1972 HIV SCREENING 12/27/1982 DTAP/TDAP/TD VACCINES (1 - Tdap) 12/27/1986 HEPATITIS B VACCINE (1 of 3 - 19+ 3-dose series) 12/27/1986 PNEUMOCOCCAL VACCINE 50+ (1 of 1 - PCV) 12/27/2017 ZOSTER VACCINE (1 of 2) 12/27/2017 DEPRESSION SCREENING 06/20/2024 10/25/2023, 07/02/2022, 05/28/2022 INFLUENZA VACCINE (#1) 2025 9, 06/01/2016, 03/13/2013 MAMMOGRAM 03/22/2026 03/22/2024, 10/2022, 03/25/2022, Additional history exists SCREENING FOR DIABETES 03/13/2027 03/13/2024, 2018 LIPID TESTING 09/28/2028 09/29/2023 HEPATITIS C SCREENING Completed 03/13/2024 , 07/02/2022, 09/17/2016 HIB VACCINE Aged Out No longer eligi ble based on patient's age to complete this topic HPV VACCINE Aged Out No longer eligi ble based on patient's age to complete this topic MENINGOCOCCAL (Group B) VACCINE SHARED DECISION-MAKING Aged Out No longer eligible based on patient's age to complete this topic MENINGOCOCCAL GROUPS A/C/Y/W VACCINE Aged Out No longer eligible based on patient's age to complete this topic Medical Devices Implanted Type Area Joy Loading Machine Operator Device Identifier Shelf Expiration Date Model / Serial / Lot Id Biopsy St 13cm Eviva Securmark Implanted:Qty: 1 on 01/31/2019 by Enma Gillette MD at [facility] Right: Breast Hologic 09/26/2019 SMARK-EVIVA - [id number] Procedures Procedure Name Priority Date/Time Associated Diagnosis Comments MAMMO BILAT SCREENING W KEVON Routine 03/22/2024 10:57 AM CDT Malignant neoplasm of overlapping sites of right breast in female, estrogen receptor positive HEPATITIS SCREEN ACUTE ([facility]) Routine 03/13/2024 4:02 PM CDT Psoriatic arthritis Encounter for other specified special examinations COMPREHENSIVE METABOLIC PANEL Routine 03/13/2024 4:01 PM CDT Psoriatic arthritis from Last 3 Months or Most Recently Relevant to Health Maintenance Results * MAMMO BILAT SCREENING W KEVON (03/22/2024 10:57 AM CDT) Anatomical Region Laterality Modality Breast Bilateral Mammography 03/22/2024 10:5 9 AM CDT Impressions 03/22/2024 11:17 AM CDT : Benign mammogram, without evidence of malignancy. Status post right breast conservation therapy. RECOMMENDATION: Screening mammography in one year, pending no interval breast concerns. Patient was notified of the results at the time of her exam and they will see Dr. Hartmann in the breast clinic today. Patient will also receive the exam results by lay letter. OVERALL ASSESSMENT: BI-RADS CATEGORY 2: BENIGN. Report drafted by Fabio Paulino MD (residential treatment staff). Fan Blue MD (residential treatment staff) and Maury GAVIRIALUIS (breast imaging fellow) also assisted in the interpretation of this study. I, Diana Garcia MD, FACR have personally reviewed and interpreted this examination/study. > Interpreting Provider: Diana Gacria MD, FACR on 03/22/2024 11:17 AM Narrative 03/22/2024 11:17 AM CDT EXAMINATIONS: BILATERAL DIGITAL SCREENING MAMMOGRAM AND BILATERAL BREAST TOMOSYNTHESIS LOCATION: [facility] EXAM DATE: 03/22/2024 HISTORY: Screening. 58-year-old female s/p right breast conservation therapy for stage IA right breast cancer in March 2019. COMPARISON: Comparison is made to prior mammograms back to 2019. TECHNIQUE: Tomosynthesis (3D) and reconstructed synthetic 2-D images acquired and reviewed in the bilateral craniocaudal and mediolateral oblique projections. A total of 6 images obtained. Scar marker placed on the right breast. Transpara AI was utilized in the interpretation. BREAST PARENCHYMAL COMPOSITION: Category B: There are scattered areas of fibroglandular density. FINDINGS: There are no suspicious findings or evidence of malignancy on mammography. Changes of right breast conservation therapy. There is no significant change from the prior. us Annika A Hartmann MD MAMMO ORDERABLES Final Resu lt * HEPATITIS SCREEN ACUTE ([facility]) (03/13/2024 4:02 PM CDT) Hepatitis A Virus Antibody IgM Non Reactive Non Reactive [facility] INSURANCE BILL Hepatitis B Virus Surface Antigen Non Reactive Non Reactive [facility] INSURANCE BILL Hepatitis B Core Virus Antibody IgM Non Reactive Non Reactive [facility] INSURANCE BILL Hepatitis C Antibody Non Reactive Non Reactive [facility] INSURANCE BILL Comment: Non Reactive - Antibodies to Hepatitis C virus (HCV) were no t detected, result does not exclude early acute HCV infection. Performed at: [facility] [address] [place], [place] [id number] Clinical Resource Coordinator: Juan J Inman PhD, Phone: [phone] Interpretation Comment [facility] INSURANCE BILL Comment: Not infected with HCV unless early or acute infection is suspected (which may be delayed in an immunocompromised individual), or other evidence exists to indicate HCV infection. Blood BLOOD SPECIMEN / Unknown 03/13/2024 4:02 PM CDT 03/13/2024 Narrative [facility] INSURANCE BILL - 03/13/2024 11:07 PM CDT Performed at: [place] [address] [place], [place] [id number] Clinical Resource Coordinator: Kapil Valdes [facility], Phone: [phone] us Gisela Vasquez MD LAB - CHEMISTRY ORDERABLES Final Result [facility] INSURANCE BILL [address] [place] [address] * COMPREHENSIVE METABOLIC PANEL (03/13/2024 4:01 PM CDT) Glucose 96 70 - 99 mg/dL [facility] INSURANCE BILL BUN 13 6 - 24 mg/dL [facility] INSURANCE BILL Creatinine 0.94 0.57 - 1.00 mg/dL [facility] INSURANCE BILL eGFR by CKD-EPI 71 >59 mL/min/1.7 3 [facility] INSURANCE BILL BUN/Creatinine Ratio 14 9 - 23 [facility] INSURANCE BILL Sodium 141 134 - 144 mmol/L [facility] INSURANCE BILL Potassium 4.0 3.5 - 5.2 mmol/L [facility] INSURANCE BILL Chloride 106 96 - 106 mmol/L [facility] INSURANCE BILL CO2 21 20 - 29 mmol/L [facility] INSURANCE BILL Calcium 10.0 8.7 - 10.2 mg/dL [facility] INSURANCE BILL Protein Total 6.8 6.0 - 8.5 g/dL [facility] INSURANCE BILL Albumin 4.1 3.8 - 4.9 g/dL [facility] INSURANCE BILL Globulin Total 2.7 1.5 - 4.5 g/dL [facility] INSURANCE BILL Bilirubin Total <0.2 0.0 - 1.2 mg/dL [facility] INSURANCE BILL Alkaline Phosphatase 85 44 - 121 IU/L [facility] INSURANCE BILL AST 19 0 - 40 IU/L [facility] INSURANCE BILL ALT 16 0 - 32 IU/L [facility] INSURANCE BILL Blood BLOOD SPECIMEN / Unknown 03/13/2024 4:01 PM CDT 03/13/2024 Narrative [facility] INSURANCE BILL - 03/14/2024 7:12 AM CDT Performed at: 01 - [facility] [address] [id number] Clinical Resource Coordinator: Juan J Inman PhD, Phone: [phone] Gisela Vasquez MD LAB - CHEMISTRY ORDERABLES Final Result Performing Organization Address City/State/[facility] Co de Phone Number [facility] INSURANCE BILL [address] [place] [address] from Last 3 Months or Most Recently Relevant to Health Maintenance Insurance [place] [address] Care Teams Engineering Officer Relationship Specialty Start Date End Date Yusra Salazar MD PCP - General Family Medicine 01/17/19
--- OUTSIDE RECORDS SUMMARY | 2025-04-29 15:39 | XMS_ITS | Encounter Summary ---
Author Organization [facility] Address [address] [place] [address] Phone Care Team Providers Care Construction Job Cost Estimator Name Role Phone Yusra Salazar MD Primary Care Provider Yusra Salazar MD Unavailable [phone] Landry Maria MD Unavailable Juan Felix MD Unavailable [phone] Annika Hartmann MD Unavailable [phone] Noe ALCARAZ MD, Michelle Unavailable [phone] Yoan Sharma MD Unavailable [phone] Provider, None Primary Care Provider UnavailKareen Humphreys APRN, FAST FOOD SHIFT LEAD Unavailable Walt Gage DO Primary Care Provider Reason for Visit * Reason Comments Medication Refill Encounter Details Date Type Department Care Team (Late st Contact Info) Description 12/26/2022 Refill [facility] [address] [place] [id number] [place] [address] [place] [address] Medication Refill Social History Tobacco Use Types [...] Sex Assigned at Female 07/08/2023 8:53 PM BANDOLEER STRAIGHTENER STAMPER Legal Sex Female 10:43 PM CDT Gender Identity Female 07/08/2023 8:53 PM BANDOLEER STRAIGHTENER STAMPER Sexual Orientation Straight 07/08/2023 8: 59 PM BANDOLEER STRAIGHTENER STAMPER 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 No / Unsure 12/26/2022 1:55 PM CDT documented as of this encounter Miscellaneous Notes * Telephone Encounter - Karis Johnston RN - 12/27/2022 10:37 AM CDT NOT a duplicate - 10 days supply Medication failed the protocol, provider to review and approve the medication order if appropriate. Requested Prescriptions Pending Prescriptions Disp Refills meclizine (ANTIVERT) 25 MG Tablet [Pharmacy Med Name: Meclizine HCl 25 MG Oral Tablet] 30 Tablet 0 Sig: TAKE 1 TABLET BY MOUTH THREE TIMES DAILY NEEDED FOR DIZZINESS Not Delegated - Off Protocol Failed - 12/26/2022 12:30 PM Failed - This refill cannot be delegated Passed - Visit with relevant provider in past 12 months or upcoming 90 days Recent Visits Date Type Provider Dept 11/09/22 Office Visit Yusra Salazar MD [facility] 07/28/22 Office Visit Yusra Salazar MD [facility] 04/26/22 Office Visit Yusra Salazar MD [facility] 03/25/22 Office Visit Elle Marshall, TRISHA [facility] 02/05/22 Office Visit Sabine Ramirez APRN, FAST FOOD SHIFT LEAD [facility] Showing recent visits within past 365 days and meeting all other requirements Future Appointments Date Type Provider Dept 02/09/23 Appointment Yusra Salazar MD [facility] Showing future appointments within next 90 days and meeting all other requirements documented in this encounter Plan of Treatment Upcoming Encounters Date Type Department Care Team (Late st Contact Info) Description 05/30/2025 1:00 PM BANDOLEER STRAIGHTENER STAMPER Office Visit [facility] Oncology Services [address] [place] [address] Juan Felix MD [address] [place] [address] Discharge Disposition: Discharged to home or Selfcare [...] Total Score: 0 04/26/20 22 2:16 PM BANDOLEER STRAIGHTENER STAMPER documented as of this encounter Care Teams Construction Job Cost Estimator Relationship Specialty Start Date End Date Yusra Salazar MD PCP - General Family Medicine 06/21/21 08/09/23 Provider, [facility] PCP - General 08/10/23 09/28/23 Walt Gage DO [address] [place] [address] [place], [place] [id number] PCP - General Internal Medicine 09/29/23 Yusra Salazar MD Family Medicine 06/21/21 10/13/23 Landry Maria MD [address] [place] [address] Consulting Physician Radiation Oncology 06/26/19 Juan Felix MD [address] [place] [address] Consulting Physician Medical Oncology 06/26/19 Annika Hartmann MD [address] [place] [address] Consulting Physician General Surgery 06/26/19 Michelle Liu III, MD [address] [place] [address] Consulting Physician Urology 12/06/22 Yoan Sharma MD [address] [place] [phone] Consulting Physician Neurology 07/26/23 Kareen Koenig APRN, FAST FOOD SHIFT LEAD [address] [place] [address] Nurse Practitioner Advanced Practice Nurse 10/14/22 documented as of this encounter
--- OUTSIDE RECORDS SUMMARY | 2025-04-29 15:39 | XMS_ITS | Encounter Summary ---
Author Organization [facility] Address [address] [place] [address] Phone Care Team Providers Care Tower Control Operator Name Role Phone Landry Maria MD Unavailable Juan Felix MD Unavailable [phone] Annika Hartmann MD Unavailable Noe ALCARAZ MD, Courtney Unavailable Yoan Sharma MD Unavailable [phone] Kareen Koenig APRN, ENGLISH COMPOSITION INSTRUCTOR Unavailable Walt Gage DO Primary Care Provider Reason for Visit * Reason Comments Medication Refill Encounter Details Date Type Department Care Team (Late st Contact Info) Description 10/13/2024 Refill [facility] Medicine - [place] [address] [place] [address] Donaldo Stephens APRN, ENGLISH COMPOSITION INSTRUCTOR [address] [address] Medication Refill Social History Tobacco Use Types [...] Sex Assigned at Female 07/08/2023 8:53 PM NICKEL PLANT OPERATOR Legal Sex Female 10:43 PM CDT Gender Identity Female 07/08/2023 8:53 PM NICKEL PLANT OPERATOR Sexual Orientation Straight 07/08/2023 8: 59 PM NICKEL PLANT OPERATOR 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 Not on file documented as of this encounter Miscellaneous Notes * Telephone Encounter - Karis Johnston RN - 10/15/2024 11:00 AM CDT PCP: Walt Gage DO documented in this encounter Plan of Treatment Upcoming Encounters Date Type Department Care Team (Late st Contact Info) Description 05/30/2025 1:00 PM NICKEL PLANT OPERATOR Office Visit [facility] On[facility] Services [address] [place] [address] Juan Felix MD [address] [place] [address] Discharge Disposition: Discharged to home or Selfcare [...] Ready to change Department associated with goal: [facility] Steps to [...] Ready to change Department associated with goal: [facility] Steps to [...] Total Score: 0 04/26/20 22 2:16 PM NICKEL PLANT OPERATOR documented as of this encounter Care Teams Tower Control Operator Relationship Specialty Start Date End Date Walt Gage DO [facility] [place], [place] [id number] PCP - General Internal Medicine 09/29/23 Landry Maria MD [address] [place] [address] Consulting Physician Radiation Oncology 06/26/19 Juan Felix MD [address] [place] [address] Consulting Physician Medical Oncology 06/26/19 Annika Hartmann MD [address] [place] [address] Consulting Physician General Surgery 06/26/19 Michelle Liu III, MD [address] [place] [address] Consulting Physician Urology 12/06/22 Yoan Sharma MD [address] [place] [address] Consulting Physician Neurology 07/26/23 Kareen Koenig APRN, ENGLISH COMPOSITION INSTRUCTOR [address] [place] [address] Nurse Practitioner Advanced Practice Nurse 10/14/22 documented as of this encounter
--- OUTSIDE RECORDS SUMMARY | 2025-04-29 15:39 | XMS_ITS | Encounter Summary ---
Author Organization [facility] Address [address] [place] [address] Phone Care Team Providers Care Weapons And Tactics Instructor Name Role Phone Yusra Salazar MD Primary Care Provider [phone] Yusra Salazar MD Unavailable Landry Maria MD Unavailable Juan Felix MD Unavailable [phone] Annika Hartmann MD Unavailable [phone] Noe ALCARAZ MD, Michelle Unavailable Yoan Sharma MD Unavailable [phone] Provider, None Primary Care Provider UnavailKareen Humphreys APRN, LOT ATTENDANT Unavailable Walt Gage DO Primary Care Provider Reason for Visit * Reason Comments Medication Refill Encounter Details Date Type Department Care Team (Late st Contact Info) Description 02/02/2022 Refill [facility] [address] [place] [id number] Elle Marshall [facility] [address] [place] [address] Medication Refill Social History Tobacco Use Types [...] Sex Assigned at Female 07/08/2023 8:53 PM DIVISION ORDER TECHNICIAN Legal Sex Female 10:43 PM CDT Gender Identity Female 07/08/2023 8:53 PM DIVISION ORDER TECHNICIAN Sexual Orientation Straight 07/08/2023 8 :59 PM DIVISION ORDER TECHNICIAN 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 No / Unsure 02/05/2022 12:04 PM CDT documented as of this encounter Miscellaneous Notes * Telephone Encounter - Karis Johnston RN - 02/03/2022 8:49 AM CDT Medication failed the protocol, provider to review and approve the medication order if appropriate. Requested Prescriptions Pending Prescriptions Disp Refills meclizine (ANTIVERT) 25 MG Tablet [Pharmacy Med Name: Meclizine HCl 25 MG Oral Tablet] 30 Tablet 0 Sig: TAKE 1 TABLET BY MOUTH THREE TIMES DAILY NEEDED FOR DIZZINESS Not Delegated - Off Protocol Failed - 02/02/2022 2:02 PM Failed - This refill cannot be delegated Passed - Visit with relevant provider in past 12 months or upcoming 90 days Recent Visits Date Type Provider Dept 07/09/21 Office Visit Yusra Salazar MD [facility] 05/28/21 Office Visit Elle Marshall PAC [facility] Showing recent visits within past 365 days and meeting all other requirements Future Appointments No visits were found meeting these conditions. Showing future appointments within next 90 days and meeting all other requirements documented in this encounter Plan of Treatment Upcoming Encounters Date Type Department Care Team (Late st Contact Info) Description 05/30/2025 1:00 PM DIVISION ORDER TECHNICIAN Office Visit [facility] Oncology Services [address] [place] [address] Juan Felix MD [address] [place] [address] Discharge Disposition: Discharged to home or Selfcare [...] Ready to change Department associated with goal: [facility] Steps [...] Ready to change Department associated with goal: [facility] Steps [...] RPA 08/08/2022 08/08/2022 0 08/08/2022 3:34 PM DIVISION ORDER TECHNICIAN Influenza 08/08/2022 08/08/2022 08/15/2022 12:1 6 AM DIVISION ORDER TECHNICIAN Assessment Noted Time PHQ-9 Depression Total Score: 25 021 5:00 PM CDT documented as of this encounter Care Teams Weapons And Tactics Instructor Relationship Specialty Start Date End Date Yusra Salazar MD PCP - General Family Medicine 06/21/21 08/09/23 Provider, [facility] PCP - General 08/10/23 09/28/23 Walt Gage DO [address] [place] [address] [place], [place] [id number] PCP - General Internal Medicine 09/29/23 Yusra Salazar MD Family Medicine 06/21/21 10/13/23 Landry Maria MD [address] [place], [place] [id number] Consulting Physician Radiation Oncology 06/26/19 Juan Felix MD [address] [place] [address] Consulting Physician Medical Oncology 06/26/19 Annika Hartmann MD [address] [place] [address] Consulting Physician General Surgery 06/26/19 Michelle Liu III, MD [address] [place] [address] Consulting Physician Urology 12/06/22 Yoan Sharma MD [address] [place] [address] Consulting Physician Neurology 07/26/23 Kareen Koenig APRN, LOT ATTENDANT [address] [place] [address] Nurse Practitioner Advanced Practice Nurse 10/14/22 documented as of this encounter
--- OUTSIDE RECORDS SUMMARY | 2025-04-29 15:39 | XMS_ITS | Encounter Summary ---
Author Organization [facility] Address [address] [place] [address] Phone Care Team Providers Care Heel Finisher Name Role Phone Yusra Salazar MD Primary Care Provider Yusra Salazar MD Unavailable [phone] Landry Maria MD Unavailable Juan Felix MD Unavailable [phone] Annika Hartmann MD Unavailable [phone] Noe ALCARAZ MD, Michelle Unavailable [phone] Yoan Sharma MD Unavailable [phone] Provider, None Primary Care Provider UnavailKareen Humphreys APRN, ACETYLENE BURNER Unavailable Walt Gage DO Primary Care Provider Reason for Visit * Reason Comments Medication Refill Encounter Details Date Type Department Care Team (Late st Contact Info) Description 11/16/2022 Refill [facility] [address] [place] [id number] [place] [address] [place] [address] Medication Refill Social History Tobacco Use Types [...] Sex Assigned at Female 07/08/2023 8:[address] SUPERVISOR Legal Sex Female 10:43 PM CDT Gender Identity Female 07/08/2023 8:[address] SUPERVISOR Sexual Orientation Straight 07/08/2023 8: [address] SUPERVISOR 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 No / Unsure 11/09/2022 10:53 AM CDT documented as of this encounter Miscellaneous Notes * Telephone Encounter - Karis Johnston RN - 11/17/2022 10:51 AM CDT Medication failed the protocol, provider to review and approve the medication order if appropriate. Requested Prescriptions Pending Prescriptions Disp Refills meclizine (ANTIVERT) 25 MG Tablet [Pharmacy Med Name: Meclizine HCl 25 MG Oral Tablet] 30 Tablet 0 Sig: TAKE 1 TABLET BY MOUTH THREE TIMES DAILY NEEDED FOR DIZZINESS Not Delegated - Off Protocol Failed - 11/16/2022 1:45 PM Failed - This refill cannot be delegated Passed - Visit with relevant provider in past 12 months or upcoming 90 days Recent Visits Date Type Provider Dept 11/09/22 Office Visit Yusra Salazar MD [facility] 07/28/22 Office Visit Yusra Salazar MD [facility] 04/26/22 Office Visit Yusra Salazar MD [facility] 03/25/22 Office Visit Elle Marshall PAC [facility] 02/05/22 Office Visit Sabine Ramirez APRN, ACETYLENE BURNER [facility] Showing recent visits within past 365 days and meeting all other requirements Future Appointments Date Type Provider Dept 02/09/23 Appointment [facility]usra Salazar MD [facility] Show[facility] future appointments within next 90 days and meeting all other requirements documented in this encounter Plan of Treatment Upcoming Encounters Date Type Department Care Team (Late st Contact Info) Description 05/30/2025 1:[address] SUPERVISOR Office Visit [facility] Oncology Services [address] [place] [address] Juan Felix MD [address] [place] [address] Discharge Disposition: Discharged to home or Selfcare [...] Total Score: 0 04/26/20 22 2:[address] SUPERVISOR documented as of this encounter Care Teams Heel Finisher Relationship Specialty Start Date End Date Yusra Salazar MD PCP - General Family Medicine 06/21/21 08/09/23 Provider, [facility] PCP - General 08/10/23 09/28/23 Walt Gage DO [address] [place] [id number] PCP - General Internal Medicine 09/29/23 Yusra Salazar MD Family Medicine 06/21/21 10/13/23 Landry Maria MD [address] [place] [address] Consulting Physician Radiation Oncology 06/26/19 Juan Felix MD [address] [place] [address] Consulting Physician Medical Oncology 06/26/19 Annika Hartmann MD [address] [place] [address] Consulting Physician General Surgery 06/26/19 Michelle Liu III, MD [address] [place] [address] Consulting Physician Urology 12/06/22 Yoan Sharma MD [address] [place] [address] Consulting Physician Neurology 07/26/23 Kareen Koenig APRN, ACETYLENE BURNER [address] [place] [address] Nurse Practitioner Advanced Practice Nurse 10/14/22 documented as of this encounter
--- OUTSIDE RECORDS SUMMARY | 2025-04-29 15:39 | XMS_ITS | Encounter Summary ---
Author Organization [facility] Address [address] [place] [address] Phone Care Team Providers Care Advanced Manager Name Role Phone Yusra Salazar MD Primary Care Provider Yusra Salazar MD Unavailable Landry Maria MD Unavailable Juan Felix MD Unavailable [phone] Annika Hartmann MD Unavailable [phone] Noe ALCARAZ MD, Michelle Unavailable [phone] Yoan Sharma MD Unavailable [phone] Provider, None Primary Care Provider UnavailKareen Humphreys APRN, MANUFACTURING MECHANIC Unavailable Wlat Gage DO Primary Care Provider Reason for Visit * Reason Comments Medication Refill Encounter Details Date Type Department Care Team (Late st Contact Info) Description 08/26/2021 Refill [facility] [address] [place] [phone] [place] [address] [place] [address] Medication Refill Social History Tobacco Use Types [...] Sex Assigned at Female 07/08/2023 8:53 PM TURF KEEPER Legal Sex Female 10:43 PM CDT Gender Identity Female 07/08/2023 8:53 PM TURF KEEPER Sexual Orientation Straight 07/08/2023 8: 59 PM TURF KEEPER 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 No / Unsure 08/25/2021 12:24 PM TURF KEEPER documented as of this encounter Plan of Treatment Upcoming Encounters Date Type Department Care Team (Late st Contact Info) Description 05/30/2025 1:00 PM TURF KEEPER Office Visit [facility] Oncology Services [address] [place] [address] Juan Felix MD [address] [place] [address] Discharge Disposition: Discharged to home or Selfcare [...] RPA 08/08/2022 08/08/2022 0 08/08/2022 3:34 PM TURF KEEPER Influenza 08/08/2022 08/08/2022 08/15/2022 12:1 6 AM TURF KEEPER Assessment Noted Time PHQ-9 Depression Total Score: 25 021 5:00 PM CDT documented as of this encounter Care Teams Advanced Manager Relationship Specialty Start Date End Date Yusra Salazar MD PCP - General Family Medicine 06/21/21 08/09/23 Provider, None [place] PCP - General 08/10/23 09/28/23 Walt Gage DO [facility] [facility] [place] [address] PCP - General Internal Medicine 09/29/23 Yusra Salazar MD Family Medicine 06/21/21 10/13/23 Landry Maria MD [address] [place] [address] Consulting Physician Radiation Oncology 06/26/19 Juan Felix MD [address] [place] [address] Consulting Physician Medical Oncology 06/26/19 Annika Hartmann MD [address] [place] [address] Consulting Physician General Surgery 06/26/19 Michelle Liu III, MD [address] [place] [address] Consulting Physician Urology 12/06/22 Yoan Sharma MD [address] [place] [address] Consulting Physician Neurology 07/26/23 Kareen Koenig APRN, MANUFACTURING MECHANIC [address] [place] [address] Nurse Practitioner Advanced Practice Nurse 10/14/22 documented as of this encounter
--- OUTSIDE RECORDS SUMMARY | 2025-04-29 15:39 | XMS_ITS | Encounter Summary ---
Author Organization [facility] Address [address] [place] [address] Phone Care Team Providers Care Equip Maint Eng Name Role Phone Yusra Salazar MD Primary Care Provider Yusra Salazar MD Unavailable [phone] Landry Maria MD Unavailable Juan Felix MD Unavailable [phone] Annika Hartmann MD Unavailable [phone] Noe ALCARAZ MD, Michelle Unavailable [phone] Yoan Sharma MD Unavailable [phone] Provider, None Primary Care Provider UnavailKareen Humphreys APRN, PEOPLE MANAGER Unavailable Walt Gage DO Primary Care Provider Reason for Visit * Reason Comments Medication Refill Encounter Details Date Type Department Care Team (Late st Contact Info) Description 10/25/2022 Refill [facility] [address] [place] [phone] [place] [address] [place] [address] Medication Refill Social History Tobacco Use Types [...] Sex Assigned at Female 07/08/2023 8:53 PM TANDEM OPERATOR Legal Sex Female 10:43 PM CDT Gender Identity Female 07/08/2023 8:53 PM TANDEM OPERATOR Sexual Orientation Straight 07/08/2023 8: 59 PM TANDEM OPERATOR 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 No / Unsure 10/27/2022 7:04 PM CDT documented as of this encounter Miscellaneous Notes * Telephone Encounter - Karis Johnston RN - 10/26/2022 8:21 AM CDT Medication failed the protocol, provider to review and approve the medication order if appropriate. Requested Prescriptions Pending Prescriptions Disp Refills meclizine (ANTIVERT) 25 MG Tablet [Pharmacy Med Name: Meclizine HCl 25 MG Oral Tablet] 30 Tablet 0 Sig: TAKE 1 TABLET BY MOUTH THREE TIMES DAILY NEEDED FOR DIZZINESS Not Delegated - Off Protocol Failed - 10/25/2022 1:38 PM Failed - This refill cannot be delegated Passed - Visit with relevant provider in past 12 months or upcoming 90 days Recent Visits Date Type Provider Dept 07/28/22 Office Visit Yusra Salazar MD [facility] 04/26/22 Office Visit Yusra Salazar MD [facility] 03/25/22 Office Visit Elle Marshall PAC [facility] [place] 02/05/22 Office Visit Sabine Ramirez APRN, PEOPLE MANAGER [facility] [place] Showing recent visits within past 365 days and meeting all other requirements Future Appointments Date Type Provider Dept 10/27/22 [address] [facility] Showing future appointments within next 90 days and meeting all other requirements documented in this encounter Plan of Treatment Upcoming Encounters Date Type Department Care Team (Late st Contact Info) Description 05/30/2025 1:00 PM TANDEM OPERATOR Office Visit [facility] Oncology Services [address] [place] [address] Juan Felix MD [address] [place] [address] Discharge Disposition: Discharged to home or Selfcare [...] Total Score: 0 04/26/20 22 2:16 PM TANDEM OPERATOR documented as of this encounter Care Teams Equip Maint Eng Relationship Specialty Start Date End Date Yusra Salazar MD PCP - General Family Medicine 06/21/21 08/09/23 Provider, [facility] PCP - General 08/10/23 09/28/23 Walt Gage DO [address] [place] [address] [place] [address] PCP - General Internal Medicine 09/29/23 Yusra Salazar MD Family Medicine 06/21/21 10/13/23 Landry Maria MD [address] [place] [address] Consulting Physician Radiation Oncology 06/26/19 Juan Felix MD [address] [place] [address] Consulting Physician Medical Oncology 06/26/19 Annika Hartmann MD [address] [place] [address] Consulting Physician General Surgery 06/26/19 Michelle Liu III, MD [address] [place] [address] Consulting Physician Urology 12/06/22 Yoan Sharma MD [address] [place] [address] Consulting Physician Neurology 07/26/23 Kareen Koenig APRN, PEOPLE MANAGER [address] [place] [address] Nurse Practitioner Advanced Practice Nurse 10/14/22 documented as of this encounter
--- OUTSIDE RECORDS SUMMARY | 2025-04-29 15:39 | XMS_ITS | Encounter Summary ---
Author Organization [facility] Address [address] [place] [address] Phone Care Team Providers Care Body Artist Name Role Phone Yusra Salazar MD Primary Care Provider [phone] Yusra Salazar MD Unavailable Landry Maria MD Unavailable [phone] Juan Felix MD Unavailable [phone] Annika Hartmann MD Unavailable [phone] Noe ALCARAZ MD, Michelle Unavailable [phone] Yoan Sharma MD Unavailable [phone] Provider, None Primary Care Provider UnavailKareen Humphreys APRN, CUSTOMER ENGINEERING SPECIALIST Unavailable Walt Gage DO Primary Care Provider Reason for Visit * Reason Comments Medication Refill Encounter Details Date Type Department Care Team (Late st Contact Info) Description 12/18/2022 Refill [facility] [address] [place] [phone] [place] [address] [place] [address] Medication Refill Social History Tobacco Use Types [...] Sex Assigned at Female 07/08/2023 8:53 PM MANTEL CRAFTSMAN Legal Sex Female 10:43 PM CDT Gender Identity Female 07/08/2023 8:53 PM MANTEL CRAFTSMAN Sexual Orientation Straight 07/08/2023 8: 59 PM MANTEL CRAFTSMAN 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 No / Unsure 12/16/2022 6:42 PM CDT documented as of this encounter Miscellaneous Notes * Telephone Encounter - Abigail Barney RN - 12/20/2022 3:00 PM CDT PDMP 12-02-22 23 day supply, #90 Medication failed the protocol, provider to review and approve the medication order if appropriate. Requested Prescriptions Pending Prescriptions Disp Refills hydrOXYzine (VISTARIL) 50 MG Capsule [Pharmacy Med Name: hydrOXYzine Pamoate 50 MG Oral Capsule] 90Capsule 0 Sig: Take 1 Capsule by mouth every 6 hours as needed for Anxiety. Not Delegated - Off Protocol Failed - 12/18/2022 1:11 PM Failed - This refill cannot be delegated Passed - Visit with relevant provider in past 12 months or upcoming 90 days Recent Visits Date Type Provider Dept 11/09/22 Office Visit Yusra Salazar MD [facility] 07/28/22 Office Visit Yusra Salazar MD [facility] 04/26/22 Office Visit Yusra Salazar MD [facility] [place] 03/25/22 Office Visit Elle Marshall, TRIS[facility] [place] [place] 02/05/22 Office Visit Sabine Ramirez APRN, CUSTOMER ENGINEERING SPECIALIST [facility] [place] [place] Showing recent visits within past 365 days and meeting all other requirements Future Appointments Date Type Provider Dept 02/09/23 Appointment Yusra Salazar MD [facility] Showing future appointments within next 90 days and meeting all other requirements documented in this encounter Plan of Treatment Upcoming Encounters Date Type Department Care Team (Late st Contact Info) Description 05/30/2025 1:00 PM MANTEL CRAFTSMAN Office Visit [facility] Oncology Services [address] [place] [address] Juan Felix MD [address] [place] [address] Discharge Disposition: Discharged to home or Selfcare [...] Total Score: 0 04/26/20 22 2:16 PM MANTEL CRAFTSMAN documented as of this encounter Care Teams Body Artist Relationship Specialty Start Date End Date Yusra Salazar MD PCP - General Family Medicine 06/21/21 08/09/23 Provider, [facility] PCP - General 08/10/23 09/28/23 Walt Gage DO [address] [place] [address] [place] [address] PCP - General Internal Medicine 09/29/23 Yusra Salazar MD Family Medicine 06/21/21 10/13/23 Landry Maria MD [address] [place], [place] [id number] Consulting Physician Radiation Oncology 06/26/19 Juan Felix MD [address] [place] [address] Consulting Physician Medical Oncology 06/26/19 Annika Hartmann MD [address] [place] [address] Consulting Physician General Surgery 06/26/19 Michelle Liu III, MD #[address] [place] [address] Consulting Physician Urology 12/06/22 Yoan Sharma MD [address] [place] [address] Consulting Physician Neurology 07/26/23 Kareen Koenig APRN, CUSTOMER ENGINEERING SPECIALIST [address] [place] [address] Nurse Practitioner Advanced Practice Nurse 10/14/22 documented as of this encounter
--- OUTSIDE RECORDS SUMMARY | 2025-04-29 15:39 | XMS_ITS | Encounter Summary ---
Author Organization [facility] Address [address] [place] [address] Phone Care Team Providers Care Dry Folder Cloth Name Role Phone Yusra Salazar MD Primary Care Provider Yusra Salazar MD Unavailable [phone] Landry Maria MD Unavailable Juan Felix MD Unavailable [phone] Annika Hartmann MD Unavailable [phone] Noe ALCARAZ MD, Michelle Unavailable [phone] Yoan Sharma MD Unavailable [phone] Provider, None Primary Care Provider UnavailKareen Humphreys APRN, SINTER MACHINE OPERATOR Unavailable Walt Gage DO Primary Care Provider Reason for Visit * Reason Comments Medication Refill Encounter Details Date Type Department Care Team (Late st Contact Info) Description 12/09/2022 Refill [facility] [address] [place] [phone] [place] [address] [place] [address] Medication Refill Social History Tobacco Use Types [...] Sex Assigned at Female 07/08/2023 8:53 PM METAL DIE FINISHER Legal Sex Female 10:43 PM CDT Gender Identity Female 07/08/2023 8:53 PM METAL DIE FINISHER Sexual Orientation Straight 07/08/2023 8: 59 PM METAL DIE FINISHER 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 No / Unsure 12/06/2022 11:37 AM CDT documented as of this encounter Miscellaneous Notes * Telephone Encounter - Karis Johnston RN - 12/10/2022 5:03 PM CDT meclizine (ANTIVERT) 25 MG Tablet The original prescription was reordered on 12/10/2022 by Yusra Salazar MD. * Telephone Encounter - Karis Johnston RN - 12/10/2022 8:54 AM CDT duplicate documented in this encounter Plan of Treatment Upcoming Encounters Date Type Department Care Team (Late st Contact Info) Description 05/30/2025 1:00 PM METAL DIE FINISHER Office Visit [facility] Oncology Services [address] [place] [address] Juan Felix MD [address] [place] [address] Discharge Disposition: Discharged to home or Selfcare [...] Ready to change Department associated with goal: [facility] Steps to achieve [...] Ready to change Department associated with goal: [facility] Steps to achieve [...] Total Score: 0 04/26/20 22 2:16 PM METAL DIE FINISHER documented as of this encounter Care Teams Dry Folder Cloth Relationship Specialty Start Date End Date Yusra Salazar MD PCP - General Family Medicine 06/21/21 08/09/23 Provider, None [place] PCP - General 08/10/23 09/28/23 Walt Gage DO [address] [place] [address] [address] [place], [place] [phone] PCP - General Internal Medicine 09/29/23 Yusra Salazar MD Family Medicine 06/21/21 10/13/23 Landry Maria MD [address] [place] [address] Consulting Physician Radiation Oncology 06/26/19 Juan Felix MD [address] [place] [address] Consulting Physician Medical Oncology 06/26/19 Annika Hartmann MD [address] [place] [address] Consulting Physician General Surgery 06/26/19 Michelle Liu III, MD [address] [place] [address] Consulting Physician Urology 12/06/22 Yoan Sharma MD [address] [place] [address] Consulting Physician Neurology 07/26/23 Kareen Koenig APRN, SINTER MACHINE OPERATOR [address] [place] [address] Nurse Practitioner Advanced Practice Nurse 10/14/22 documented as of this encounter
--- OUTSIDE RECORDS SUMMARY | 2025-04-29 15:39 | XMS_ITS | Encounter Summary ---
Author Organization [facility] Address [address] [place] [address] Phone Care Team Providers Care Pit Furnace Melter Name Role Phone Yusra Salazar MD Primary Care Provider [phone] Yusra Salazar MD Primary Care Provider [phone] Yusra Salazar MD Unavailable [phone] aLndry Maria MD Unavailable [phone] Juan Felix MD Unavailable [phone] Annika Hartmann MD Unavailable [phone] Noe ALCARAZ MD, Courtney Unavailable [phone] Yoan Sharma MD Unavailable [phone] Provider, None Primary Care Provider UnavailKareen Humphreys APRN, OVERNIGHT CAREGIVER Unavailable Walt Gage DO Primary Care Provider Reason for Visit * Reason Comments Medication Refill Encounter Details Date Type Department Care Team (Late st Contact Info) Description [facility] [address] [place] [address] Juan Felix MD [address] [place] [address] Medication Refill Social History Tobacco Use Types [...] have received? 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 No / Unsure 02/04/2021 2:13 PM CDT documented as of this encounter Miscellaneous Notes * Telephone Encounter - Petra Anderson RN - 02/02/2021 1:36 PM CDT Tamoxifen refilled documented in this encounter Plan of Treatment Upcoming Encounters Date Type Department Care Team (Late st Contact Info) Description 05/30/2025 1:00 PM SUPERVISOR ENGINE ASSEMBLY Office [facility] [address] [place] [address] Juan Felix MD [address] [place] [address] Discharge Disposition: Discharged to home or Selfcare [...] session for at least 4 months. Behavioral [facility] Behavioral Health On track(2021 4:08 [...] 19 06/21/2021 06/21/2021 07/11/2021 12:1 6 AM SUPERVISOR ENGINE ASSEMBLY COVID - 19 Confirmed 06/21/2021 06/21/2021 022 12:16 AM SUPERVISOR ENGINE ASSEMBLY Respiratory Rule Out - RPA 08/08/2022 08/08/2022 0 08/08/2022 3:34 PM SUPERVISOR ENGINE ASSEMBLY Influenza 08/08/2022 08/08/2022 08/15/2022 12:1 6 AM SUPERVISOR ENGINE ASSEMBLY Assessment Noted Time PHQ-9 Depression Total Score: 25 04/20/2 021 5:00 PM CDT documented as of this encounter Care Teams Pit Furnace Melter Relationship Specialty Start Date End Date Yusra Salazar MD PCP - General Family Medicine 02/15/19 06/20/21 Yusra Salazar MD PCP - General Family Medicine 06/21/21 08/09/23 Provider, [facility] PCP - General 08/10/23 09/28/23 Walt Gage DO [address] [place] [address] [place], [place] [id number] PCP - General Internal Medicine 09/29/23 Yusra Salazar MD Family Medicine 06/21/21 10/13/23 Landry Maria MD [address] [place] [address] Consulting Physician Radiation Oncology 06/26/19 Juan Felix MD [address] [place] [address] Consulting Physician Medical Oncology 06/26/19 Annika Hartmann MD [address] [place] [address] Consulting Physician General Surgery 06/26/19 Michelle Liu III, MD [address] [place] [address] Consulting Physician Urology 12/06/22 Yoan Sharma MD [address] [place] [address] Consulting Physician Neurology 07/26/23 Kareen Koenig APRN, OVERNIGHT CAREGIVER [address] [place] [address] Nurse Practitioner Advanced Practice Nurse 10/14/22 documented as of this encounter
--- OUTSIDE RECORDS SUMMARY | 2025-04-29 15:39 | XMS_ITS | Encounter Summary ---
Author Organization [facility] Address [address] [place] [address] Phone Care Team Providers Care Gas Engine Operator Compressors Name Role Phone Landry Maria MD Unavailable [phone] Juan Felix MD Unavailable [phone] Annika Hartmann MD Unavailable Noe ALCARAZ MD, Courtney Unavailable [phone] Yoan Sharma MD Unavailable Kareen Koenig APRN, INSIDE UPHOLSTERER Unavailable Walt Gage DO Primary Care Provider Reason for Visit * Reason Comments Medication Refill Encounter Details Date Type Department Care Team (Late st Contact Info) Description 01/09/2025 Refill [facility] [place] [address] [place] [address] Kareen Koenig APRN, INSIDE UPHOLSTERER [address] [place] [address] Medication Refill Social History Tobacco Use Types [...] Sex Assigned at Female 07/08/2023 8:53 PM NAILING MACHINE FEEDER Legal Sex Female 10:43 PM CDT Gender Identity Female 07/08/2023 8:53 PM NAILING MACHINE FEEDER Sexual Orientation Straight 07/08/2023 8: 59 PM NAILING MACHINE FEEDER 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 documented in this encounter Plan of Treatment Upcoming Encounters Date Type Department Care Team (Late st Contact Info) Description 05/30/2025 1:00 PM NAILING MACHINE FEEDER Office Visit [facility] Oncology Services [address] [place] [phone] Juan Felix MD [address] [place] [address] Discharge Disposition: Discharged to home or Selfcare [...] to change Department associated with goal: [facility] Steps to achieve goal: [...] to change Department associated with goal: [facility] Steps to achieve goal: [...] Total Score: 0 04/26/20 22 2:16 PM NAILING MACHINE FEEDER documented as of this encounter Care Teams Gas Engine Operator Compressors Relationship Specialty Start Date End Date Walt Gage DO [facility] [facility] [place] [address] [place] [id number] PCP - General Internal Medicine 09/29/23 Landry Maria MD [address] [place] [address] Consulting Physician Radiation Oncology 06/26/19 Juan Felix MD [address] [place] [address] Consulting Physician Medical Oncology 06/26/19 Annika Hartmann MD [address] [place] [address] Consulting Physician General Surgery 06/26/19 Michelle Liu III, MD [address] [place] [address] Consulting Physician Urology 12/06/22 Yoan Sharma MD [address] [place] [address] Consulting Physician Neurology 07/26/23 Kareen Koenig APRN, INSIDE UPHOLSTERER [address] [place] [address] Nurse Practitioner Advanced Practice Nurse 10/14/22 documented as of this encounter
--- OUTSIDE RECORDS SUMMARY | 2025-04-29 15:39 | XMS_ITS | Encounter Summary ---
Author Organization [facility] Address [address] [place] [address] Phone Care Team Providers Care Excellence Specialist Name Role Phone Yusra Salazar MD Primary Care Provider [phone] Yusra Salazar MD Unavailable [phone] Landry Maria MD Unavailable Juan Felix MD Unavailable [phone] Annika Hartmann MD Unavailable [phone] Noe ALCARAZ MD, Michelle Unavailable [phone] Yoan Sharma MD Unavailable [phone] Provider, None Primary Care Provider UnavailKareen Humphreys APRN, CAD ADMINISTRATOR Unavailable Walt Gage DO Primary Care Provider Reason for Visit * Reason Comments Medication Refill Encounter Details Date Type Department Care Team (Late st Contact Info) Description 11/11/2022 Refill [facility] [address] [place] [phone] [place] [address] [place] [address] Medication Refill Social History Tobacco Use Types [...] Sex Assigned at Female 07/08/2023 8:53 PM PACKING MACHINE PILOT CAN ROUTER Legal Sex Female 10:43 PM CDT Gender Identity Female 07/08/2023 8:53 PM PACKING MACHINE PILOT CAN ROUTER Sexual Orientation Straight 07/08/2023 8: 59 PM PACKING MACHINE PILOT CAN ROUTER 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 No / Unsure 11/09/2022 10:53 AM CDT documented as of this encounter Miscellaneous Notes * Telephone Encounter - Karis Johnston RN - 11/11/2022 4:51 PM CDT Medication failed the protocol, provider to review and approve the medication order if appropriate. Requested Prescriptions Pending Prescriptions Disp Refills tiZANidine (ZANAFLEX) 4 MG Tablet [Pharmacy Med Name: tiZANidine HCl 4 MG Oral Tablet] 90 Tablet 0 Sig: TAKE 1 TABLET BY MOUTH THREE TIMES DAILY Not Delegated - Muscle Relaxants Protocol Failed - 11/11/2022 3:17 PM Failed - This refill cannot be [...] Dept 11/09/22 Office Visit Yusra Salazar MD [facility] [place] 07/28/22 Office Visit Yusra Salazar MD [facility] [place] 04/26/22 Office Visit Yusra Salazar MD [facility] [place] 03/25/22 Office Visit Elle Marshall, PAC [facility] [place] 02/05/22 Office Visit Sabine Ramirez APRN, CAD ADMINISTRATOR [facility] [place] Showing recent visits within past 365 days and meeting all other requirements Future Appointments Date Type Provider Dept 02/09/23 Appointment Yusra Salazar MD [facility] [place] Show[place] future appointments within next 90 days and meeting all other requirements documented in this encounter Plan of Treatment Upcoming Encounters Date Type Department Care Team (Late st Contact Info) Description 05/30/2025 1:00 PM PACKING MACHINE PILOT CAN ROUTER Office Visit [facility] Oncology Services [address] [place] [address] Juan Felix MD [address] [place] [address] Discharge Disposition: Discharged to home or Selfcare documented as of this encounter Goals Goal Patient Goal Type Associated Problems Recent Progress Patient-Stated? Author Behavioral Health Behavioral Health On track(2021 4:08 PM CDT) Yes Yoly Zarco, SALES EFFECTIVENESS MANAGER Note: I just need to be able to cope with all this that is going on. Goal Reviewed with: patient today Readiness to change: Ready to change Department associated with goal: [facility] Steps to achieve goal: [...] On track(2021 4:08 PM CDT) Yoly Roe, SALES EFFECTIVENESS MANAGER Note: Dodie will manage depression and anxiety more effectively to have reduction of anxiety and depression symptoms. Goal Reviewed with: patient today Readiness to change: Ready to change Department associated with goal: [facility] Steps to achieve goal: [...] Total Score: 0 04/26/20 22 2:16 PM PACKING MACHINE PILOT CAN ROUTER documented as of this encounter Care Teams Excellence Specialist Relationship Specialty Start Date End Date Yusra Salazar MD PCP - General Family Medicine 06/21/21 08/09/23 Provider, [facility] PCP - General 08/10/23 09/28/23 Walt Gage DO [address] [place] [address] [place] [address] PCP - General Internal Medicine 09/29/23 Yusra Salazar MD Family Medicine 06/21/21 10/13/23 Landry Maria MD [address] [place], [place] [address] Consulting Physician Radiation Oncology 06/26/19 Juan Felix MD [address] [place] [address] Consulting Physician Medical Oncology 06/26/19 Annika Hartmann MD [address] [place] [address] Consulting Physician General Surgery 06/26/19 Michelle Liu III, MD [address] [place] [address] Consulting Physician Urology 12/06/22 Yoan Sharma MD [address] [place] [address] Consulting Physician Neurology 07/26/23 Kareen Koenig APRN, CAD ADMINISTRATOR [address] [place] [address] Nurse Practitioner Advanced Practice Nurse 10/14/22 documented as of this encounter
--- OUTSIDE RECORDS SUMMARY | 2025-04-29 15:39 | XMS_ITS | Encounter Summary ---
Author Organization [facility] Address [address] [place] [id number] Phone Care Team Providers Care Exercise Specialist Name Role Phone Yusra Salazar MD Primary Care Provider Yusra Salazar MD Unavailable Landry Maria MD Unavailable Juan Felix MD Unavailable [phone] Annika Hartmann MD Unavailable [phone] Noe ALCARAZ MD, Michelle Unavailable [phone] Yoan Sharma MD Unavailable [phone] Provider, None Primary Care Provider UnavailKareen Humphreys APRN, CARDIOTHORACIC ICU RN Unavailable Walt Gage DO Primary Care Provider Reason for Visit * Reason Comments Medication Refill Encounter Details Date Type Department Care Team (Late st Contact Info) Description 12/07/2022 Refill [facility] [address] [place] [id number] [place] [address] [place] [address] Medication Refill Social History Tobacco Use Types [...] Sex Assigned at Female 07/08/2023 8:53 PM COMPLAINT ANALYST Legal Sex Female 10:43 PM CDT Gender Identity Female 07/08/2023 8:53 PM COMPLAINT ANALYST Sexual Orientation Straight 07/08/2023 8: 59 PM COMPLAINT ANALYST 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 No / Unsure 12/06/2022 11:37 AM CDT documented as of this encounter Miscellaneous Notes * Telephone Encounter - Karis Johnston RN - 12/07/2022 3:40 PM CDT Medication failed the protocol, provider to review and approve the medication order if appropriate. Requested Prescriptions Pending Prescriptions Disp Refills tiZANidine (ZANAFLEX) 4 MG Tablet [Pharmacy Med Name: tiZANidine HCl 4 MG Oral Tablet] 90 Tablet 0 Sig: TAKE 1 TABLET BY MOUTH THREE TIMES DAILY Not Delegated - Muscle Relaxants Protocol Failed - 12/07/2022 10:27 AM Failed - This refill cannot be [...] 11/09/22 Office Visit Yusra Salazar MD [facility] [place] 07/28/22 Office Visit Yusra Salazar MD [facility] [place] 04/26/22 Office Visit Yusra Salazar MD [facility] [place] 03/25/22 Office Visit Elle Marshall, PAC [facility] [place] 02/05/22 Office Visit Sabine Ramirez APRN, CARDIOTHORACIC ICU RN [facility] [place] Showing recent visits within past 365 days and meeting all other requirements Future Appointments Date Type Provider Dept 02/09/23 Appointment Yusra Salazar MD [facility] [place] Showing future appointments within next 90 days and meeting all other requirements documented in this encounter Plan of Treatment Upcoming Encounters Date Type Department Care Team (Late st Contact Info) Description 05/30/2025 1:00 PM COMPLAINT ANALYST Office Visit [facility] Oncology Services [address] [place] [address] Juan Felix MD [address] [place] [address] Discharge Disposition: Discharged to home or Selfcare documented as of this encounter Goals Goal Patient Goal Type Associated Problems Recent Progress Patient-Stated? Author Behavioral Health Behavioral Health On track(2021 4:08 PM CDT) Yes Yoly Zarco, PRIVATE DUTY NURSE Note: I just need to be able to cope with all this that is going on. Goal Reviewed with: patient today Readiness to change: Ready to change Department associated with goal: [facility] Steps to [...] On track(2021 4:08 PM CDT) Yoly Roe, PRIVATE DUTY NURSE Note: Dodie will manage depression and anxiety more effectively to have reduction of anxiety and depression symptoms. Goal Reviewed with: patient today Readiness to change: Ready to change Department associated with goal: [facility] Steps to [...] Total Score: 0 04/26/20 22 2:16 PM COMPLAINT ANALYST documented as of this encounter Care Teams Exercise Specialist Relationship Specialty Start Date End Date Yusra Salazar MD PCP - General Family Medicine 06/21/21 08/09/23 Provider, [facility] PCP - General 08/10/23 09/28/23 Walt Gage DO [address] [place] [address] [place] [address] PCP - General Internal Medicine 09/29/23 Yusra Salazar MD Family Medicine 06/21/21 10/13/23 Landry Maria MD [address] [place], [place] [address] Consulting Physician Radiation Oncology 06/26/19 Juan Felix MD [address] [place] [address] Consulting Physician Medical Oncology 06/26/19 Annika Hartmann MD [address] [place] [address] Consulting Physician General Surgery 06/26/19 Michelle Liu III, MD [address] [place] [address] Consulting Physician Urology 12/06/22 Yoan Sharma MD [address] [place] [address] Consulting Physician Neurology 07/26/23 Kareen Koenig APRN, CARDIOTHORACIC ICU RN [address] [place] [address] Nurse Practitioner Advanced Practice Nurse 10/14/22 documented as of this encounter
--- OUTSIDE RECORDS SUMMARY | 2025-04-29 15:39 | XMS_ITS | Encounter Summary ---
Author Organization [facility] Address [address] [place] [address] Phone Care Team Providers Care Systems Mechanic Name Role Phone Yusra Salazar MD Primary Care Provider Yusra Salazar MD Primary Care Provider Yusra Salazar MD Unavailable [phone] Landry Maria MD Unavailable [phone] Juan Felix MD Unavailable [phone] Annika Hartmann MD Unavailable [phone] Noe ALCARAZ MD, Courtney Unavailable [phone] Yoan Sharma MD Unavailable [phone] Provider, None Primary Care Provider UnavailKareen Humphreys APRN, MORTGAGE CLOSER Unavailable Walt Gage DO Primary Care Provider Reason for Visit * Reason Comments Medication Refill Encounter Details Date Type Department Care Team (Late st Contact Info) Description 10/09/2020 [facility] [address] [place] [address] Juan Felix MD [address] [place] [address] Medication Refill Social History Tobacco Use Types Packs/Day Years Used Date Smoking Tobacco: Never Smokeless Tobacco: Never Alcohol Use Standard Drinks/Week Comments No 0 (1 standard drink = 0.6 oz pur e alcohol) PHQ-2 Answer Date Recorded Total Score - Questions 1-9 25 09/19 Comments No Sex and Gender Information Value Date Recorded Sex Assigned at Female 07/08/2023 8:53 PM INSULATION PROFESSIONAL Legal Sex Female 10:43 PM CDT Gender Identity Female 07/08/2023 8:53 PM INSULATION PROFESSIONAL Sexual Orientation Straight 07/08/2023 8: 59 PM INSULATION PROFESSIONAL 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 No / Unsure 10/07/2020 3:58 PM CDT documented as of this encounter Miscellaneous Notes * Telephone Encounter - Petra Anderson RN - 10/09/2020 10:30 AM CDT Refilled Venlafaxine documented in this encounter Plan of Treatment Upcoming Encounters Date Type Department Care Team (Late st Contact Info) Description 05/30/2025 1:00 PM INSULATION PROFESSIONAL [facility] [address] [place] [address] Juan Felix MD [address] [place] [address] Discharge Disposition: Discharged to home or Selfcare [...] 19 06/21/2021 06/21/2021 07/11/2021 12:1 6 AM INSULATION PROFESSIONAL COVID - 19 Confirmed 06/21/2021 06/21/2021 022 12:16 AM INSULATION PROFESSIONAL Respiratory Rule Out - RPA 08/08/2022 08/08/2022 0 08/08/2022 3:34 PM INSULATION PROFESSIONAL Influenza 08/08/2022 08/08/2022 08/15/2022 12:1 6 AM INSULATION PROFESSIONAL Assessment Noted Time PHQ-9 Depression Total Score: 25 021 5:00 PM CDT documented as of this encounter Care Teams Systems Mechanic Relationship Specialty Start Date End Date Yusra Salazar MD PCP - General Family Medicine 02/15/19 06/20/21 Yusra Salazar MD PCP - General Family Medicine 06/21/21 08/09/23 Provider, [facility] PCP - General 08/10/23 09/28/23 Walt Gage DO [facility] [place] [address] PCP - General Internal Medicine 09/29/23 Yusra Salazar MD Family Medicine 06/21/21 10/13/23 Landry Maria MD [address] [place] [address] Consulting Physician Radiation Oncology 06/26/19 Juan Felix MD [address] [place] [address] Consulting Physician Medical Oncology 06/26/19 Annika Hartmann MD [address] [place] [address] Consulting Physician General Surgery 06/26/19 Michelle Liu III, MD [address] [place] [address] Consulting Physician Urology 12/06/22 Yoan Sharma MD [address] [place] [address] Consulting Physician Neurology 07/26/23 Kareen Koenig APRN, MORTGAGE CLOSER [address] [place] [address] Nurse Practitioner Advanced Practice Nurse 10/14/22 documented as of this encounter
--- OUTSIDE RECORDS SUMMARY | 2025-04-29 15:39 | XMS_ITS | Encounter Summary ---
Author Organization [facility] Address [address] [place] [address] Phone Care Team Providers Care Plastic Straightening Roll Operator Name Role Phone Yusra Salazar MD Primary Care Provider Yusra Salazar MD Unavailable Landry Maria MD Unavailable [phone] Juan Felix MD Unavailable [phone] Annika Hartmann MD Unavailable [phone] Noe ALCARAZ MD, Michelle Unavailable [phone] Yoan Sharma MD Unavailable [phone] Provider, None Primary Care Provider UnavailKareen Humphreys APRN, STEAM SHOVEL ENGINEER Unavailable Walt Gage DO Primary Care Provider Reason for Visit * Reason Comments Medication Refill Encounter Details Date Type Department Care Team (Late st Contact Info) Description 02/02/2022 Refill [facility] [address] [place] [id number] [place] [address] [place] [address] Medication Refill Social History Tobacco Use Types [...] Sex Assigned at Female 07/08/2023 8:53 PM TRAPEZE ARTIST Legal Sex Female 10:43 PM CDT Gender Identity Female 07/08/2023 8:53 PM TRAPEZE ARTIST Sexual Orientation Straight 07/08/2023 8: 59 PM TRAPEZE ARTIST 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 Showing future appointments within next 90 days and meeting all other requirements Passed - ALT less than 90 and AST less than 55 on record in past 12 months SGOT (AST) Date Value Ref Range Status 09/23/2021 53 (H) <=32 U/L Final SGPT (ALT) Date Value Ref Range Status 09/23/2021 44 (H) <=41 U/L Final hydrOXYzine (VISTARIL) 50 MG Capsule [Pharmacy Med Name: hydrOXYzine Pamoate 50 MG Oral Capsule] 90Capsule 0 Sig: TAKE 1 CAPSULE BY MOUTH THREE TIMES DAILY NEEDED FOR ANXIETY There is no refill protocol information for this order Azelastine HCl 137 MCG/SPRAY Solution [Pharmacy Med Name: Azelastine HCl 137 MCG/SPRAY Nasal Solution] 30 mL 0 Sig: Use 1 spray(s) in each nostril once daily Nasal Preparations - Other Protocol Passed - 02/02/2022 2:02 PM Passed - Visit with authorizing provider in past 12 months or upcoming 90 days Recent Visits Date Type Provider Dept 07/09/21 Office Visit Yusra Salazar MD [facility] 05/28/21 Office Visit Elle Marshall PAC [facility] Showing recent visits within past 365 days and meeting all other requirements Future Appointments No visits were found meeting these conditions. Showing future appointments within next 90 days and meeting all other requirements documented in this encounter Plan of Treatment Upcoming Encounters Date Type Department Care Team (Late st Contact Info) Description 05/30/2025 1:00 PM TRAPEZE ARTIST Office Visit [facility] [address] [place] [address] Juan Felix MD [address] [place] [address] Discharge Disposition: Discharged to home or Selfcare [...] RPA 08/08/2022 08/08/2022 0 08/08/2022 3:34 PM TRAPEZE ARTIST Influenza 08/08/2022 08/08/2022 08/15/2022 12:1 6 AM TRAPEZE ARTIST Assessment Noted Time PHQ-9 Depression Total Score: 25 021 5:00 PM CDT documented as of this encounter Care Teams Plastic Straightening Roll Operator Relationship Specialty Start Date End Date Yusra Salazar MD PCP - General Family Medicine 06/21/21 08/09/23 Provider, None [place] PCP - General 08/10/23 09/28/23 Wlat Gage DO [facility] [place] [address] PCP - General Internal Medicine 09/29/23 Yusra Salazar MD Family Medicine 06/21/21 10/13/23 Landry Maria MD [address] [place] [address] Consulting Physician Radiation Oncology 06/26/19 Juan Felix MD [address] [place] [address] Consulting Physician Medical Oncology 06/26/19 Annika Hartmann MD [address] [place] [address] Consulting Physician General Surgery 06/26/19 Michelle Liu III, MD [address] [place] [address] Consulting Physician Urology 12/06/22 Yoan Sharma MD [address] [place] [id number] Consulting Physician Neurology 07/26/23 Kareen Koenig APRN, STEAM SHOVEL ENGINEER [address] [place] [address] Nurse Practitioner Advanced Practice Nurse 10/14/22 documented as of this encounter
--- OUTSIDE RECORDS SUMMARY | 2025-04-29 15:39 | XMS_ITS | Encounter Summary ---
Author Organization [facility] Address [address] [place] [address] Phone Care Team Providers Care Lock Master Name Role Phone Yusra Salazar MD Primary Care Provider [phone] Yusra Salazar MD Primary Care Provider [phone] Yusra Salazar MD Unavailable Landry Maria MD Unavailable [phone] Juan Felix MD Unavailable [phone] Annika Hartmann MD Unavailable [phone] Noe ALCARAZ MD, Courtney Unavailable [phone] Yoan Sharma MD Unavailable [phone] Provider, None Primary Care Provider UnavailKareen Humphreys APRN, SUBSTATION MECHANIC Unavailable Walt Gage DO Primary Care Provider Reason for Visit * Reason Comments Medication Refill Encounter Details Date Type Department Care Team (Late st Contact Info) Description 07/28/[facility] [address] [place] [address] Juan Felix MD [address] [place] [address] Medication Refill Social History Tobacco Use Types Packs/Day Years Used Date Smoking Tobacco: Never Smokeless Tobacco: Never Alcohol Use Standard Drinks/Week Comments No 0 (1 standard drink = 0.6 oz pur e alcohol) PHQ-2 Answer Date Recorded PHQ-2 Score 14 05/28/2019 Comments No Sex and Gender Information Value Date Recorded Sex Assigned at Female 07/08/2023 8:53 PM PORTRAIT ARTIST Legal Sex Female 10:43 PM CDT Gender Identity Female 07/08/2023 8:53 PM PORTRAIT ARTIST Sexual Orientation Straight 07/08/2023 8: 59 PM PORTRAIT ARTIST 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 file documented as of this encounter Miscellaneous Notes * Telephone Encounter - Petra Anderson RN - 07/29/2020 2:10 PM PORTRAIT ARTIST Refused refill of 37.5 patient has increased to 75 mg RAIT ARTIST documented in this encounter Plan of Treatment Upcoming Encounters Date Type Department Care Team (Late st Contact Info) Description 05/30/2025 1:00 PM PORTRAIT ARTIST Office Visit [facility] [address] [place] [address] Juan Felix MD [address] [place] [address] Discharge Disposition: Discharged to home or Selfcare documented as of this encounter Visit Diagnoses Not on filedocumented in this encounter Additional Health Concerns Infection Onset Date Last Indicated Resolved Time COVID - 19 06/21/2021 06/21/2021 07/11/2021 12:1 6 AM PORTRAIT ARTIST COVID - 19 Confirmed 06/21/2021 06/21/2021 022 12:16 AM PORTRAIT ARTIST Respiratory Rule Out - RPA 08/08/2022 08/08/2022 0 08/08/2022 3:34 PM PORTRAIT ARTIST Influenza 08/08/2022 08/08/2022 08/15/2022 12:1 6 AM PORTRAIT ARTIST Assessment Noted Time PHQ-9 Depression Total Score: 14 019 2:33 PM PORTRAIT ARTIST documented as of this encounter Care Teams Lock Master Relationship Specialty Start Date End Date Yusra Salazar MD PCP - General Family Medicine 02/15/19 06/20/21 Yusra Salazar MD PCP - General Family Medicine 06/21/21 08/09/23 Provider, None [place] PCP - General 08/10/23 09/28/23 Walt Gage DO [address] [place] [address] [place], [place] [id number] PCP - General Internal Medicine 09/29/23 Yusra Salazar MD Family Medicine 06/21/21 10/13/23 Landry Maria MD [address] [place] [address] Consulting Physician Radiation Oncology 06/26/19 Juan Felix MD [address] [place] [address] Consulting Physician Medical Oncology 06/26/19 Annika Hartmann MD [address] [place] [address] Consulting Physician General Surgery 06/26/19 Michelle Liu III, MD [address] [place] [address] Consulting Physician Urology 12/06/22 Yoan Sharma MD [address] [place] [phone] Consulting Physician Neurology 07/26/23 Kareen Koenig APRN, SUBSTATION MECHANIC [address] [place] [address] Nurse Practitioner Advanced Practice Nurse 10/14/22 documented as of this encounter
--- OUTSIDE RECORDS SUMMARY | 2025-04-29 15:39 | XMS_ITS | Encounter Summary ---
Author Organization [facility] Address [address] [place] [address] Phone Care Team Providers Care Automotive Engineering Technician Name Role Phone Yusra Salazar MD Primary Care Provider Yusra Salazar MD Primary Care Provider Yusra Salazar MD Unavailable [phone] Landry Maria MD Unavailable [phone] Juan Felix MD Unavailable [phone] Annika Hartmann MD Unavailable [phone] Noe ALCARAZ MD, Courtney Unavailable [phone] Yoan Sharma MD Unavailable [phone] Provider, None Primary Care Provider UnavailKareen Humphreys APRN, IT SYSTEMS ENGINEER Unavailable Walt Gage DO Primary Care Provider Reason for Visit * Reason Comments Medication Refill Encounter Details Date Type Department Care Team (Late st Contact Info) Description 08/07/[address] [facility] [address] [place] [address] Juan Felix MD [address] [place] [address] Medication Refill Social History Tobacco Use Types Packs/Day Years Used Date Smoking Tobacco: Never Smokeless Tobacco: Never Alcohol Use Standard Drinks/Week Comments No 0 (1 standard drink = 0.6 oz pur e alcohol) PHQ-2 Answer Date Recorded PHQ-2 Score 14 05/28/2019 Comments No Sex and Gender Information Value Date Recorded Sex Assigned at Female 07/08/2023 8:53 PM ASW SPECIALIST Legal Sex Female 10:43 PM CDT Gender Identity Female 07/08/2023 8:53 PM ASW SPECIALIST Sexual Orientation Straight 07/08/2023 8: 59 PM ASW SPECIALIST 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 Not on file Not on file documented as of this encounter Miscellaneous Notes * Telephone Encounter - Petra Anderson RN - 08/07/2020 1:03 PM ASW SPECIALIST Refilled Tamoxifen SPECIALIST documented in this encounter Plan of Treatment Upcoming Encounters Date Type Department Care Team (Late st Contact Info) Description 05/30/2025 1:00 PM ASW SPECIALIST Office Visit [facility] [address] [place] [address] Juan Felix MD [address] [place] [address] Discharge Disposition: Discharged to home or Selfcare documented as of this encounter Visit Diagnoses Not on filedocumented in this encounter Additional Health Concerns Infection Onset Date Last Indicated Resolved Time COVID - 19 06/21/2021 06/21/2021 07/11/2021 12:1 6 AM ASW SPECIALIST COVID - 19 Confirmed 06/21/2021 06/21/2021 022 12:16 AM ASW SPECIALIST Respiratory Rule Out - RPA 08/08/2022 08/08/2022 0 08/08/2022 3:34 PM ASW SPECIALIST Influenza 08/08/2022 08/08/2022 08/15/2022 12:1 6 AM ASW SPECIALIST Assessment Noted Time PHQ-9 Depression Total Score: 14 019 2:33 PM ASW SPECIALIST documented as of this encounter Care Teams Automotive Engineering Technician Relationship Specialty Start Date End Date Yusra Salazar MD PCP - General Family Medicine 02/15/19 06/20/21 Yusra Salazar MD PCP - General Family Medicine 06/21/21 08/09/23 Provider, None [place] PCP - General 08/10/23 09/28/23 Walt Gage DO [address] [place] [address] PCP - General Internal Medicine 09/29/23 Yusra Salazar MD Family Medicine 06/21/21 10/13/23 Landry Maria MD [address] [place] [address] Consulting Physician Radiation Oncology 06/26/19 Juan Felix MD [address] [place] [address] Consulting Physician Medical Oncology 06/26/19 Annika Hartmann MD [address] [place] [address] Consulting Physician General Surgery 06/26/19 Michelle Liu III, MD [address] [place] [address] Consulting Physician Urology 12/06/22 Yoan Sharma MD [address] [place] [address] Consulting Physician Neurology 07/26/23 Kareen Koenig APRN, IT SYSTEMS ENGINEER [address] [place] [address] Nurse Practitioner Advanced Practice Nurse 10/14/22 documented as of this encounter
[2025-04-29 18:48] LABS: Hematocrit 45.7 % (37.0-47.0); Hemoglobin 14.9 g/dL (12.0-15.0); Immature Granulocyte Percent A 0.2 % (0-0.5); Lymphocytes Absolute Auto 1.95 K/mm3 (0.9-3.2); Mean Corpuscular HGB Conc 32.6 g/dl (32-36); Mean Corpuscular Hemoglobin 31.2 pg (26-34); Mean Corpuscular Volume 95.8 fl (80-100); Nucleated Red Blood Cells Absolute Auto 0.000 K/mm3 (0.0-0.012); Nucleated Red Blood Cells Perc 0.0 % (0.0-0.2); Platelet Count Result 162 k/mm3 (150-375); Red Blood Count 4.77 M/mm3 (4.2-5.4); White Blood Count 5.2 K/mm3 (4.5-10.0)
[2025-04-29 19:02] LABS: Alanine Aminotransferase 44 U/L (6-35); Albumin Level 4.7 g/dL (3.5-5.1); Alkaline Phosphatase 118 U/L (38-126); Anion Gap 9 mmol/L (4-12); Aspartate Amino Transferase 61 U/L (14-36); Bilirubin,Total 0.5 mg/dL (0.2-1.3); Blood Urea Nitrogen 11 mg/dL (7-17); Calcium 10.4 mg/dL (8.4-10.2); Carbon Dioxide 29 mmol/L (22-30); Chloride 103 mmol/L (98-107); Cholesterol 135 mg/dL (0-200); Estimated Glomerular Filt Rate > 60; Glucose 104 mg/dL (65-110); HDL Direct 64 mg/dL; Sodium 141 mmol/L (137-145); Total Protein 8.2 g/dL (6.3-8.2); Triglycerides 84 mg/dL (<150)
[2025-04-29 19:11] LABS: Potassium 4.0 mmol/L (3.4-5.0)
[2025-04-29 19:34] LABS: Thyroid Stimulating Hormone 1.380 uIU/mL (0.465-4.680)
[2025-05-05 10:08] LABS: Summary Report (Summary) FINAL (.)
== END 2025-04-29 15:36 | disposition home or self-care (01) ==
LOC: ANHGOSHLAB 15:36
PROVIDERS: PCP Internal Medicine; Visit Provider Internal Medicine
DX: R41.89 Other symptoms and signs involving cognitive functions and awareness (principal); F41.9 Anxiety disorder, unspecified; I10 Essential (primary) hypertension; M79.7 Fibromyalgia; E55.9 Vitamin D deficiency, unspecified; Z79.899 Other long term (current) drug therapy
CPT/HCPCS: 36415; 80053; 80061; 80307; 82306; 84443; 85025